=== PATIENT | male | born 1945 | race Caucasian/White ===

== ENCOUNTER → 2016-11-15 | Outpatient (CLI) | payer MEDICARE, OTHER | END | disposition home or self-care (01) | LOC: PCVCCLINIC 09:54 | PROVIDERS: ATTEND Internal Medicine | DX: Z01.810 Encounter for preprocedural cardiovascular examination (principal); I48.0 Paroxysmal atrial fibrillation; I49.9 Cardiac arrhythmia, unspecified; I67.9 Cerebrovascular disease, unspecified; R41.3 Other amnesia; Z79.899 Other long term (current) drug therapy; Z96.653 Presence of artificial knee joint, bilateral; Z87.891 Personal history of nicotine dependence | CPT/HCPCS: 80061; G0463 ==

== ENCOUNTER 2020-08-08 20:25 | Inpatient (IN) | payer MEDICARE, OTHER ==
[~2020-08-08] VITALS: Ht 180.3 cm; Wt 134.3 kg
[2020-08-08 20:35] VITALS: BP 166/101
--- NOTE | 2020-08-08 20:35 | NUR ---
pt. arrived on unit at this time by EMS from [facility]. Pt. complains of pain being 7/10. He is alert and oriented x4, and on 2L NC. call light is within reach with bed in lowest position. Will continue to monitor.
[2020-08-08] MEDS ORDERED: GABA600T PO (21:42)
[2020-08-08] MEDS: GABAPENTIN 300 MG CAPSULE. PO SCH (22:53)
[2020-08-08] MEDS: HYDROcodone/APAP 10/325 1 TAB TABLET PO PRN (22:53)
[2020-08-08 23:00] VITALS: BP 161/94
[2020-08-08] MEDS: IV NORMAL SALINE 1000ML BAG 1,000 ML IV SCH (23:23)
[2020-08-08] MEDS: HYDROmorphone 2 MG/ML VIAL IVP PRN (23:24)
[2020-08-09 02:57] VITALS: BP 127/86
[2020-08-09 07:00] VITALS: BP 135/89
[2020-08-09] MEDS: HYDROcodone/APAP 10/325 1 TAB TABLET PO PRN ×2 (07:08→20:47)
[2020-08-09] MEDS ORDERED: APIX5TAB PO (07:11)
--- NOTE | 2020-08-09 10:29 | NUR ---
SW following. Discussed with RN, pt from home, room air, NPO. Dr. Amaral and Dr. Underwood consulted. SW will continue to follow.
[2020-08-09] MEDS: LIDOCAINE (700MG/PATCH) PATCH. TD SCH (10:30)
--- NOTE | 2020-08-09 10:52 | PDOC1 ---
History and Physical Date of Admission Date of Admission DATE: 08/09/20 TIME: 10:50 Source Source: Chart review, Patient History of Present Illness History of Present Illness MR. Donovan is a 75-year-old male transferred here from [place] after a fall, with acute neck pain. Reports he was gardening, standing on 1 foot ledge when he fell backwards and landed on his midline of his back and subsequently hit his posterior head. 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 ALCOHOL: none Current Medications Current Medications Current Medications Hydromorphone HCl (Dilaudid) 2 mg PRN Q2HR PRN IVP PAIN Last administered on 08/08/20at 23:24; Start 08/08/20 at 21:45 Acetaminophen/ Hydrocodone Bitart (Lortab 10/325) 1 tab PRN Q6HRS PRN PO PAIN Last administered on 08/09/20at 07:08; Start 08/08/20 at 21:45 Sodium Chloride 1,000 ml @ 75 mls/hr [id number] IV Last administered on 08/08/20at 23:23; Start 08/08/20 at 21:45 Gabapentin (Neurontin) 600 mg TID PO Last administered on 08/08/20at 22:53; Start 08/08/20 at 22:00 Lidocaine (Lidoderm) 2 patch DAILY TD ; Start 08/09/20 at 10:30 Miscellaneous (Lidoderm Patch Removal) 1 ea QHS MC ; Start 08/09/20 at 21:00 Active Scripts Active Reported Eliquis (Apixaban) 5 Mg Tablet 10 Mg PO BID Neurontin (Gabapentin) 600 Mg Tablet 600 Mg PO TID Allergies Allergies: Coded Allergies: No Known Drug Allergies (Unverified , 08/08/20) ROS General: No: Chills, Night Sweats, Fatigue, Malaise, Appetite, Other PSYCHOLOGICAL ROS: No: Anxiety, Behavioral Disorder, Concentration difficultie, Decreased libido, Depression, Disorientation, Hallucinations, Hostility, Irritablity, Memory difficulties, Mood Swings, Obsessive thoughts, Physical abuse, Sexual abuse, Sleep disturbances, Suicidal ideation, Other Eyes: No Blurry vision, No Decreased vision, No Double vision, No Dry eyes, No Excessive tearing, No Eye Pain, No Itchy Eyes, No Loss of vision, No Photophobia, No Scotomata, No Uses contacts, No Uses glasses, No Other HEENT: No: Heacaches, Visual Changes, Hearing change, Nasal congestion, Nasal discharge, Oral lesions, Sinus pain, Sore Throat, Epistaxis, Sneezing, Snoring, Tinnitus, Vertigo, Vocal changes, Other Respiratory: No: Cough, Hemoptysis, Orthopnea, Pleuritic Pain, Shortness of breath, SOB with excertion, Sputum Changes, Stridor, Tachypnea, Wheezing, Other Cardiovascular: No Chest Pain, No Palpitations, No Orthopnea, No Paroxysmal Noc. Dyspnea, No Edema, No Lt Headedness, No Other Gastrointestinal: No Nausea, No Vomiting, No Abdominal Pain, No Diarrhea, No Constipation, No Melena, No Hematochezia, No Other Genitourinary: No Dysuria, No Frequency, No Incontinence, No Hematuria, No Retention, No Discharge, No Urgency, No Pain, No Flank Pain, No Other, No , No , No , No , No , No , No Musculoskeletal: Yes Joint Pain, Yes Joint Stiffness, Yes Muscle Pain; No Gait Disturbance, No Joint Swelling, No Pain In:, No Swelling In:, No Other Neurological: No Behavorial Changes, No Bowel/Bladder ControlChng, No Confusion, No Dizziness, No Gait Disturbance, No Headaches, No Impaired Coord/balance, No Memory Loss, No Numbness/Tingling, No Seizures, No Speech Problems, No Tremors, No Visual Changes, No Weakness, No Other Skin: No Dry Skin, No Eczema, No Hair Changes, No Lumps, No Mole Changes, No Mottling, No Nail Changes, No Pruritus, No Rash, No Skin Lesion Changes, No Other, No Acne Physical Exam General: Alert, mild distress HEENT: Atraumatic Heart: S1S2 Abdomen: Normal bowel sounds Extremities: No cyanosis, No edema Skin: No breakdown, No significant lesion Neuro: Normal speech, Normal tone Psych/Mental Status: Mental status NL, Mood NL Vitals Vitals Vital Signs Date Time Temp Pulse Resp B/P (MAP) Pulse Ox O2 Delivery O2 Flow Rate FiO2 08/09/20 07:08 Room Air 08/09/20 07:00 97.8 60 18 135/89 (104) 97 97.8 08/09/20 02:57 2.0 VTE Prophylaxis Ordered VTE Prophylaxis Devices: Yes VTE Pharmacological Prophylaxi: No Assessment/Plan Assessment/Plan fall, acute neck pain MRI back shows acute t7 transferse fracture, Dr. Underwood has seen, imaging reviewed consutl IR, consider kyphoplasty obese, BMI 42 Dr. Tucker from Neurosurg to see Justifications for Admission Other Justification IDANIA TALAMANTES MD Aug 09, 2020 10:52
[2020-08-09 11:00] VITALS: BP 128/74
[2020-08-09] MEDS: GABAPENTIN 300 MG CAPSULE. PO SCH ×3 (11:04→20:47)
[2020-08-09] MEDS: HYDROmorphone 2 MG/ML VIAL IVP PRN ×2 (11:09→19:11)
[2020-08-09] MEDS: IV NORMAL SALINE 1000ML BAG 1,000 ML IV SCH ×2 (12:58→23:33)
--- NOTE | 2020-08-09 13:01 | PDOC ---
Provider Note Date of Service: DATE: 08/09/20 TIME: 12:57 Provider Note Patient seen and examined at 1145 consulted for thoracic compression fracture fell backwards landing on cement c/o right anterior/ inferior chest wall pain on exam, US, normal strength, tenderness with palpation of right chest wall, sensation intact On CT there is a horizontal fracture line across the mid body of T8, the anterior longitudinal ligament is disrupted at that level MRI pending brace ordered Kj consulted Justifications for Admission Other Justification JOSEF ZHAO MD Aug 09, 2020 13:01
--- NOTE | 2020-08-09 13:32 | CONS ---
DATE OF CONSULTATION: 08/09/2020 ATTENDING PHYSICIAN: Dr. Rodriguez. The patient was seen at the request of Dr. López for rehab evaluation. 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 The patient lives alone. He is cleaning some leaves off his house, standing on a wall, lost balance and fell backwards. He was seen at [facility] Emergency Room where he had CT of the chest with contrast, pulmonary angiogram which revealed coronary artery calcification. Heart is enlarged. Thoracic aorta is mildly enlarged, measuring 4.2 cm in diameter, multiple small right paratracheal lymph nodes measuring about 7 mm short axis, mild atelectasis in the lung bases without any effusion, mild pancreatic atrophy. Surgical changes of the stomach. Acute transverse fracture through the T7 vertebral body extending through the osteophyte, anterior longitudinal ligament. There is a bridging ossification anteriorly from T2-T3 and T12-L1. No evidence of acute pulmonary embolism. The patient had a CT scan of the brain and cervical spine which revealed no acute changes. Bilateral cerebral white matter changes likely due to small vessel ischemic changes and cerebral atrophy, posterior right scalp soft tissue hematoma, multilevel degenerative change and right cervical vertebrae resulting in stenosis, moderate left foraminal and mild central canal stenosis at C2-C3, severe right foraminal stenosis at C3-C4, moderate right foraminal stenosis at C4-C5 and moderate to severe bilateral foraminal stenosis at C5-C6, narrowing of C5-C6 disk space. The patient denies any significant neck pain. He had also a chest x-ray done which failed to reveal any acute abnormality. PHYSICAL EXAMINATION: On physical examination today revealed an elderly male. He is alert, oriented to time, place, person and circumstance, follows commands appropriately, moves all 4 extremities voluntarily where he had 4+/5 grade muscle strength. Deep tendon reflexes are decreased overall with absent knee and ankle jerks and he had equal perception of touch and pinprick sensation bilaterally. He had tenderness to palpation over right mid thoracic paraspinal muscles and also over anterior aspect of the chest, junction of the sternum and lower rib. The patient mostly complains about this pain. The patient is obese. He seemed to have equal perception of touch and pinprick sensation bilaterally. He had painful range of motion of all 4 extremity joints, but resist to shoulder abduction causes increased discomfort in his chest and in his back. He had well-healed bilateral total knee arthroplasty scar. He is independent rolling from side to side. I have not tested his transfers or ambulation skills at this time. ASSESSMENT: Elderly male with recent fall off a small wall backwards and sprain, mid thoracic spine and also sprain involving sternocostal joints, right lower ribcage area. The patient with obesity, status post bilateral total knee arthroplasty without any problems and also degenerative disk disease and degenerative joint disease of cervical vertebrae with mild degree of neural foraminal compromise without any significant neck pain. Clinical evidence of peripheral neuropathy. RECOMMENDATION: Agree with the plans for right thoracolumbar support. I am not sure he can tolerate it with his big size. Ask physical therapy and occupational therapy to see him. Agreed with the plans for MRI scan and to consider kyphoplasty if back pain is bothering him, but he is having more discomfort over right lower ribcage attachment to sternum. Dr. López appreciated asking me to participate in the care of this interesting patient. I will be glad to see him for followup with you on as needed basis. DELVIN/DWAIN/DESIRAE DR: DELVIN/leigh ann TID: [id number] CC: Steven Yarbrough MD MTDD
--- NOTE | 2020-08-09 16:32 | RAD ---
MRI THORACIC SPINE WO 08/09/2020 1:57 PM INDICATION: Thoracic fracture COMPARISON: CT chest 08/08/2020. TECHNIQUE: Multiplanar, multisequence MR imaging of the thoracic spine was performed without gadolin ium based contrast. FINDINGS: There is a transversely oriented fracture through the inferior one third of the T7 thoracic vertebra with edema localized to the fracture line. There is disruption of the anterior longitudinal ligament. There is no significant disruption of posterior longitudinal ligament and ligamentum flavum. No sign ificant interspinous edema is identified. There is minimal left posterior epidural hematoma with mini mal mass effect on the thecal sac resulting in mild spinal canal stenosis at T7-T8. No significant di sc herniation, neuroforaminal or associated spinal canal stenosis. Moderate disc height loss at T7-T8 , T8-T9, T9-T10 and T10-11 with disc desiccation. Thoracic aorta is normal in caliber. Heart size is stable. Visualized upper abdomen without significant abnormality. Mild cervical spondylosis is partia lly profiled. IMPRESSION: Transversely oriented fracture involving the T7 vertebral body without significant retropulsion or he ight loss. There is a posterior epidural hematoma resulting in mild mass effect on the thecal sac wit hout compression of the cord. No cord signal alteration is identified. Electronically signed by: Daksha Irvin MD (08/09/2020 4:29 PM) [facility]
[2020-08-09 19:00] VITALS: BP 136/92
[2020-08-09] MEDS: PATCH REMOVAL. MC SCH (21:00)
[2020-08-09 23:00] VITALS: BP 128/84
[2020-08-10 03:00] VITALS: BP 156/103
[2020-08-10 07:00] VITALS: BP 154/97
[2020-08-10] MEDS: LIDOCAINE (700MG/PATCH) PATCH. TD SCH (09:00)
--- NOTE | 2020-08-10 09:55 | NUR ---
Episode this morning. Nurse walked by saw pt yelling. Pt sitting on edge of bed unable to breath c/o midsternal chest pain. BP 184/104. Called Rapid. Ordered 12 lead EKG, IV started on left hand with 22g by the tour production supervisor and gave Dilaudid. Pt stabilized. R/o cardiac issues. Pt stated feeling better. Cont. monitor.
[2020-08-10] MEDS: HYDROmorphone 2 MG/ML VIAL IVP PRN (10:05)
--- NOTE | 2020-08-10 10:09 | PDOC ---
PROGRESS NOTES Date of Service DATE: 08/10/20 TIME: 10:03 Subjective Subjective He admits continued right anterior chest wall pain. Objective Objective Vital Signs Date Time Temp Pulse Resp B/P (MAP) Pulse Ox O2 Delivery O2 Flow Rate FiO2 08/10/20 07:00 98.4 75 18 154/97 (116) 95 Room Air 98.4 08/09/20 21:20 2.0 Intake and Output 08/10/20 07:00 Intake Total 400 ml Output Total 200 ml Balance 200 ml Intake Oral 400 ml Output Urine Total 200 ml # Voids 1 Physical Exam Physical Exam He is sitting at edge of bed with back brace at bedside and he is having difficulty with breathing requiring oxygen by nasal canula and he had his B P at 170/101 mm Hg. Plan Plan of Care To continue present physical and occupational therapy follow up a he can tolerate. Comment Review of Relevant I have reviewed the following items brooks (where applicable) has been applied. Medications Current Medications Hydromorphone HCl (Dilaudid) 2 mg PRN Q2HR PRN IVP PAIN Last administered on 08/09/20at 19:11; Start 08/08/20 at 21:45 Acetaminophen/ Hydrocodone Bitart (Lortab 10/325) 1 tab PRN Q6HRS PRN PO PAIN Last administered on 08/09/20at 20:47; Start 08/08/20 at 21:45 Sodium Chloride 1,000 ml @ 75 mls/hr [id number] IV Last administered on 08/09/20at 12:58; Start 08/08/20 at 21:45 Gabapentin (Neurontin) 600 mg TID PO Last administered on 08/09/20at 20:47; Start 08/08/20 at 22:00 Lidocaine (Lidoderm) 2 patch DAILY TD ; Start 08/09/20 at 10:30 Miscellaneous (Lidoderm Patch Removal) 1 ea QHS MC ; Start 08/09/20 at 21:00 Active Scripts Active Reported Eliquis (Apixaban) 5 Mg Tablet 10 Mg PO BID Neurontin (Gabapentin) 600 Mg Tablet 600 Mg PO TID Vitals/I & O Vital Sign - Last 24 Hours 08/09/20 08/09/20 08/09/20 08/09/20 11:00 11:09 12:59 19:00 Temp 98.0 98.7 98.0 98.7 Pulse 72 90 Resp 18 18 B/P (MAP) 128/74 (92) 136/92 (107) Pulse Ox 97 97 96 O2 Delivery Room Air Room Air Room Air Room Air O2 Flow Rate 2.0 08/09/20 08/09/20 08/09/20 08/09/20 19:11 19:41 19:59 20:47 O2 Delivery Nasal Cannula Nasal Cannula Nasal Cannula Room Air O2 Flow Rate 2.0 2.0 2.0 08/09/20 08/09/20 08/10/20 08/10/20 21:20 23:00 03:00 07:00 Temp 98.2 98.0 98.4 98.2 98.0 98.4 Pulse 76 71 75 Resp 18 18 18 B/P (MAP) 128/84 (99) 156/103 (120) 154/97 (116) Pulse Ox 93 97 95 O2 Delivery Nasal Cannula Room Air Room Air Room Air O2 Flow Rate 2.0 Intake and Output 08/09/20 08/09/20 08/10/20 15:00 23:00 07:00 Intake Total 400 ml Output Total 200 ml Balance 200 ml Justifications for Admission Other Justification EMANUEL KUHN MD Aug 10, 2020 10:09
--- NOTE | 2020-08-10 10:11 | EKG ---
[facility] [address] [place] [address] Test Date: 2020-08-10 Test Time: 10:06:39 Pat Name: TAYLOR MCDUFFIE Department: Room: 442 Gender: M Records Coordinator: YVETTE : 1945 Requested By: IDANIA TALAMANTES Order Number: [id number] Reading MD: Tank Sepulveda Measurements Intervals [place] Rate: 81 P: ME: QRS: 2 QRSD: 108 T: 9 QT: 368 QTc: 433 Interpretive Statements ATRIAL FIBRILLATION Electronically Signed On 08-17-2020 12:56:18 CDT by Tank Sepulveda
[2020-08-10 11:00] VITALS: BP 145/92
[2020-08-10] MEDS ORDERED: LIDO700A21 TD (11:59)
[2020-08-10] MEDS ORDERED: OXYC-325 PO (11:59)
--- NOTE | 2020-08-10 12:03 | PDOC ---
[employer] PROGRESS NOTE Date of Service DOS: DATE: 08/10/20 TIME: 12:02 Chief Complaint Chief Complaint fall, acute neck pain MRI back shows acute t7 transferse fracture, Afib, on eliquis, chronic diastolic CHF obese, BMI 42 History of Present Illness History of Present Illness no surg plans, to wear brace for 2 weeks and follow in neurosurg office pain is too severe for him to get up without assist, may need skilled Vitals/I&O Vitals/I&O: Vital Signs Date Time Temp Pulse Resp B/P (MAP) Pulse Ox O2 Delivery O2 Flow Rate FiO2 08/10/20 07:00 98.4 75 18 154/97 (116) 95 Room Air 98.4 08/09/20 21:20 2.0 I & O 08/09/20 08/09/20 08/10/20 15:00 23:00 07:00 Intake Total 400 ml Output Total 200 ml Balance 200 ml Physical Exam General: Alert, mild distress Heart: Regular rate Abdomen: Normal bowel sounds Extremities: No cyanosis, No edema Skin: No breakdown, No significant lesion Comment Review of Relevant I have reviewed the following items brooks (where applicable) has been applied. Justifications for Admission Other Justification IDANIA TALAMANTES MD Aug 10, 2020 12:03
[2020-08-10] MEDS: GABAPENTIN 300 MG CAPSULE. PO SCH ×3 (12:24→22:08)
[2020-08-10] MEDS: HYDROcodone/APAP 10/325 1 TAB TABLET PO PRN ×2 (12:33→22:08)
--- NOTE | 2020-08-10 12:45 | PDOC ---
PROGRESS NOTES Date of Service DATE: 08/10/20 TIME: 12:42 Subjective Subjective C/O back pain and spasms when getting up out of bed Objective Objective Vital Signs Date Time Temp Pulse Resp B/P (MAP) Pulse Ox O2 Delivery O2 Flow Rate FiO2 08/10/20 12:33 Nasal Cannula 08/10/20 11:00 97.8 66 18 145/92 (109) 98 97.8 08/09/20 21:20 2.0 Intake and Output 08/10/20 07:00 Intake Total 400 ml Output Total 200 ml Balance 200 ml Intake Oral 400 ml Output Urine Total 200 ml # Voids 1 Physical Exam General: Alert, Oriented X3, Cooperative MUSCULOSKELETAL: Other (US) Plan Plan of Care Transversely oriented fracture involving the T7 vertebral body without significant retropulsion or height loss. needs to wear brace when up except for when showering will need to follow in 2 weeks with thoracic spine films PT May need to go to rehab/ SNF D/W Dr. López Comment Review of Relevant I have reviewed the following items brooks (where applicable) has been applied. Medications Current Medications Hydromorphone HCl (Dilaudid) 2 mg PRN Q2HR PRN IVP PAIN Last administered on 08/10/20at 10:05; Start 08/08/20 at 21:45 Acetaminophen/ Hydrocodone Bitart (Lortab 10/325) 1 tab PRN Q6HRS PRN PO PAIN Last administered on 08/10/20at 12:33; Start 08/08/20 at 21:45 Sodium Chloride 1,000 ml @ 75 mls/hr [id number] IV Last administered on 08/09/20at 12:58; Start 08/08/20 at 21:45 Gabapentin (Neurontin) 600 mg TID PO Last administered on 08/10/20at 12:24; Start 08/08/20 at 22:00 Lidocaine (Lidoderm) 2 patch DAILY TD ; Start 08/09/20 at 10:30 Miscellaneous (Lidoderm Patch Removal) 1 ea QHS MC ; Start 08/09/20 at 21:00 Active Scripts Active Reported Eliquis (Apixaban) 5 Mg Tablet 10 Mg PO BID Neurontin (Gabapentin) 600 Mg Tablet 600 Mg PO TID Vitals/I & O Vital Sign - Last 24 Hours 08/09/20 08/09/20 08/09/20/29/21 12:59 19:00 19:11 19:41 Temp 98.7 98.7 Pulse 90 Resp 18 B/P (MAP) 136/92 (107) Pulse Ox 97 96 O2 Delivery Room Air Room Air Nasal Cannula Nasal Cannula O2 Flow Rate 2.0 2.0 2.0 08/09/20 08/09/20 08/09/20 08/09/20 19:59 20:47 21:20 23:00 Temp 98.2 98.2 Pulse 76 Resp 18 B/P (MAP) 128/84 (99) Pulse Ox 93 O2 Delivery Nasal Cannula Room Air Nasal Cannula Room Air O2 Flow Rate 2.0 2.0 08/10/20 08/10/20 08/10/20 08/10/20 03:00 07:00 11:00 12:33 Temp 98.0 98.4 97.8 98.0 98.4 97.8 Pulse 71 75 66 Resp 18 18 18 B/P (MAP) 156/103 (120) 154/97 (116) 145/92 (109) Pulse Ox 97 95 98 O2 Delivery Room Air Room Air Room Air Nasal Cannula Intake and Output 08/09/20 08/09/20 08/10/20 15:00 23:00 07:00 Intake Total 400 ml Output Total 200 ml Balance 200 ml Justifications for Admission Other Justification JOSEF ZHAO MD Aug 10, 2020 12:45
[2020-08-10] MEDS ORDERED: POLYETHYLENE GLYCOL 3350 17 GM PACKET. PO ONE (13:00)
[2020-08-10 15:00] VITALS: BP 145/84
--- NOTE | 2020-08-10 16:00 | NUR ---
Up in chair with TLSO brace. Feeling lots better. Cont. monitor.
[2020-08-10 19:00] VITALS: BP 150/98
[2020-08-10] MEDS: PATCH REMOVAL. MC SCH (22:07)
[2020-08-10] MEDS: IV NORMAL SALINE 1000ML BAG 1,000 ML IV SCH (22:07)
[2020-08-10 23:00] VITALS: BP 139/75
[2020-08-11 03:00] VITALS: BP 138/88
[2020-08-11] MEDS: IV NORMAL SALINE 1000ML BAG 1,000 ML IV SCH ×2 (03:05→18:21)
[2020-08-11] MEDS ORDERED: ALBUTEROL SULFATE 2.5 MG/3 ML NEBU. NEB PRN (03:15)
[2020-08-11] MEDS: HYDROmorphone 2 MG/ML VIAL IVP PRN ×3 (06:10→20:59)
--- NOTE | 2020-08-11 06:58 | RAD ---
XR CHEST 1V INDICATION: increased wheezing . COMPARISON STUDY: 08/08/2020. FINDINGS: Lungs: Normal lung volume. No focal airspace disease. Normal pulmonary vasculature. Pleura: No pleural effusion or pneumothorax. Heart and Mediastinum: Stable cardiomediastinal silhouette and great vessels. IMPRESSION: No consolidation. Electronically signed by: Blane Masterson MD (08/11/2020 6:55 AM) [facility] CENTERSulma
[2020-08-11 07:00] VITALS: BP 141/98
--- NOTE | 2020-08-11 07:16 | NUR ---
0600- pt. had an increased amount of wheezing this morning. RT was paged for a breathing treatment and they stated pt. seems VERY wheezy so RN called MD for a chest xray and pulmonary consult. Pt. is stable now.
--- NOTE | 2020-08-11 08:38 | PDOC ---
PULMONARY PROGRESS NOTES DATE: 08/11/20 TIME: 08:38 Vitals Vital Signs Date Time Temp Pulse Resp B/P (MAP) Pulse Ox O2 Delivery O2 Flow Rate FiO2 08/11/20 06:40 Nasal Cannula 2.0 08/11/20 06:31 98 08/11/20 03:00 98.5 65 18 138/88 (105) 98.5 Medications Active Scripts Medications Dose Route/Sig Max Daily Dose Days Date Category Eliquis (Apixaban) 5 Mg Tablet 10 Mg PO BID 08/09/20 Reported Neurontin (Gabapentin) 600 Mg Tablet 600 Mg PO TID 08/08/20 Reported Impression . Full note dictated Nonspecific bronchitis, wheezing, see orders. DARIAN KYLE MD Aug 11, 2020 08:38
[2020-08-11] MEDS: LIDOCAINE (700MG/PATCH) PATCH. TD SCH (09:00)
[2020-08-11] MEDS: POLYETHYLENE GLYCOL 3350 17 GM PACKET. PO SCH (09:00)
[2020-08-11] MEDS: GABAPENTIN 300 MG CAPSULE. PO SCH ×3 (09:24→20:59)
[2020-08-11] MEDS: HYDROcodone/APAP 10/325 1 TAB TABLET PO PRN ×2 (09:25→18:20)
[2020-08-11] MEDS: DOCUSATE SODIUM 100 MG CAPSULE. PO SCH (09:26)
--- NOTE | 2020-08-11 09:43 | PDOC ---
PROGRESS NOTES Date of Service DATE: 08/11/20 TIME: 09:41 Subjective Subjective He continues with right lower chest wall pain anteriorly over rib cage attachment to sternum. Objective Objective Vital Signs Date Time Temp Pulse Resp B/P (MAP) Pulse Ox O2 Delivery O2 Flow Rate FiO2 08/11/20 09:25 Nasal Cannula 4.0 08/11/20 07:00 97.1 79 12 141/98 (112) 98 97.1 Intake and Output 08/11/20 07:00 Intake Total 690 ml Balance 690 ml Intake Oral 690 ml # Voids 3 Physical Exam Physical Exam He is alert,using oxygen by nasal canula and sitting in bed with head end propped up and he continues to get up with therapy with brace on and he needs assistance to don back brace. Plan Plan of Care To SNF when medically stable as he lives alone. Comment Review of Relevant I have reviewed the following items brooks (where applicable) has been applied. Medications Current Medications Hydromorphone HCl (Dilaudid) 2 mg PRN Q2HR PRN IVP PAIN Last administered on 08/11/20at 06:10; Start 08/08/20 at 21:45 Acetaminophen/ Hydrocodone Bitart (Lortab 10/325) 1 tab PRN Q6HRS PRN PO PAIN Last administered on 08/11/20at 09:25; Start 08/08/20 at 21:45 Sodium Chloride 1,000 ml @ 75 mls/hr [id number] IV Last administered on 08/09/20at 12:58; Start 08/08/20 at 21:45 Gabapentin (Neurontin) 600 mg TID PO Last administered on 08/11/20at 09:24; Start 08/08/20 at 22:00 Lidocaine (Lidoderm) 2 patch DAILY TD ; Start 08/09/20 at 10:30 Miscellaneous (Lidoderm Patch Removal) 1 ea QHS MC ; Start 08/09/20 at 21:00 Polyethylene Glycol (miraLAX PACKET) 17 gm 1X ONCE PO ; Start 08/10/20 at 13:00; Stop 08/10/20 at 13:07; Status DC Polyethylene Glycol (miraLAX PACKET) 17 gm DAILY PO ; Start 08/11/20 at 09:00 Docusate Sodium (Colace) 100 mg DAILY PO Last administered on 08/11/20at 09:26; Start 08/11/20 at 09:00 Albuterol Sulfate (Ventolin Neb Soln) 2.5 mg PRN Q4HRS PRN NEB SHORTNESS OF BREATH; Start 08/11/20 at 03:15 Lorazepam (Ativan Inj) 0.5 mg PRN Q4HRS PRN IVP ANXIETY / AGITATION; Start 08/11/20 at 03:15 Active Scripts Active Reported Eliquis (Apixaban) 5 Mg Tablet 10 Mg PO BID Neurontin (Gabapentin) 600 Mg Tablet 600 Mg PO TID Vitals/I & O Vital Sign - Last 24 Hours 08/10/20 08/10/20 08/10/20 08/10/20 10:35 11:00 12:33 14:00 Temp 97.8 97.8 Pulse 66 Resp 18 B/P (MAP) 145/92 (109) Pulse Ox 98 O2 Delivery Room Air Room Air Nasal Cannula Room Air O2 Flow Rate 3.0 08/10/20 08/10/20 08/10/20 08/10/20 15:00 19:00 20:00 22:08 Temp 98.1 98.1 98.1 98.1 Pulse 77 76 Resp 18 18 B/P (MAP) 145/84 (104) 150/98 (115) Pulse Ox 98 98 O2 Delivery Room Air Room Air Nasal Cannula Nasal Cannula O2 Flow Rate 2.0 2.0 08/10/20 08/10/20 08/11/20 08/11/20 22:40 23:00 03:00 06:10 Temp 98.3 98.5 98.3 98.5 Pulse 65 65 Resp 18 18 B/P (MAP) 139/75 (96) 138/88 (105) Pulse Ox 98 98 O2 Delivery Nasal Cannula Room Air Room Air Nasal Cannula O2 Flow Rate 2.0 2.0 08/11/20 08/11/20 08/11/20 08/11/20 06:31 06:40 07:00 09:25 Temp 97.1 97.1 Pulse 79 Resp 12 B/P (MAP) 141/98 (112) Pulse Ox 98 98 O2 Delivery Nasal Cannula Nasal Cannula Room Air Nasal Cannula O2 Flow Rate 4.0 2.0 2.0 4.0 Intake and Output 08/10/20 08/10/20 08/11/20 15:00 23:00 07:00 Intake Total 240 ml 450 ml Balance 240 ml 450 ml Justifications for Admission Other Justification EMANUEL KUHN MD Aug 11, 2020 09:43
--- NOTE | 2020-08-11 09:47 | PDOC ---
PROGRESS NOTES Date of Service: DATE: 08/11/20 TIME: 09:46 Chief Complaint Chief Complaint impression fall, acute neck pain MRI back shows acute t7 transferse fracture, Transversely oriented fracture involving the T7 vertebral body without significant retropulsion or height loss. posterior epidural hematoma resulting in mild mass effect on the thecal sac without compression of the cord. No cord signal alteration is identified. Afib, on eliquis, chronic diastolic CHF, consult cardiology re eliquis obese, BMI 42 needs to wear brace when up except for when showering neurosurgery follow in 2 weeks with thoracic spine films PT May need to go to rehab/ SNF d/w rn Defer restarting eliquis to cardiology and Neurosurgery The LV EF is about 55%. The LA is mildly enlarged. The aortic root and the proximal ascending aorta are mildly enlarged. Mild MR and mild TR noted. The PA systolic pressure is mildly elevated. STRESS TEST STRESS TEST FINDINGS: 03/04/2017 [facility] Pharmacological Stress Electrocardiogram: The patient's resting heart rate was 65 bpm and the resting blood pressure was 168/68. The patients peak stress heart rate was 91 bpm and the peak stress blood pressure was 158/87. His resting ECG demonstrated atrial fibrillation with a heart rate of 53, there are nonspecific T-wave changes noted. During pharmacologic stress he complained of shortness of breath. This resolved during the recovery phase. During the stress and the recovery phase he had occasional PVCs. He remained in atrial fib throughout. There is no ST segment changes noted. Conclusion: Pharmacologic stress ECG is negative for ischemia. 08-11 d/w rn 39 min pt exam, chart review, > 50% of time spent with exam, chart review, pt care coordination History of Present Illness History of Present Illness no surg plans, to wear brace for 2 weeks and follow in neurosurg office pain is too severe for him to get up without assist, may need skilled The LV EF is about 55%. The LA is mildly enlarged. The aortic root and the proximal ascending aorta are mildly enlarged. Mild MR and mild TR noted. The PA systolic pressure is mildly elevated. STRESS TEST STRESS TEST FINDINGS: 03/04/2017 [facility] Pharmacological Stress Electrocardiogram: The patient's resting heart rate was 65 bpm and the resting blood pressure was 168/68. The patients peak stress heart rate was 91 bpm and the peak stress blood pressure was 158/87. His resting ECG demonstrated atrial fibrillation with a heart rate of 53, there are nonspecific T-wave changes noted. During pharmacologic stress he complained of shortness of breath. This resolved during the recovery phase. During the stress and the recovery phase he had occasional PVCs. He remained in atrial fib throughout. There is no ST segment changes noted. Conclusion: Pharmacologic stress ECG is negative for ischemia. Vitals Vitals Vital Signs Date Time Temp Pulse Resp B/P (MAP) Pulse Ox O2 Delivery O2 Flow Rate FiO2 08/11/20 09:25 Nasal Cannula 4.0 08/11/20 07:00 97.1 79 12 141/98 (112) 98 97.1 Physical Exam General: Alert, Oriented X3, Cooperative, No acute distress Heart: Regular rate, Normal S2 Lungs: Clear Abdomen: Normal bowel sounds, Soft Extremities: No clubbing, No cyanosis, No edema Skin: No rashes, No breakdown, No significant lesion Labs LABS Ambulation Comments * Patient requiring MOD A for walker management and cues to stay within base of support of roller walker for increased safety/stability. Pt. with decreased knee ext with gait bilaterally. Patient with noticeable lean towards L side and needing frequent verbal cues to stay more upright with gait. Other Information * PT will recommend acute rehab to address deficits noted with strength, balance, and activity tolerance impacting safe, functional mobility. Rehab Potential to Achieve Goals * Good Learning Preferences * One-on-One Instruction * Group Instruction * Audio * Discussion Factors Facilitating Goal Achievement * Prior level of function * Response to training Problem List (body system elements) * Impaired fnctnl mobility * Strength * Obesity * Balance * Respiration/perfusion * Age * Knowledge-safe techniques * Skin Integrity * Pain Clinical Presentation * Evolving Evaluation Complexity Level * Moderate Complexity Pt/caregiver agrees with plan of care/goals * Yes Patient condition at conclusion of therapy * Pt in chair * Call light in reach * Phone in reach * PtIn no apparent distress * Pt denies further needs * Visitor with patient Communicated Patient Care With (Name, Title) * Neda RN; TITUS Boswell Goal 1 - Bed Mobility Assistance Required * Independent Goal 2 - Transfers Assistance Required * Independent Goal 2 - Transfer Type * Sit to Stand Goal 3 - Ambulation Assistance Required * Independent Goal 3 - Ambulation Distance * 250' Goal 3 - Ambulation Device * Roller Walker Goal 4 - Stairs Assistance Required * Stand-by Assistance Goal 4 - Number of Stairs * 2-4 Goal 4 - Device on Stairs * Rail on Right * Rail on Left Treatment Plan * Therapeutic Exercise * Bed Mobility Training * Transfer training * Gait Training * Body Mechanics Training * Dynamic Balance Training Frequency of Treatment Expected * 5 visits/week Duration of Treatment Expected * 2 weeks Discharge Recommendations * Acute Rehab facility PATIENT: TAYLOR MCDUFFIE ACCOUNT: [id number] : 1945 LOCATION: [address] [place] [address] AGE: 75 SEX: M EXAM STATUS: ADM IN ORD. PHYSICIAN: IDANIA TALAMANTES MD REASON: increased wheezing PROCEDURE: CHEST AP ONLY XR CHEST 1V INDICATION: increased wheezing . COMPARISON STUDY: 08/08/2020. FINDINGS: Lungs: Normal lung volume. No focal airspace disease. Normal pulmonary vasculature. Pleura: No pleural effusion or pneumothorax. Heart and Mediastinum: Stable cardiomediastinal silhouette and great vessels. IMPRESSION: No consolidation. Electronically signed by: Willa Masterson MD (08/11/2020 6:55 AM) [facility] DICTATED and SIGNED BY: WILLA MASTERSON MD DATE: 08/11/20 [id number] PATIENT: TAYLOR MCDUFFIE ACCOUNT: [id number] : 1945 LOCATION: [address] [place] [address] AGE: 75 SEX: M EXAM STATUS: ADM IN ORD. PHYSICIAN: JOSEF ZHAO MD REASON: thoracic fracture, T8 PROCEDURE: THORACIC SPINE WO CONTRAST MRI THORACIC SPINE WO 08/09/2020 1:57 PM INDICATION: Thoracic fracture COMPARISON: CT chest 08/08/2020. TECHNIQUE: Multiplanar, multisequence MR imaging of the thoracic spine was performed without gadolinium based contrast. FINDINGS: There is a transversely oriented fracture through the inferior one third of the T7 thoracic vertebra with edema localized to the fracture line. There is disruption of the anterior longitudinal ligament. There is no significant disruption of posterior longitudinal ligament and ligamentum flavum. No significant interspinous edema is identified. There is minimal left posterior epidural hematoma with minimal mass effect on the thecal sac resulting in mild spinal canal stenosis at T7-T8. No significant disc herniation, neuroforaminal or associated spinal canal stenosis. Moderate disc height loss at T7-T8, T8-T9, T9-T10 and T10-11 with disc desiccation. Thoracic aorta is normal in caliber. Heart size is stable. Visualized upper abdomen without significant abnormality. Mild cervical spondylosis is partially profiled. IMPRESSION: Transversely oriented fracture involving the T7 vertebral body without significant retropulsion or height loss. There is a posterior epidural hematoma resulting in mild mass effect on the thecal sac without compression of the cord. No cord signal alteration is identified. Electronically signed by: Vikas Duffy MD (08/09/2020 4:29 PM) [facility] DICTATED and SIGNED BY: VIKAS DUFFY MD DATE: 08/09/20 [id number] It helps to think and talk about your own wishes for healthcare in case youre ever not able to tell your loved ones or healthcare team what your wishes are. If you became really sick tomorrow, would your loved ones or healthcare team know what your wishes were? Here are some examples of different sets of goals and health care directives for your conversations: My wish is to use all medical therapies including resuscitation (such as CPR) and artificial life- sustaining treatments (such as machines and medicine) in an intensive care unit, to keep me alive if at all possible. My wish is to live as long as possible, but I dont want attempts to bring me back to life if my heart and breathing stop. I would like full medical care but without using resuscitation or artificial life-sustaining intensive treatments, if these are unlikely to make me live longer or restore me to a certain quality of life. I will accept treatments that try to fix medical problems, but if Im not getting better or going to have a certain quality of life, I would want to switch to focusing only on my comfort and letting my happen naturally. My wish is for healthcare to focus on my comfort and lessen suffering. I would like medical care that focuses only on my quality of life and that allows me to naturally. Consider: What does a good quality of life mean for me? For many people, it is the ability to live independently and tell their own story. I may define it differently. Under what circumstances would I not want to be kept alive by medical treatments, resuscitation, or intensive care? What kind of changes to my health or life might make me change my mind? If I clearly am facing the last chapter of my life, how do I want the story to end? Who do I want to speak for me if I cant speak for myself? Do they understand my preferences? Are they willing to assume the role of my Durable Power of Serger? Can I change my Goals of Care Designation? Yes, your Goals of Care Designation can be changed at any time. It should be reviewed if: your health condition changes your circumstances change (such as new understanding) you are transferred or admitted to another healthcare setting dpoa review, to pt portal 19 min and question review Comment Review of Relevant I have reviewed the following items brooks (where applicable) has been applied. Medications Current Medications Hydromorphone HCl (Dilaudid) 2 mg PRN Q2HR PRN IVP PAIN Last administered on 08/11/20at 06:10; Start 08/08/20 at 21:45 Acetaminophen/ Hydrocodone Bitart (Lortab 10/325) 1 tab PRN Q6HRS PRN PO PAIN Last administered on 08/11/20at 09:25; Start 08/08/20 at 21:45 Sodium Chloride 1,000 ml @ 75 mls/hr [id number] IV Last administered on 08/09/20at 12:58; Start 08/08/20 at 21:45 Gabapentin (Neurontin) 600 mg TID PO Last administered on 08/11/20at 09:24; Start 08/08/20 at 22:00 Lidocaine (Lidoderm) 2 patch DAILY TD ; Start 08/09/20 at 10:30 Miscellaneous (Lidoderm Patch Removal) 1 ea QHS MC ; Start 08/09/20 at 21:00 Polyethylene Glycol (miraLAX PACKET) 17 gm 1X ONCE PO ; Start 08/10/20 at 1 3:00; Stop 08/10/20 at 13:07; Status DC Polyethylene Glycol (miraLAX PACKET) 17 gm DAILY PO ; Start 08/11/20 at 09:00 Docusate Sodium (Colace) 100 mg DAILY PO Last administered on 08/11/20at 09:26; Start 08/11/20 at 09:00 Albuterol Sulfate (Ventolin Neb Soln) 2.5 mg PRN Q4HRS PRN NEB SHORTNESS OF BREATH; Start 08/11/20 at 03:15 Lorazepam (Ativan Inj) 0.5 mg PRN Q4HRS PRN IVP ANXIETY / AGITATION; Start 08/11/20 at 03:15 Active Scripts Active Reported Eliquis (Apixaban) 5 Mg Tablet 10 Mg PO BID Neurontin (Gabapentin) 600 Mg Tablet 600 Mg PO TID Vitals/I & O Vital Sign - Last 24 Hours 08/10/20 08/10/20 08/10/20 08/10/20 10:35 11:00 12:33 14:00 Temp 97.8 97.8 Pulse 66 Resp 18 B/P (MAP) 145/92 (109) Pulse Ox 98 O2 Delivery Room Air Room Air Nasal Cannula Room Air O2 Flow Rate 3.0 08/10/20 08/10/20 08/10/20 08/10/20 15:00 19:00 20:00 22:08 Temp 98.1 98.1 98.1 98.1 Pulse 77 76 Resp 18 18 B/P (MAP) 145/84 (104) 150/98 (115) Pulse Ox 98 98 O2 Delivery Room Air Room Air Nasal Cannula Nasal Cannula O2 Flow Rate 2.0 2.0 08/10/20 08/10/20 08/11/20 08/11/20 22:40 23:00 03:00 06:10 Temp 98.3 98.5 98.3 98.5 Pulse 65 65 Resp 18 18 B/P (MAP) 139/75 (96) 138/88 (105) Pulse Ox 98 98 O2 Delivery Nasal Cannula Room Air Room Air Nasal Cannula O2 Flow Rate 2.0 2.0 08/11/20 08/11/20 08/11/20 08/11/20 06:31 06:40 07:00 09:25 Temp 97.1 97.1 Pulse 79 Resp 12 B/P (MAP) 141/98 (112) Pulse Ox 98 98 O2 Delivery Nasal Cannula Nasal Cannula Room Air Nasal Cannula O2 Flow Rate 4.0 2.0 2.0 4.0 Intake and Output 08/10/20 08/10/20 08/11/20 15:00 23:00 07:00 Intake Total 240 ml 450 ml Balance 240 ml 450 ml Justicifation of Admission Dx: Justifications for Admission: Justification of Admission Dx: Yes Fracture: Fracture FULBRIGHT,LEEANN W MD Aug 11, 2020 09:47
[2020-08-11 11:00] VITALS: BP 119/78
[2020-08-11 11:23] LABS: BASO % 0 % (0-3); EOS # 0.1 x10^3/uL (0.0-0.7); EOS % 2 % (0-3); HEMATOCRIT 38.2 % (39.0-53.0); HEMOGLOBIN 11.9 g/dL (13.0-17.5); LYMPH % 11 % (24-48); MEAN CORPUSCULAR HEMOGLOBIN 23 pg (25-35); MEAN CORPUSCULAR HGB CONC 31 g/dL (31-37); MEAN CORPUSCULAR VOLUME 74 fL (79-100); MONO # 1.1 x10^3/uL (0.0-1.1); MONO % 13 % (0-9); NEUT # 6.3 x10^3/uL (1.8-7.7); NEUT % 74 % (31-73); PLATELET COUNT 169 x10^3/uL (140-400); RED BLOOD COUNT 5.17 x10^6/uL (4.30-5.70); RED CELL DISTRIBUTION WIDTH 16.5 % (11.5-14.5); WHITE BLOOD COUNT 8.4 x10^3/uL (4.0-11.0)
[2020-08-11 11:34] LABS: ALBUMIN 3.3 g/dL (3.4-5.0); CALCIUM 8.3 mg/dL (8.5-10.1); CREATININE 1.1 mg/dL (0.7-1.3); GFR 64.9; POTASSIUM 4.3 mmol/L (3.5-5.1); TOTAL BILIRUBIN 1.3 mg/dL (0.2-1.0); TOTAL PROTEIN 6.6 g/dL (6.4-8.2)
--- NOTE | 2020-08-11 12:28 | NUR ---
[facility] following. Discussed with RN, pt from home alone, 2L (does not use at home), regular diet. Therapy recommending SNF. Pt's daughter, Raven would like him to go to [facility] if pt agreeable. [facility] met with pt, pt agreeable. [facility]H phoned and faxed referral to [facility]. COVID pending for placement - pt has had the COVID vaccine also. Awaiting acceptance decision, and confirmation of when pt will be ready to discharge. [facility]H will continue to follow. Addendum: 08/11/20 at 1524 by PAO CAO Pt accepted at [facility] - plan for discharge tomorrow (08/12/20). RN notified.
--- NOTE | 2020-08-11 13:24 | PDOC2 ---
TERRELL BLACK CATAPULT AND ARRESTING GEAR OFFICER 08/11/20 1323: CARDIAC CONSULT DATE OF CONSULT Date of Consult DATE: 08/11/20 TIME: 13:09 REASON FOR CONSULT Reason for Consult: AFIB on eliquis REFERRING PHYSICIAN Referring Physician: Dwayne SOURCE Source: Chart review, Patient HISTORY OF PRESENT ILLNESS HISTORY OF PRESENT ILLNESS This is a 75 yo male admitted for fall. 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 No lost of consciousness but did have some chest pain, back pain and SOA after the fall which is now absemt. No surgeries warranted at this time and has a thoracic brace. He was initially evaluated at [facility] and transferred to [facility] for further neurosurgery evaluation. He has hx of AFIB and takes eliquis. Apparently he is not on any rate controlling agents. Based on cardiac records he has been on chronic afib at least since 2018. No prior cardioversion and was seen last in 2018 cardiology at [facility]. He has not followed up with any cardiologi st since. He lives alone with his dog. No chest pain, SOA, palpitations no recent episodes of frequent dizziness or syncope prior to his fall. No hx of seziures. No bleeding issues. No prior hx of CAD nor VTE. No frequent falls. PAST MEDICAL HISTORY Cardiovascular: AFIB, HTN, Syncope, Other (NSVT; aortic root enlargement) Pulmonary: No pertinent hx CENTRAL NERVOUS SYSTEM: Other (lacunar infarcts) GI: GERD Heme/Onc: Cancer (prostate) Psych: No pertinent hx Musculoskeletal: Osteoarthritis Renal/: Prostate Ca. Endocrine: No pertinent hx Dermatology: No pertinent hx PAST SURGICAL HISTORY Past Surgical History: Cataract Removal, Hernia Repair (umbilical and right inguinal), Total knee replacement (bilateral), Other (prostatectomy) FAMILY HISTORY Family History: Family History Unknown SOCIAL HISTORY Smoke: No ALCOHOL: none Drugs: None CURRENT MEDICATIONS CURRENT MEDICATIONS Current Medications Medications (Trade) Dose Ordered Sig/Alon Route PRN Reason Start Time Stop Time Status Last Admin Dose Admin Docusate Sodium (Colace) 100 mg DAILY PO 08/11/20 09:00 08/11/20 09:26 ALLERGIES ALLERGIES: Coded Allergies: No Known Drug Allergies (Unverified , 08/08/20) ROS Review of System 14 point ROS evaluated with pertinent positives noted per HPI PHYSICAL EXAM General: Alert, Oriented X3, Cooperative, No acute distress HEENT: Atraumatic, Mucous membr. moist/pink Lungs: Clear to auscultation, Normal air movement, Other (thoracic brace in place) Heart: Other (irregularly irregular) Extremities: No cyanosis, Other (1+ bilateral LE pitting edema) Skin: No breakdown, No significant lesion Neuro: Normal speech, Sensation intact Psych/Mental Status: Mental status NL, Mood NL MUSCULOSKELETAL: Osteoarthritic changes both hands VITALS/I&O VITALS/I&O: Vital Signs Date Time Temp Pulse Resp B/P (MAP) Pulse Ox O2 Delivery O2 Flow Rate FiO2 08/11/20 11:00 98.3 73 13 119/78 (92) 98 Nasal Cannula 2.0 98.3 I & O 08/10/20 08/10/20 08/11/20 15:00 23:00 07:00 Intake Total 240 ml 450 ml Balance 240 ml 450 ml LABS Lab: Laboratory Tests Test 08/11/20 10:50 White Blood Count 8.4 x10^3/uL (4.0-11.0) Red Blood Count 5.17 x10^6/uL (4.30-5.70) Hemoglobin 11.9 g/dL (13.0-17.5) L Hematocrit 38.2 % (39.0-53.0) L Mean Corpuscular Volume 74 fL (79-100) L Mean Corpuscular Hemoglobin 23 pg (25-35) L Mean Corpuscular Hemoglobin Concent 31 g/dL (31-37) Red Cell Distribution Width 16.5 % (11.5-14.5) H Platelet Count 169 x10^3/uL (140-400) Neutrophils (%) (Auto) 74 % (31-73) H Lymphocytes (%) (Auto) 11 % (24-48) L Monocytes (%) (Auto) 13 % (0-9) H Eosinophils (%) (Auto) 2 % (0-3) Basophils (%) (Auto) 0 % (0-3) Neutrophils # (Auto) 6.3 x10^3/uL (1.8-7.7) Lymphocytes # (Auto) 1.0 x10^3/uL (1.0-4.8) Monocytes # (Auto) 1.1 x10^3/uL (0.0-1.1) Eosinophils # (Auto) 0.1 x10^3/uL (0.0-0.7) Basophils # (Auto) 0.0 x10^3/uL (0.0-0.2) Sodium Level 142 mmol/L (136-145) Potassium Level 4.3 mmol/L (3.5-5.1) Chloride Level 104 mmol/L (98-107) Carbon Dioxide Level 29 mmol/L (21-32) Anion Gap 9 (6-14) Blood Urea Nitrogen 17 mg/dL (8-26) Creatinine 1.1 mg/dL (0.7-1.3) Estimated GFR (Cockcroft-Gault) 64.9 BUN/Creatinine Ratio 15 (6-20) Glucose Level 117 mg/dL (70-99) H Calcium Level 8.3 mg/dL (8.5-10.1) L Total Bilirubin 1.3 mg/dL (0.2-1.0) H Aspartate Amino Transferase (AST) 18 U/L (15-37) Alanine Aminotransferase (ALT) 21 U/L (16-63) Alkaline Phosphatase 101 U/L (46-116) Total Protein 6.6 g/dL (6.4-8.2) Albumin 3.3 g/dL (3.4-5.0) L Albumin/Globulin Ratio 1.0 (1.0-1.7) Laboratory Tests 08/11/20 10:50 Laboratory Tests 08/11/20 10:50 ECHOCARDIOGRAM ECHOCARDIOGRAM [facility] 03/04/2017 TTE The LV EF is about 55%. The LA is mildly enlarged. The aortic root and the proximal ascending aorta are mildly enlarged. Mild MR and mild TR noted. The PA systolic pressure is mildly elevated. STRESS TEST STRESS TEST FINDINGS: 03/04/2017 [facility] Pharmacological Stress Electrocardiogram: The patient's resting heart rate was 65 bpm and the resting blood pressure was 168/68. The patients peak stress heart rate was 91 bpm and the peak stress blood pressure was 158/87. His resting ECG demonstrated atrial fibrillation with a heart rate of 53, there are nonspecific T-wave changes noted. During pharmacologic stress he complained of shortness of breath. This resolved during the recovery phase. During the stress and the recovery phase he had occasional PVCs. He remained in atrial fib throughout. There is no ST segment changes noted. Conclusion: Pharmacologic stress ECG is negative for ischemia. ASSESSMENT/PLAN ASSESSMENT/PLAN 1. Traumatic fall with T7 fracture: loss of balance, no associated syncope or presyncopal s/s and no concussion 2. Chronic AFIB: rate controlled and on eliquis 3. Hx of lacunar infarct 4. Hx of prostate CA 5. Morbid obesity Recommendations 1. Awaiting SNU 2. Will need to establish cardiology care. Follow up in office with Dr. Morgan on September 29 1:30 PM 3. Will start on low dose topeol 12.5 mg for rate control 4. Restart eliquis for stroke prevention if OK with neurosurgery 5. Baseline TTE and TSH CHANG MORGAN MD 08/11/201943: CARDIAC CONSULT ASSESSMENT/PLAN ASSESSMENT/PLAN Patient seen and examined. Agree with CASE ASSEMBLER's assessment and plan. Traumatic fall with T7 fracture Permanent atrial fib rate controlled Resume eliquis for stroke prophylaxis Check echo to assess LVF Thank you for your consultation TERRELL BLACK APRN Aug 11, 2020 13:23 CHANG MORGAN MD Aug 11, 2020 19:44
[2020-08-11 14:36] LABS: CHOLESTEROL/HDL RATIO 2.7
[2020-08-11 15:00] VITALS: BP 121/82
--- NOTE | 2020-08-11 17:53 | RAD ---
XR CHEST 1V History: Reason: Cough, SOB / Spl. Instructions: / History: Comparison: August 11, 2020 Findings: Linear bibasilar opacities. No pleural effusion. No pneumothorax. Enlarged cardiac size, unchanged. Impression: 1. Linear bibasilar opacities, likely atelectasis. Electronically signed by: Miek Unger DO (08/11/2020 5:50 PM) [facility] [place]
[2020-08-11] MEDS: METOPROLOL SUCC 24HR ER 25 MG TAB.ER.24H. PO SCH (18:21)
[2020-08-11 19:00] VITALS: BP 129/101
--- NOTE | 2020-08-11 20:48 | CONS ---
DATE OF CONSULTATION: 08/11/2020 ATTENDING PHYSICIAN: Dr. Caryl López. REASON FOR CONSULTATION: The patient is seen in pulmonary consultation at the request of Dr. López for increasing shortness of breath and wheezing. HISTORY OF PRESENT ILLNESS: The patient is a 75-year-old that had an accidental fall at home. He is currently in a restrainer for his chest and back. He was having some issues with increasing shortness of breath and wheezing. The patient has a remote history of tobacco use. Does not utilize any oxygen or metered dose inhalers at home. I was asked to see him in consultation. I reviewed his x-ray, which revealed no consolidation, no effusions. The patient denies fever, chills, night sweats. PAST MEDICAL HISTORY: Chronic AFib, hypertension, syncope, prostate cancer, gastroesophageal reflux. PAST SURGICAL HISTORY: Total knee replacement. ALLERGIES: No known drug allergies. REVIEW OF SYSTEMS: As indicated above, otherwise a 10-point system was reviewed and negative. CURRENT MEDICATIONS: List was reviewed. PHYSICAL EXAMINATION: VITAL SIGNS: Stable. O2 saturation greater than 92%, currently on 2 liters. CHEST: The patient with a brace in place that restricts him from taking a deep breath. LUNGS: Adequate flow with no wheezes. CARDIOVASCULAR: Regular rate and rhythm. ABDOMEN: Soft. EXTREMITIES: No edema. IMPRESSION: 1. Dyspnea and wheezing secondary to nonspecific acute bronchitis and restriction from current therapy with a brace that is restricting the patient from taking a deep breath. 2. Accidental fall. 3. T7 vertebral body fracture. 4. Chronic atrial fibrillation. 5. Prostate cancer. PLAN: 1. Aggressive pulmonary hygiene with incentive spirometry. 2. Oxygen supplementation. 3. P.r.n. nebulized treatments. I do appreciate the privilege in sharing in patient's care. GODWIN HYLTON: Suha TID: [id number]
[2020-08-11] MEDS: PATCH REMOVAL. MC SCH (20:59)
[2020-08-11 23:00] VITALS: BP 132/85
--- NOTE | 2020-08-12 02:25 | NUR ---
Pt found in kneeling position with arms in the black chair in room. Pt stated "I was trying to pee and poop." Pt stated to this RN that he did not fall, he lowered himself to the ground. Pt c/o pain in abdomen rating it 10/10 and SOB. Pt assisted back into bed by this RN and nurses aide. Vital signs-169/103, HR 63, 83% on 4L NC. Simple face mask to 10L placed on patient, sPo2 quickly kristina to 100%. RT paged for breathing tx. PRN pain medication given. Repeat vitals BP 146/97, HR 72, 100% on 4L NC. Bed alarm active, yellow non-slip socks on, call light in reach, and urinal on bedside table. retail pricing coordinator and nursing water and sewer systems supervisor notified. Will continue to monitor.
[2020-08-12] MEDS: HYDROmorphone 2 MG/ML VIAL IVP PRN ×3 (02:33→20:21)
[2020-08-12 03:00] VITALS: BP 122/74
[2020-08-12 07:00] VITALS: BP 141/91
--- NOTE | 2020-08-12 08:50 | PDOC ---
PULMONARY PROGRESS NOTES DATE: 08/12/20 TIME: 08:50 Vitals Vital Signs Date Time Temp Pulse Resp B/P (MAP) Pulse Ox O2 Delivery O2 Flow Rate FiO2 08/12/20 07:00 98.8 69 18 141/91 (108) 98 Nasal Cannula 4.0 98.8 Lungs: Clear Labs Laboratory Tests Test 08/11/20 10:50 08/11/20 13:30 White Blood Count 8.4 x10^3/uL (4.0-11.0) Red Blood Count 5.17 x10^6/uL (4.30-5.70) Hemoglobin 11.9 g/dL (13.0-17.5) Hematocrit 38.2 % (39.0-53.0) Mean Corpuscular Volume 74 fL (79-100) Mean Corpuscular Hemoglobin 23 pg (25-35) Mean Corpuscular Hemoglobin Concent 31 g/dL (31-37) Red Cell Distribution Width 16.5 % (11.5-14.5) Platelet Count 169 x10^3/uL (140-400) Neutrophils (%) (Auto) 74 % (31-73) Lymphocytes (%) (Auto) 11 % (24-48) Monocytes (%) (Auto) 13 % (0-9) Eosinophils (%) (Auto) 2 % (0-3) Basophils (%) (Auto) 0 % (0-3) Neutrophils # (Auto) 6.3 x10^3/uL (1.8-7.7) Lymphocytes # (Auto) 1.0 x10^3/uL (1.0-4.8) Monocytes # (Auto) 1.1 x10^3/uL (0.0-1.1) Eosinophils # (Auto) 0.1 x10^3/uL (0.0-0.7) Basophils # (Auto) 0.0 x10^3/uL (0.0-0.2) Sodium Level 142 mmol/L (136-145) Potassium Level 4.3 mmol/L (3.5-5.1) Chloride Level 104 mmol/L (98-107) Carbon Dioxide Level 29 mmol/L (21-32) Anion Gap 9 (6-14) Blood Urea Nitrogen 17 mg/dL (8-26) Creatinine 1.1 mg/dL (0.7-1.3) Estimated GFR (Cockcroft-Gault) 64.9 BUN/Creatinine Ratio 15 (6-20) Glucose Level 117 mg/dL (70-99) Calcium Level 8.3 mg/dL (8.5-10.1) Total Bilirubin 1.3 mg/dL (0.2-1.0) Aspartate Amino Transf (AST/SGOT) 18 U/L (15-37) Alanine Aminotransferase (ALT/SGPT) 21 U/L (16-63) Alkaline Phosphatase 101 U/L (46-116) Total Protein 6.6 g/dL (6.4-8.2) Albumin 3.3 g/dL (3.4-5.0) Albumin/Globulin Ratio 1.0 (1.0-1.7) Triglycerides Level 71 mg/dL (0-150) Cholesterol Level 145 mg/dL (0-200) LDL Cholesterol, Calculated 78 mg/dL (0-100) VLDL Cholesterol, Calculated 14 mg/dL (0-40) Non-HDL Cholesterol Calculated 92 mg/dL (0-129) HDL Cholesterol 53 mg/dL (40-60) Cholesterol/HDL Ratio 2.7 Thyroid Stimulating Hormone (TSH) 0.749 uIU/mL (0.358-3.74) SARS-CoV-2 RNA (LORNA) Invalid (Negative) SARS-CoV-2 Antigen (Rapid) Negative (NEGATIVE) Laboratory Tests Test 08/11/20 10:50 08/11/20 13:30 White Blood Count 8.4 x10^3/uL (4.0-11.0) Red Blood Count 5.17 x10^6/uL (4.30-5.70) Hemoglobin 11.9 g/dL (13.0-17.5) Hematocrit 38.2 % (39.0-53.0) Mean Corpuscular Volume 74 fL (79-100) Mean Corpuscular Hemoglobin 23 pg (25-35) Mean Corpuscular Hemoglobin Concent 31 g/dL (31-37) Red Cell Distribution Width 16.5 % (11.5-14.5) Platelet Count 169 x10^3/uL (140-400) Neutrophils (%) (Auto) 74 % (31-73) Lymphocytes (%) (Auto) 11 % (24-48) Monocytes (%) (Auto) 13 % (0-9) Eosinophils (%) (Auto) 2 % (0-3) Basophils (%) (Auto) 0 % (0-3) Neutrophils # (Auto) 6.3 x10^3/uL (1.8-7.7) Lymphocytes # (Auto) 1.0 x10^3/uL (1.0-4.8) Monocytes # (Auto) 1.1 x10^3/uL (0.0-1.1) Eosinophils # (Auto) 0.1 x10^3/uL (0.0-0.7) Basophils # (Auto) 0.0 x10^3/uL (0.0-0.2) Sodium Level 142 mmol/L (136-145) Potassium Level 4.3 mmol/L (3.5-5.1) Chloride Level 104 mmol/L (98-107) Carbon Dioxide Level 29 mmol/L (21-32) Anion Gap 9 (6-14) Blood Urea Nitrogen 17 mg/dL (8-26) Creatinine 1.1 mg/dL (0.7-1.3) Estimated GFR (Cockcroft-Gault) 64.9 BUN/Creatinine Ratio 15 (6-20) Glucose Level 117 mg/dL (70-99) Calcium Level 8.3 mg/dL (8.5-10.1) Total Bilirubin 1.3 mg/dL (0.2-1.0) Aspartate Amino Transf (AST/SGOT) 18 U/L (15-37) Alanine Aminotransferase (ALT/SGPT) 21 U/L (16-63) Alkaline Phosphatase 101 U/L (46-116) Total Protein 6.6 g/dL (6.4-8.2) Albumin 3.3 g/dL (3.4-5.0) Albumin/Globulin Ratio 1.0 (1.0-1.7) Triglycerides Level 71 mg/dL (0-150) Cholesterol Level 145 mg/dL (0-200) LDL Cholesterol, Calculated 78 mg/dL (0-100) VLDL Cholesterol, Calculated 14 mg/dL (0-40) Non-HDL Cholesterol Calculated 92 mg/dL (0-129) HDL Cholesterol 53 mg/dL (40-60) Cholesterol/HDL Ratio 2.7 Thyroid Stimulating Hormone (TSH) 0.749 uIU/mL (0.358-3.74) SARS-CoV-2 RNA (LORNA) Invalid (Negative) SARS-CoV-2 Antigen (Rapid) Negative (NEGATIVE) Medications Active Scripts Medications Dose Route/Sig Max Daily Dose Days Date Category Eliquis (Apixaban) 5 Mg Tablet 10 Mg PO BID 08/09/20 Reported Neurontin (Gabapentin) 600 Mg Tablet 600 Mg PO TID 08/08/20 Reported Impression . Full note dictated Nonspecific bronchitis, wheezing, see orders. DARIAN KYLE MD Aug 12, 2020 08:50
--- NOTE | 2020-08-12 08:51 | PDOC ---
PULMONARY PROGRESS NOTES DATE: 08/12/20 TIME: 08:51 Subjective Pt. requiring more oxygen more SOA and increased cough today Vitals Vital Signs Date Time Temp Pulse Resp B/P (MAP) Pulse Ox O2 Delivery O2 Flow Rate FiO2 08/12/20 07:00 98.8 69 18 141/91 (108) 98 Nasal Cannula 4.0 98.8 ROS: No Nausea, No Chest Pain, No Abdominal Pain General: Alert, Oriented X4 Lungs: Clear Cardiovascular: S1 Abdomen: Soft Neuro Exam: Alert Extremities: No Edema Skin: Warm, Dry Labs Laboratory Tests Test 08/11/20 10:50 08/11/20 13:30 White Blood Count 8.4 x10^3/uL (4.0-11.0) Red Blood Count 5.17 x10^6/uL (4.30-5.70) Hemoglobin 11.9 g/dL (13.0-17.5) Hematocrit 38.2 % (39.0-53.0) Mean Corpuscular Volume 74 fL (79-100) Mean Corpuscular Hemoglobin 23 pg (25-35) Mean Corpuscular Hemoglobin Concent 31 g/dL (31-37) Red Cell Distribution Width 16.5 % (11.5-14.5) Platelet Count 169 x10^3/uL (140-400) Neutrophils (%) (Auto) 74 % (31-73) Lymphocytes (%) (Auto) 11 % (24-48) Monocytes (%) (Auto) 13 % (0-9) Eosinophils (%) (Auto) 2 % (0-3) Basophils (%) (Auto) 0 % (0-3) Neutrophils # (Auto) 6.3 x10^3/uL (1.8-7.7) Lymphocytes # (Auto) 1.0 x10^3/uL (1.0-4.8) Monocytes # (Auto) 1.1 x10^3/uL (0.0-1.1) Eosinophils # (Auto) 0.1 x10^3/uL (0.0-0.7) Basophils # (Auto) 0.0 x10^3/uL (0.0-0.2) Sodium Level 142 mmol/L (136-145) Potassium Level 4.3 mmol/L (3.5-5.1) Chloride Level 104 mmol/L (98-107) Carbon Dioxide Level 29 mmol/L (21-32) Anion Gap 9 (6-14) Blood Urea Nitrogen 17 mg/dL (8-26) Creatinine 1.1 mg/dL (0.7-1.3) Estimated GFR (Cockcroft-Gault) 64.9 BUN/Creatinine Ratio 15 (6-20) Glucose Level 117 mg/dL (70-99) Calcium Level 8.3 mg/dL (8.5-10.1) Total Bilirubin 1.3 mg/dL (0.2-1.0) Aspartate Amino Transf (AST/SGOT) 18 U/L (15-37) Alanine Aminotransferase (ALT/SGPT) 21 U/L (16-63) Alkaline Phosphatase 101 U/L (46-116) Total Protein 6.6 g/dL (6.4-8.2) Albumin 3.3 g/dL (3.4-5.0) Albumin/Globulin Ratio 1.0 (1.0-1.7) Triglycerides Level 71 mg/dL (0-150) Cholesterol Level 145 mg/dL (0-200) LDL Cholesterol, Calculated 78 mg/dL (0-100) VLDL Cholesterol, Calculated 14 mg/dL (0-40) Non-HDL Cholesterol Calculated 92 mg/dL (0-129) HDL Cholesterol 53 mg/dL (40-60) Cholesterol/HDL Ratio 2.7 Thyroid Stimulating Hormone (TSH) 0.749 uIU/mL (0.358-3.74) SARS-CoV-2 RNA (LORNA) Invalid (Negative) SARS-CoV-2 Antigen (Rapid) Negative (NEGATIVE) Laboratory Tests Test 08/11/20 10:50 08/11/20 13:30 White Blood Count 8.4 x10^3/uL (4.0-11.0) Red Blood Count 5.17 x10^6/uL (4.30-5.70) Hemoglobin 11.9 g/dL (13.0-17.5) Hematocrit 38.2 % (39.0-53.0) Mean Corpuscular Volume 74 fL (79-100) Mean Corpuscular Hemoglobin 23 pg (25-35) Mean Corpuscular Hemoglobin Concent 31 g/dL (31-37) Red Cell Distribution Width 16.5 % (11.5-14.5) Platelet Count 169 x10^3/uL (140-400) Neutrophils (%) (Auto) 74 % (31-73) Lymphocytes (%) (Auto) 11 % (24-48) Monocytes (%) (Auto) 13 % (0-9) Eosinophils (%) (Auto) 2 % (0-3) Basophils (%) (Auto) 0 % (0-3) Neutrophils # (Auto) 6.3 x10^3/uL (1.8-7.7) Lymphocytes # (Auto) 1.0 x10^3/uL (1.0-4.8) Monocytes # (Auto) 1.1 x10^3/uL (0.0-1.1) Eosinophils # (Auto) 0.1 x10^3/uL (0.0-0.7) Basophils # (Auto) 0.0 x10^3/uL (0.0-0.2) Sodium Level 142 mmol/L (136-145) Potassium Level 4.3 mmol/L (3.5-5.1) Chloride Level 104 mmol/L (98-107) Carbon Dioxide Level 29 mmol/L (21-32) Anion Gap 9 (6-14) Blood Urea Nitrogen 17 mg/dL (8-26) Creatinine 1.1 mg/dL (0.7-1.3) Estimated GFR (Cockcroft-Gault) 64.9 BUN/Creatinine Ratio 15 (6-20) Glucose Level 117 mg/dL (70-99) Calcium Level 8.3 mg/dL (8.5-10.1) Total Bilirubin 1.3 mg/dL (0.2-1.0) Aspartate Amino Transf (AST/SGOT) 18 U/L (15-37) Alanine Aminotransferase (ALT/SGPT) 21 U/L (16-63) Alkaline Phosphatase 101 U/L (46-116) Total Protein 6.6 g/dL (6.4-8.2) Albumin 3.3 g/dL (3.4-5.0) Albumin/Globulin Ratio 1.0 (1.0-1.7) Triglycerides Level 71 mg/dL (0-150) Cholesterol Level 145 mg/dL (0-200) LDL Cholesterol, Calculated 78 mg/dL (0-100) VLDL Cholesterol, Calculated 14 mg/dL (0-40) Non-HDL Cholesterol Calculated 92 mg/dL (0-129) HDL Cholesterol 53 mg/dL (40-60) Cholesterol/HDL Ratio 2.7 Thyroid Stimulating Hormone (TSH) 0.749 uIU/mL (0.358-3.74) SARS-CoV-2 RNA (LORNA) Invalid (Negative) SARS-CoV-2 Antigen (Rapid) Negative (NEGATIVE) Medications Active Scripts Medications Dose Route/Sig Max Daily Dose Days Date Category Eliquis (Apixaban) 5 Mg Tablet 10 Mg PO BID 08/09/20 Reported Neurontin (Gabapentin) 600 Mg Tablet 600 Mg PO TID 08/08/20 Reported Impression . IMPRESSION: 1. Dyspnea and wheezing secondary to nonspecific acute bronchitis and restriction from current therapy with a brace that is restricting the patient from taking a deep breath. 2. Accidental fall. 3. T7 vertebral body fracture. 4. Chronic atrial fibrillation. 5. Prostate cancer. 6. COVID-19 + Plan . Updated 08/12/20 Continue supplemental oxygen to keep sats above 92% Now COVID positive-- isolation precautions IS at bedside will start steroids, Vit. C, D and zinc Obtain CTA chest for Possible PE Follow neurosurgery recs-- DVT/GI PPX D/W RN PLAN: 08/11/20 1. Aggressive pulmonary hygiene with incentive spirometry. 2. Oxygen supplementation. 3. P.r.n. nebulized treatments. DARIAN KYLE MD Aug 12, 2020 08:51
[2020-08-12] MEDS: POLYETHYLENE GLYCOL 3350 17 GM PACKET. PO SCH (09:00)
[2020-08-12] MEDS: LIDOCAINE (700MG/PATCH) PATCH. TD SCH (09:00)
--- NOTE | 2020-08-12 09:37 | PDOC ---
PROGRESS NOTES Date of Service DATE: 08/12/20 TIME: 09:31 Subjective Subjective He admits continued chest wall pain and SOB with exertion and trying to go to bathroom last night he felt weak and fell down. Objective Objective Vital Signs Date Time Temp Pulse Resp B/P (MAP) Pulse Ox O2 Delivery O2 Flow Rate FiO2 08/12/20 07:00 98.8 69 18 141/91 (108) 98 Nasal Cannula 4.0 98.8 Intake and Output 08/12/20 07:00 Intake Total 740 ml Output Total 100 ml Balance 640 ml Intake Oral 740 ml Output Urine Total 100 ml # Voids 3 # Bowel Movements 1 Physical Exam Physical Exam He is supine in bed with head end of bed propped up and he re is using oxygen by nasal canula and he continues with tenderness to palpation over right lower rib cage attachment to sternum and right mid thoracic paraspinal muscles and he requires 2 person assistance for transfers. Plan Plan of Care To SNF when medically stable. Comment Review of Relevant I have reviewed the following items brooks (where applicable) has been applied. Labs Laboratory Tests Test 08/11/20 10:50 08/11/20 13:30 White Blood Count 8.4 x10^3/uL (4.0-11.0) Red Blood Count 5.17 x10^6/uL (4.30-5.70) Hemoglobin 11.9 g/dL (13.0-17.5) Hematocrit 38.2 % (39.0-53.0) Mean Corpuscular Volume 74 fL (79-100) Mean Corpuscular Hemoglobin 23 pg (25-35) Mean Corpuscular Hemoglobin Concent 31 g/dL (31-37) Red Cell Distribution Width 16.5 % (11.5-14.5) Platelet Count 169 x10^3/uL (140-400) Neutrophils (%) (Auto) 74 % (31-73) Lymphocytes (%) (Auto) 11 % (24-48) Monocytes (%) (Auto) 13 % (0-9) Eosinophils (%) (Auto) 2 % (0-3) Basophils (%) (Auto) 0 % (0-3) Neutrophils # (Auto) 6.3 x10^3/uL (1.8-7.7) Lymphocytes # (Auto) 1.0 x10^3/uL (1.0-4.8) Monocytes # (Auto) 1.1 x10^3/uL (0.0-1.1) Eosinophils # (Auto) 0.1 x10^3/uL (0.0-0.7) Basophils # (Auto) 0.0 x10^3/uL (0.0-0.2) Sodium Level 142 mmol/L (136-145) Potassium Level 4.3 mmol/L (3.5-5.1) Chloride Level 104 mmol/L (98-107) Carbon Dioxide Level 29 mmol/L (21-32) Anion Gap 9 (6-14) Blood Urea Nitrogen 17 mg/dL (8-26) Creatinine 1.1 mg/dL (0.7-1.3) Estimated GFR (Cockcroft-Gault) 64.9 BUN/Creatinine Ratio 15 (6-20) Glucose Level 117 mg/dL (70-99) Calcium Level 8.3 mg/dL (8.5-10.1) Total Bilirubin 1.3 mg/dL (0.2-1.0) Aspartate Amino Transf (AST/SGOT) 18 U/L (15-37) Alanine Aminotransferase (ALT/SGPT) 21 U/L (16-63) Alkaline Phosphatase 101 U/L (46-116) Total Protein 6.6 g/dL (6.4-8.2) Albumin 3.3 g/dL (3.4-5.0) Albumin/Globulin Ratio 1.0 (1.0-1.7) Triglycerides Level 71 mg/dL (0-150) Cholesterol Level 145 mg/dL (0-200) LDL Cholesterol, Calculated 78 mg/dL (0-100) VLDL Cholesterol, Calculated 14 mg/dL (0-40) Non-HDL Cholesterol Calculated 92 mg/dL (0-129) HDL Cholesterol 53 mg/dL (40-60) Cholesterol/HDL Ratio 2.7 Thyroid Stimulating Hormone (TSH) 0.749 uIU/mL (0.358-3.74) SARS-CoV-2 RNA (LORNA) Invalid (Negative) SARS-CoV-2 Antigen (Rapid) Negative (NEGATIVE) Laboratory Tests Test 08/11/20 10:50 08/11/20 13:30 White Blood Count 8.4 x10^3/uL (4.0-11.0) Red Blood Count 5.17 x10^6/uL (4.30-5.70) Hemoglobin 11.9 g/dL (13.0-17.5) Hematocrit 38.2 % (39.0-53.0) Mean Corpuscular Volume 74 fL (79-100) Mean Corpuscular Hemoglobin 23 pg (25-35) Mean Corpuscular Hemoglobin Concent 31 g/dL (31-37) Red Cell Distribution Width 16.5 % (11.5-14.5) Platelet Count 169 x10^3/uL (140-400) Neutrophils (%) (Auto) 74 % (31-73) Lymphocytes (%) (Auto) 11 % (24-48) Monocytes (%) (Auto) 13 % (0-9) Eosinophils (%) (Auto) 2 % (0-3) Basophils (%) (Auto) 0 % (0-3) Neutrophils # (Auto) 6.3 x10^3/uL (1.8-7.7) Lymphocytes # (Auto) 1.0 x10^3/uL (1.0-4.8) Monocytes # (Auto) 1.1 x10^3/uL (0.0-1.1) Eosinophils # (Auto) 0.1 x10^3/uL (0.0-0.7) Basophils # (Auto) 0.0 x10^3/uL (0.0-0.2) Sodium Level 142 mmol/L (136-145) Potassium Level 4.3 mmol/L (3.5-5.1) Chloride Level 104 mmol/L (98-107) Carbon Dioxide Level 29 mmol/L (21-32) Anion Gap 9 (6-14) Blood Urea Nitrogen 17 mg/dL (8-26) Creatinine 1.1 mg/dL (0.7-1.3) Estimated GFR (Cockcroft-Gault) 64.9 BUN/Creatinine Ratio 15 (6-20) Glucose Level 117 mg/dL (70-99) Calcium Level 8.3 mg/dL (8.5-10.1) Total Bilirubin 1.3 mg/dL (0.2-1.0) Aspartate Amino Transf (AST/SGOT) 18 U/L (15-37) Alanine Aminotransferase (ALT/SGPT) 21 U/L (16-63) Alkaline Phosphatase 101 U/L (46-116) Total Protein 6.6 g/dL (6.4-8.2) Albumin 3.3 g/dL (3.4-5.0) Albumin/Globulin Ratio 1.0 (1.0-1.7) Triglycerides Level 71 mg/dL (0-150) Cholesterol Level 145 mg/dL (0-200) LDL Cholesterol, Calculated 78 mg/dL (0-100) VLDL Cholesterol, Calculated 14 mg/dL (0-40) Non-HDL Cholesterol Calculated 92 mg/dL (0-129) HDL Cholesterol 53 mg/dL (40-60) Cholesterol/HDL Ratio 2.7 Thyroid Stimulating Hormone (TSH) 0.749 uIU/mL (0.358-3.74) SARS-CoV-2 RNA (LORNA) Invalid (Negative) SARS-CoV-2 Antigen (Rapid) Negative (NEGATIVE) Medications Current Medications Hydromorphone HCl (Dilaudid) 2 mg PRN Q2HR PRN IVP PAIN Last administered on 08/12/20at 02:41; Start 08/08/20 at 21:45 Acetaminophen/ Hydrocodone Bitart (Lortab 10/325) 1 tab PRN Q6HRS PRN PO PAIN Last administered on 08/11/20at 18:20; Start 08/08/20 at 21:45 Sodium Chloride 1,000 ml @ 45 mls/hr [id number] IV Last administered on 08/09/20at 12:58; Start 08/08/20 at 21:45 Gabapentin (Neurontin) 600 mg TID PO Last administered on 08/11/20at 20:59; Start 08/08/20 at 22:00 Lidocaine (Lidoderm) 2 patch DAILY TD ; Start 08/09/20 at 10:30 Miscellaneous (Lidoderm Patch Removal) 1 ea QHS ; Start 08/09/20 at 21:00 Polyethylene Glycol (miraLAX PACKET) 17 gm 1X ONCE PO ; Start 08/10/20 at 13:00; Stop 08/10/20 at 13:07; Status DC Polyethylene Glycol (miraLAX PACKET) 17 gm DAILY PO ; Start 08/11/20 at 09:00 Docusate Sodium (Colace) 100 mg DAILY PO Last administered on 08/11/20at 09:26; Start 08/11/20 at 09:00 Albuterol Sulfate (Ventolin Neb Soln) 2.5 mg PRN Q4HRS PRN NEB SHORTNESS OF BREATH Last administered on 08/12/20at 03:10; Start 08/11/20 at 03:15 Lorazepam (Ativan Inj) 0.5 mg PRN Q4HRS PRN IVP ANXIETY / AGITATION; Start 08/11/20 at 03:15 Metoprolol Succinate (Toprol Xl) 12.5 mg DAILY PO Last administered on 08/11/20at 18:21; Start 08/11/20 at 15:00 Apixaban (Eliquis) 5 mg BID PO ; Start 08/12/20 at 09:00 Active Scripts Active Reported Eliquis (Apixaban) 5 Mg Tablet 5 Mg PO BID Neurontin (Gabapentin) 600 Mg Tablet 600 Mg PO TID Vitals/I & O Vital Sign - Last 24 Hours 08/11/20 08/11/20 08/11/20 08/11/20 10:00 11:00 15:00 16:00 Temp 98.3 98.2 98.3 98.2 Pulse 73 76 Resp 13 16 B/P (MAP) 119/78 (92) 121/82 (95) Pulse Ox 98 98 O2 Delivery Nasal Cannula Nasal Cannula Nasal Cannula Nasal Cannula O2 Flow Rate 4.0 2.0 2.0 4.0 08/11/20 08/11/20 08/11/20 08/11/20 16:34 18:20 18:21 18:45 Pulse 85 B/P (MAP) 134/103 O2 Delivery Nasal Cannula Room Air Nasal Cannula O2 Flow Rate 4.0 08/11/20 08/11/20 08/11/20 08/11/20 19:00 20:00 21:38 23:00 Temp 98.5 96.9 98.5 96.9 Pulse 68 63 Resp 16 16 B/P (MAP) 129/101 (110) 132/85 (101) Pulse Ox 93 98 O2 Delivery Nasal Cannula Nasal Cannula Nasal Cannula Nasal Cannula O2 Flow Rate 2.0 4.0 2.0 08/12/20 08/12/20 08/12/20 08/12/20 02:41 03:00 03:10 07:00 Temp 98.0 98.8 98.0 98.8 Pulse 74 69 Resp 16 18 B/P (MAP) 122/74 (90) 141/91 (108) Pulse Ox 100 100 97 98 O2 Delivery Nasal Cannula Nasal Cannula Nasal Cannula Nasal Cannula O2 Flow Rate 4.0 4.0 4.0 4.0 Intake and Output 08/11/20 08/11/20 08/12/20 15:00 23:00 07:00 Intake Total 520 ml 220 ml Output Total 100 ml Balance 520 ml 120 ml Justifications for Admission Other Justification EMANUEL KUHN MD Aug 12, 2020 09:37
[2020-08-12 09:51] LABS: BASO % 0 % (0-3); EOS # 0.2 x10^3/uL (0.0-0.7); EOS % 2 % (0-3); HEMOGLOBIN 12.6 g/dL (13.0-17.5); LYMPH # 1.6 x10^3/uL (1.0-4.8); LYMPH % 17 % (24-48); MEAN CORPUSCULAR HEMOGLOBIN 23 pg (25-35); MEAN CORPUSCULAR HGB CONC 32 g/dL (31-37); MEAN CORPUSCULAR VOLUME 74 fL (79-100); MONO # 1.1 x10^3/uL (0.0-1.1); MONO % 12 % (0-9); NEUT # 6.5 x10^3/uL (1.8-7.7); NEUT % 69 % (31-73); PLATELET COUNT 187 x10^3/uL (140-400); RED BLOOD COUNT 5.42 x10^6/uL (4.30-5.70); WHITE BLOOD COUNT 9.4 x10^3/uL (4.0-11.0)
[2020-08-12 10:00] LABS: CALCIUM 8.3 mg/dL (8.5-10.1); CREATININE 1.1 mg/dL (0.7-1.3); GFR 64.9; MAGNESIUM 2.4 mg/dL (1.8-2.4); POTASSIUM 4.4 mmol/L (3.5-5.1)
[2020-08-12 11:00] VITALS: BP 110/76
[2020-08-12] MEDS: GABAPENTIN 300 MG CAPSULE. PO SCH ×3 (11:02→20:19)
[2020-08-12] MEDS: DOCUSATE SODIUM 100 MG CAPSULE. PO SCH (11:02)
[2020-08-12] MEDS: METOPROLOL SUCC 24HR ER 25 MG TAB.ER.24H. PO SCH (11:03)
[2020-08-12] MEDS: HYDROcodone/APAP 10/325 1 TAB TABLET PO PRN (11:03)
[2020-08-12] MEDS: APIXABAN 5 MG TABLET. PO SCH ×2 (11:05→20:20)
--- NOTE | 2020-08-12 11:58 | PDOC ---
TERRELL BLACK [employer] 08/12/20 1158: CARDIO Progress Notes Date and Time Date of Service 08/12/2020 Time of Evaluation 1130 Subjective Subjective: No shortness of breath, No Palpitations, Other (holding RUQ abd pain complaining of pain) Vitals Vitals Vital Signs Date Time Temp Pulse Resp B/P (MAP) Pulse Ox O2 Delivery O2 Flow Rate FiO2 08/12/20 11:03 84 132/83 08/12/20 11:03 Room Air 08/12/20 11:00 98.7 17 100 4.0 98.7 Weight Weight [ ] Input and Output Intake and Output Intake and Output 08/12/20 06:59 Intake Total 740 ml Output Total 100 ml Balance 640 ml Intake Oral 740 ml Output Urine Total 100 ml # Voids 3 # Bowel Movements 1 Laboratory Labs Laboratory Tests Test 08/11/20 13:30 08/12/20 09:25 SARS-CoV-2 RNA (LORNA) Invalid (Negative) SARS-CoV-2 Antigen (Rapid) Negative (NEGATIVE) White Blood Count 9.4 x10^3/uL (4.0-11.0) Red Blood Count 5.42 x10^6/uL (4.30-5.70) Hemoglobin 12.6 g/dL (13.0-17.5) Hematocrit 40.0 % (39.0-53.0) Mean Corpuscular Volume 74 fL (79-100) Mean Corpuscular Hemoglobin 23 pg (25-35) Mean Corpuscular Hemoglobin Concent 32 g/dL (31-37) Red Cell Distribution Width 17.0 % (11.5-14.5) Platelet Count 187 x10^3/uL (140-400) Neutrophils (%) (Auto) 69 % (31-73) Lymphocytes (%) (Auto) 17 % (24-48) Monocytes (%) (Auto) 12 % (0-9) Eosinophils (%) (Auto) 2 % (0-3) Basophils (%) (Auto) 0 % (0-3) Neutrophils # (Auto) 6.5 x10^3/uL (1.8-7.7) Lymphocytes # (Auto) 1.6 x10^3/uL (1.0-4.8) Monocytes # (Auto) 1.1 x10^3/uL (0.0-1.1) Eosinophils # (Auto) 0.2 x10^3/uL (0.0-0.7) Basophils # (Auto) 0.0 x10^3/uL (0.0-0.2) Sodium Level 141 mmol/L (136-145) Potassium Level 4.4 mmol/L (3.5-5.1) Chloride Level 103 mmol/L (98-107) Carbon Dioxide Level 34 mmol/L (21-32) Anion Gap 4 (6-14) Blood Urea Nitrogen 21 mg/dL (8-26) Creatinine 1.1 mg/dL (0.7-1.3) Estimated GFR (Cockcroft-Gault) 64.9 Glucose Level 118 mg/dL (70-99) Calcium Level 8.3 mg/dL (8.5-10.1) Magnesium Level 2.4 mg/dL (1.8-2.4) Ferritin 34 ng/mL (26-388) Vitamin B12 Level 811 pg/mL (247-911) 25-Hydroxy Vitamin D Total 44.4 ng/mL (30-100) Thyroid Stimulating Hormone (TSH) 0.650 uIU/mL (0.358-3.74) Physical Exam HEENT: Neck Supple W Full Motion Chest: Symmetric LUNGS: Clear to Auscultation Heart: irregularly irregular Abdomen: Soft N/T Extremities: No Calf Tenderness Neurology: alert, oriented, follow commands Assessment Assessment 1. Traumatic fall with T7 fracture: loss of balance, no associated syncope or presyncopal s/s and no concussion 2. Chronic AFIB: rate controlled and on eliquis 3. Hx of lacunar infarct 4. Hx of prostate CA 5. Morbid obesity 6. RUQ abd pain; defer to PCP 7. Hallucination: seeing daughter and in the room Recommendations 1. Awaiting SNU 2. Will need to establish cardiology care. Follow up in office with Dr. Morgan on September 29 1:30 PM 3. toprol 12.5 mg for rate control, Eliquis for stroke prevention will hold pending head CT result Justicifation of Admission Dx: Justifications for Admission: Justification of Admission Dx: Yes Fracture: Fracture CHANG MORGAN MD 08/13/20 1213: CARDIO Progress Notes Assessment Assessment Patient seen and examined 08/12/20. Agree with HAND SALTER's assessment and plan. Traumatic fall with T7 fracture Permanent atrial fib rate controlled Continue eliquis for stroke prophylaxis 2D echo showed normal LVF TERRELL BLACK APRN Aug 12, 2020 11:58 CHANG MORGAN MD Aug 13, 2020 12:13
--- NOTE | 2020-08-12 12:02 | NUR ---
Therapist in room and Patrick Larios APRN in room stated pt hallucinating and c/o RUQ pain. Ordered CT head. Will notify primary with up date. BP 129/87 and heart rate 79 and O2 sat 96% on 4l per n/c. Cont. monitor.
--- NOTE | 2020-08-12 12:24 | PDOC ---
[employer] PROGRESS NOTE Date of Service DOS: DATE: 08/12/20 TIME: 12:20 Chief Complaint Chief Complaint Assessment/Plan fall, acute neck pain MRI back shows acute t7 transferse fracture, Transversely oriented fracture involving the T7 vertebral body without significant retropulsion or height loss. posterior epidural hematoma resulting in mild mass effect on the thecal sac without compression of the cord. No cord signal alteration is identified. Afib, on eliquis, chronic diastolic CHF, restart Eliquis today obese, BMI 42 Acute dysphagia Hallucinations needs to wear brace when up except for when showering neurosurgery follow in 2 weeks with thoracic spine films PT May need to go to rehab/ SNF d/w rn Pending CT of the head and neck today The LV EF is about 55%. The LA is mildly enlarged. The aortic root and the proximal ascending aorta are mildly enlarged. Mild MR and mild TR noted. The PA systolic pressure is mildly elevated. STRESS TEST STRESS TEST FINDINGS: 03/04/2017 [facility] Pharmacological Stress Electrocardiogram: The patient's resting heart rate was 65 bpm and the resting blood pressure was 168/68. The patients peak stress heart rate was 91 bpm and the peak stress blood pressure was 158/87. His resting ECG demonstrated atrial fibrillation with a heart rate of 53, there are nonspecific T-wave changes noted. During pharmacologic stress he complained of shortness of breath. This resolved during the recovery phase. During the stress and the recovery phase he had occasional PVCs. He remained in atrial fib throughout. There is no ST segment changes noted. Conclusion: Pharmacologic stress ECG is negative for ischemia. 08-11 d/w rn 39 min pt exam, chart review, > 50% of time spent with exam, chart review, pt care coordination History of Present Illness History of Present Illness 08/12/2020 No major events overnight. Discussed with speech therapist same patient did have some phonation after sips of water and coughing spells after drinking water. Cardiology also noted the patient had some hallucinations. Currently we are pending a CT head of neck. 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 Patient was bawling after stating that he lost his recently to Covid. Patient's chart, labs, images were reviewed and discussed with RN no surg plans, to wear brace for 2 weeks and follow in neurosurg office pain is too severe for him to get up without assist, may need skilled The LV EF is about 55%. The LA is mildly enlarged. The aortic root and the proximal ascending aorta are mildly enlarged. Mild MR and mild TR noted. The PA systolic pressure is mildly elevated. STRESS TEST STRESS TEST FINDINGS: 03/04/2017 [facility] Pharmacological Stress Electrocardiogram: The patient's resting heart rate was 65 bpm and the resting blood pressure was 168/68. The patients peak stress heart rate was 91 bpm and the peak stress blood pressure was 158/87. His resting ECG demonstrated atrial fibrillation with a heart rate of 53, there are nonspecific T-wave changes noted. During pharmacologic stress he complained of shortness of breath. This resolved during the recovery phase. During the stress and the recovery phase he had occasional PVCs. He remained in atrial fib throughout. There is no ST segment changes noted. Conclusion: Pharmacologic stress ECG is negative for ischemia. Vitals/I&O Vitals/I&O: Vital Signs Date Time Temp Pulse Resp B/P (MAP) Pulse Ox O2 Delivery O2 Flow Rate FiO2 08/12/20 11:03 84 132/83 08/12/20 11:03 Room Air 08/12/20 11:00 98.7 17 100 4.0 98.7 I & O 08/11/20 08/11/20 08/12/20 15:00 23:00 07:00 Intake Total 520 ml 220 ml Output Total 100 ml Balance 520 ml 120 ml Physical Exam General: Alert, Oriented X3, Cooperative, No acute distress Heart: Other (irregularly irregular) Lungs: Clear Abdomen: Normal bowel sounds, Soft Extremities: No cyanosis, Other (1+ bilateral LE pitting edema) Skin: No breakdown, No significant lesion Labs Labs: Laboratory Tests Test 08/11/20 13:30 08/12/20 09:25 SARS-CoV-2 RNA (LORNA) Invalid (Negative) SARS-CoV-2 Antigen (Rapid) Negative (NEGATIVE) White Blood Count 9.4 x10^3/uL (4.0-11.0) Red Blood Count 5.42 x10^6/uL (4.30-5.70) Hemoglobin 12.6 g/dL (13.0-17.5) Hematocrit 40.0 % (39.0-53.0) Mean Corpuscular Volume 74 fL (79-100) Mean Corpuscular Hemoglobin 23 pg (25-35) Mean Corpuscular Hemoglobin Concent 32 g/dL (31-37) Red Cell Distribution Width 17.0 % (11.5-14.5) Platelet Count 187 x10^3/uL (140-400) Neutrophils (%) (Auto) 69 % (31-73) Lymphocytes (%) (Auto) 17 % (24-48) Monocytes (%) (Auto) 12 % (0-9) Eosinophils (%) (Auto) 2 % (0-3) Basophils (%) (Auto) 0 % (0-3) Neutrophils # (Auto) 6.5 x10^3/uL (1.8-7.7) Lymphocytes # (Auto) 1.6 x10^3/uL (1.0-4.8) Monocytes # (Auto) 1.1 x10^3/uL (0.0-1.1) Eosinophils # (Auto) 0.2 x10^3/uL (0.0-0.7) Basophils # (Auto) 0.0 x10^3/uL (0.0-0.2) Sodium Level 141 mmol/L (136-145) Potassium Level 4.4 mmol/L (3.5-5.1) Chloride Level 103 mmol/L (98-107) Carbon Dioxide Level 34 mmol/L (21-32) Anion Gap 4 (6-14) Blood Urea Nitrogen 21 mg/dL (8-26) Creatinine 1.1 mg/dL (0.7-1.3) Estimated GFR (Cockcroft-Gault) 64.9 Glucose Level 118 mg/dL (70-99) Calcium Level 8.3 mg/dL (8.5-10.1) Magnesium Level 2.4 mg/dL (1.8-2.4) Ferritin 34 ng/mL (26-388) Vitamin B12 Level 811 pg/mL (247-911) 25-Hydroxy Vitamin D Total 44.4 ng/mL (30-100) Thyroid Stimulating Hormone (TSH) 0.650 uIU/mL (0.358-3.74) Comment Review of Relevant I have reviewed the following items brooks (where applicable) has been applied. Medications: Current Medications Medications (Trade) Dose Ordered Sig/Alon Route PRN Reason Start Time Stop Time Status Last Admin Dose Admin Metoprolol Succinate (Toprol Xl) 12.5 mg DAILY PO 08/11/20 15:00 08/12/20 11:03 Apixaban (Eliquis) 5 mg BID PO 08/12/20 09:00 08/12/20 11:05 Justifications for Admission Other Justification OCHOA CHAUDHARI MD Aug 12, 2020 12:24
--- NOTE | 2020-08-12 12:27 | NUR ---
SW following. Discussed with RN, pt accepted at [facility] - not ready for discharge today per Dr. Rodriguez. Neck CT pending and Speech therapy ordered. [facility] are taking admissions over the weekend, so SW will add pt to the weekend discharge list. [facility] will continue to follow.
--- NOTE | 2020-08-12 12:30 | CARD ---
MR#: [id number] Date of Study: 08/11/2020 Ordering Physician: TERRELL BLACK, Referring Physician: TERRELL BLACK, Tech: Marisel Gladys, [facility] APPROVED REPORT EXAM: Two-dimensional and M-mode echocardiogram with Doppler and color Doppler. Other Information Quality : AverageHR: 78bpm INDICATION Atrial Fibrillation 2D DIMENSIONS Left Atrium(2D)5.1 (1.6-4.0cm)IVSd1.7 (0.7-1.1cm) Aortic Root(2D)3.5 (2.0-3.7cm)LVDd5.6 (3.9-5.9cm) LVOT Diameter2.1 (1.8-2.4cm)PWd1.4 (0.7-1.1cm) LVDs3.9 (2.5-4.0cm)FS (%) 30.2 % SV87.4 mlLVEF(%)56.9 (>50%) Aortic Valve AoV Peak Young.167.9cm/sAoV VTI26.9cm AO Peak GR.11.3mmHgLVOT VTI 17.96cm AO Mean GR.7mmHg Mitral Valve MV E Ifxvpkgm36.2cm/sMV DECEL [id number] TDI Lateral E' P. V6.56cm/sMedial E' P. V6.44cm/s E/Lateral E'11.6E/Medial E'11.8 Tricuspid Valve TR P. [id number]/sRAP [id number] TR Peak Gr.[id number] LEFT VENTRICLE The left ventricle is normal size. There is moderate concentric left ventricular hypertrophy. The lef t ventricular systolic function is normal. The Ejection Fraction is 55-60%. There is normal LV segmen willow wall motion. Diastology indeterminate due to atrial fibrillation. RIGHT VENTRICLE The right ventricle is normal size. There is normal right ventricular wall thickness. The right ventr icular systolic function is normal. ATRIA The left atrium is borderline dilated. The right atrium is mildly dilated. The interatrial septum is intact with no evidence for an atrial septal defect or patent foramen ovale as noted on 2-D or Dopple r imaging. AORTIC VALVE The aortic valve is normal in structure and function. Doppler and Color Flow revealed no significant aortic regurgitation. There is no significant aortic valvular stenosis. Calculated aortic valve area is 2.42 cm2 with maximum pressure gradient of 11 mmHg and mean pressure gradient of 7 mmHg. MITRAL VALVE The mitral valve is normal in structure and function. There is no evidence of mitral valve prolapse. There is no mitral valve stenosis. Doppler and Color Flow revealed no mitral valve regurgitation note d. TRICUSPID VALVE The tricuspid valve is normal in structure and function. Doppler and Color Flow revealed trace tricus pid regurgitation with an estimated PAP of 39 mmHg. There is no tricuspid valve stenosis. PULMONIC VALVE The pulmonic valve is not well visualized. Doppler and Color Flow revealed trace pulmonic valvular re gurgitation. GREAT VESSELS The aortic root is normal in size. The IVC was not visualized. PERICARDIAL EFFUSION There is no evidence of significant pericardial effusion. Critical Notification Critical Value: No <Conclusion> The left ventricular systolic function is normal. The Ejection Fraction is 55-60%. There is normal LV segmental wall motion. Trace tricuspid regurgitation with an estimated PAP of 39 mmHg. There is no evidence of significant pericardial effusion. Signed by : Tank Sepulveda, Electronically Approved : 08/12/2020 12:29:45
--- NOTE | 2020-08-12 13:09 | RAD ---
CT brain without contrast, CT cervical spine without contrast. HISTORY: Hallucinations, recent fall CT brain CT scan the brain was done without contrast. There is mild mucosal thickening in the sinuses. A skull fracture is not identified. There is no intracranial hemorrhage or subdural hematoma. Ventricles are normal in size. There is no mass effect or shift of the midline. There is mild motion artifact. Ther e is decreased density in the white matter specially in the frontal lobes suggesting chronic microvas cular changes. An old white matter infarct on the left is possible. Pattern is unchanged from the rec ent study from [facility] from August 08. IMPRESSION: 1. No intracranial hemorrhage or acute finding noted intracranially. End impression CT cervical spine Axial CT images were obtained through the cervical spine. Sagittal and coronal reconstructed images w ere reviewed. An acute C-spine fracture is not identified. C-spine is in normal alignment. There is m ild facet arthritis at several levels. There is degenerative disc disease at C5-6 with spurring. Ther e is uncovertebral spurring on the vertebral bodies with foraminal stenosis at C5-C6 bilaterally, C3- 4 and C4-5 on the right. IMPRESSION: 1. Degenerative changes in the cervical spine. 2. No acute C-spine fracture. PQRS Compliance Statement: One or more of the following individualized dose reduction techniques were utilized for this examinat ion: 1. Automated exposure control 2. Adjustment of the mA and/or kV according to patient size 3. Use of iterative reconstruction technique Electronically signed by: Maldonado Stiles MD (08/12/2020 1:07 PM) [facility]
[2020-08-12 15:00] VITALS: BP 141/64
--- NOTE | 2020-08-12 15:00 | NUR ---
Ambulated to bathroom with assist x'2/ O2 /gait belt and TLSO brace. Does get SOB on exertion. Then ambulated to chair. Tolerated fairly well. Still c/o chest hurting when coughing or any strenuous activity for example getting up and down chair or bed. Family at bedside. Cont. monitor.
--- NOTE | 2020-08-12 15:05 | NUR ---
+ COVID results called from Lab. 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 Pt will be transfered to room #670.
--- NOTE | 2020-08-12 16:20 | NUR ---
Pt transferred to room 6[facility]. Family informed.
[2020-08-12] MEDS: CHOLECALCIFEROL (VITAMIN D3) 1,000 UNIT TABLET PO SCH (18:25)
[2020-08-12] MEDS: DEXAMETHASONE 4 MG TABLET PO SCH (18:25)
[2020-08-12] MEDS: ASCORBIC ACID 500 MG TABLET PO SCH (18:26)
[2020-08-12] MEDS: ZINC SULFATE 220 MG CAPSULE. PO SCH (18:27)
[2020-08-12] MEDS: IV NORMAL SALINE 1000ML BAG 1,000 ML IV SCH (18:27)
[2020-08-12 19:00] VITALS: BP 148/84
[2020-08-12] MEDS: PATCH REMOVAL. MC SCH (20:21)
[2020-08-12 23:04] VITALS: BP 127/82
[2020-08-13] MEDS: ALBUTEROL SULFATE 8GM INHALER. INH PRN ×2 (02:51→03:17)
[2020-08-13 03:07] VITALS: BP 133/97
[2020-08-13 07:00] VITALS: BP 122/101
[2020-08-13] MEDS: CHOLECALCIFEROL (VITAMIN D3) 1,000 UNIT TABLET PO SCH (07:38)
[2020-08-13] MEDS: GABAPENTIN 300 MG CAPSULE. PO SCH ×3 (07:38→19:59)
[2020-08-13] MEDS: ASCORBIC ACID 500 MG TABLET PO SCH (07:38)
[2020-08-13] MEDS: POLYETHYLENE GLYCOL 3350 17 GM PACKET. PO SCH ×2 (07:39→08:09)
[2020-08-13] MEDS: DEXAMETHASONE 4 MG TABLET PO SCH (07:39)
[2020-08-13] MEDS: ZINC SULFATE 220 MG CAPSULE. PO SCH (07:39)
[2020-08-13] MEDS: DOCUSATE SODIUM 100 MG CAPSULE. PO SCH ×2 (07:39→08:08)
[2020-08-13] MEDS: APIXABAN 5 MG TABLET. PO SCH ×2 (07:39→19:58)
[2020-08-13] MEDS: LIDOCAINE (700MG/PATCH) PATCH. TD SCH ×2 (07:40→08:09)
[2020-08-13] MEDS: METOPROLOL SUCC 24HR ER 25 MG TAB.ER.24H. PO SCH (08:10)
--- NOTE | 2020-08-13 09:15 | PDOC ---
PROGRESS NOTES Date of Service DATE: 08/13/20 TIME: 09:12 Subjective Subjective He was tested positive for Covid-19 and was transferred to [address] [place] [address]. Objective Objective Vital Signs Date Time Temp Pulse Resp B/P (MAP) Pulse Ox O2 Delivery O2 Flow Rate FiO2 08/13/20 08:10 82 122/101 08/13/20 07:00 98.3 18 95 Room Air 98.3 08/12/20 20:54 4.0 Intake and Output 08/13/20 06:59 Intake Total 720 ml Balance 720 ml Intake Oral 720 ml # Voids 3 # Bowel Movements 2 Physical Exam Physical Exam He continues with SOB and requires 2 person assistance for mobility and also requires assistance for donning and doffing TLSO. Plan Plan of Care To continue present rehab efforts as tolerated and to SNF when medically stable. Comment Review of Relevant I have reviewed the following items brooks (where applicable) has been applied. Labs Laboratory Tests Test 08/11/20 10:50 08/11/20 13:30 08/12/20 09:25 White Blood Count 8.4 x10^3/uL (4.0-11.0) 9.4 x10^3/uL (4.0-11.0) Red Blood Count 5.17 x10^6/uL (4.30-5.70) 5.42 x10^6/uL (4.30-5.70) Hemoglobin 11.9 g/dL (13.0-17.5) 12.6 g/dL (13.0-17.5) Hematocrit 38.2 % (39.0-53.0) 40.0 % (39.0-53.0) Mean Corpuscular Volume 74 fL (79-100) 74 fL (79-100) Mean Corpuscular Hemoglobin 23 pg (25-35) 23 pg (25-35) Mean Corpuscular Hemoglobin Concent 31 g/dL (31-37) 32 g/dL (31-37) Red Cell Distribution Width 16.5 % (11.5-14.5) 17.0 % (11.5-14.5) Platelet Count 169 x10^3/uL (140-400) 187 x10^3/uL (140-400) Neutrophils (%) (Auto) 74 % (31-73) 69 % (31-73) Lymphocytes (%) (Auto) 11 % (24-48) 17 % (24-48) Monocytes (%) (Auto) 13 % (0-9) 12 % (0-9) Eosinophils (%) (Auto) 2 % (0-3) 2 % (0-3) Basophils (%) (Auto) 0 % (0-3) 0 % (0-3) Neutrophils # (Auto) 6.3 x10^3/uL (1.8-7.7) 6.5 x10^3/uL (1.8-7.7) Lymphocytes # (Auto) 1.0 x10^3/uL (1.0-4.8) 1.6 x10^3/uL (1.0-4.8) Monocytes # (Auto) 1.1 x10^3/uL (0.0-1.1) 1.1 x10^3/uL (0.0-1.1) Eosinophils # (Auto) 0.1 x10^3/uL (0.0-0.7) 0.2 x10^3/uL (0.0-0.7) Basophils # (Auto) 0.0 x10^3/uL (0.0-0.2) 0.0 x10^3/uL (0.0-0.2) Sodium Level 142 mmol/L (136-145) 141 mmol/L (136-145) Potassium Level 4.3 mmol/L (3.5-5.1) 4.4 mmol/L (3.5-5.1) Chloride Level 104 mmol/L (98-107) 103 mmol/L (98-107) Carbon Dioxide Level 29 mmol/L (21-32) 34 mmol/L (21-32) Anion Gap 9 (6-14) 4 (6-14) Blood Urea Nitrogen 17 mg/dL (8-26) 21 mg/dL (8-26) Creatinine 1.1 mg/dL (0.7-1.3) 1.1 mg/dL (0.7-1.3) Estimated GFR (Cockcroft-Gault) 64.9 64.9 BUN/Creatinine Ratio 15 (6-20) Glucose Level 117 mg/dL (70-99) 118 mg/dL (70-99) Calcium Level 8.3 mg/dL (8.5-10.1) 8.3 mg/dL (8.5-10.1) Total Bilirubin 1.3 mg/dL (0.2-1.0) Aspartate Amino Transf (AST/SGOT) 18 U/L (15-37) Alanine Aminotransferase (ALT/SGPT) 21 U/L (16-63) Alkaline Phosphatase 101 U/L (46-116) Total Protein 6.6 g/dL (6.4-8.2) Albumin 3.3 g/dL (3.4-5.0) Albumin/Globulin Ratio 1.0 (1.0-1.7) Triglycerides Level 71 mg/dL (0-150) Cholesterol Level 145 mg/dL (0-200) LDL Cholesterol, Calculated 78 mg/dL (0-100) VLDL Cholesterol, Calculated 14 mg/dL (0-40) Non-HDL Cholesterol Calculated 92 mg/dL (0-129) HDL Cholesterol 53 mg/dL (40-60) Cholesterol/HDL Ratio 2.7 Thyroid Stimulating Hormone (TSH) 0.749 uIU/mL (0.358-3.74) 0.650 uIU/mL (0.358-3.74) Coronavirus (COVID-19)(PCR) Positive (NEGATIVE) SARS-CoV-2 RNA (LORNA) Invalid (Negative) SARS-CoV-2 Antigen (Rapid) Negative (NEGATIVE) Magnesium Level 2.4 mg/dL (1.8-2.4) Ferritin 34 ng/mL (26-388) Vitamin B12 Level 811 pg/mL (247-911) 25-Hydroxy Vitamin D Total 44.4 ng/mL (30-100) Laboratory Tests Test 08/12/20 09:25 White Blood Count 9.4 x10^3/uL (4.0-11.0) Red Blood Count 5.42 x10^6/uL (4.30-5.70) Hemoglobin 12.6 g/dL (13.0-17.5) Hematocrit 40.0 % (39.0-53.0) Mean Corpuscular Volume 74 fL (79-100) Mean Corpuscular Hemoglobin 23 pg (25-35) Mean Corpuscular Hemoglobin Concent 32 g/dL (31-37) Red Cell Distribution Width 17.0 % (11.5-14.5) Platelet Count 187 x10^3/uL (140-400) Neutrophils (%) (Auto) 69 % (31-73) Lymphocytes (%) (Auto) 17 % (24-48) Monocytes (%) (Auto) 12 % (0-9) Eosinophils (%) (Auto) 2 % (0-3) Basophils (%) (Auto) 0 % (0-3) Neutrophils # (Auto) 6.5 x10^3/uL (1.8-7.7) Lymphocytes # (Auto) 1.6 x10^3/uL (1.0-4.8) Monocytes # (Auto) 1.1 x10^3/uL (0.0-1.1) Eosinophils # (Auto) 0.2 x10^3/uL (0.0-0.7) Basophils # (Auto) 0.0 x10^3/uL (0.0-0.2) Sodium Level 141 mmol/L (136-145) Potassium Level 4.4 mmol/L (3.5-5.1) Chloride Level 103 mmol/L (98-107) Carbon Dioxide Level 34 mmol/L (21-32) Anion Gap 4 (6-14) Blood Urea Nitrogen 21 mg/dL (8-26) Creatinine 1.1 mg/dL (0.7-1.3) Estimated GFR (Cockcroft-Gault) 64.9 Glucose Level 118 mg/dL (70-99) Calcium Level 8.3 mg/dL (8.5-10.1) Magnesium Level 2.4 mg/dL (1.8-2.4) Ferritin 34 ng/mL (26-388) Vitamin B12 Level 811 pg/mL (247-911) 25-Hydroxy Vitamin D Total 44.4 ng/mL (30-100) Thyroid Stimulating Hormone (TSH) 0.650 uIU/mL (0.358-3.74) Medications Current Medications Hydromorphone HCl (Dilaudid) 2 mg PRN Q2HR PRN IVP PAIN Last administered on 08/12/20at 20:21; Start 08/08/20 at 21:45 Acetaminophen/ Hydrocodone Bitart (Lortab 10/325) 1 tab PRN Q6HRS PRN PO PAIN Last administered on 08/12/20at 11:03; Start 08/08/20 at 21:45 Sodium Chloride 1,000 ml @ 45 mls/hr [id number] IV Last administered on 08/12/20at 18:27; Start 08/08/20 at 21:45 Gabapentin (Neurontin) 600 mg TID PO Last administered on 08/13/20at 07:38; Start 08/08/20 at 22:00 Lidocaine (Lidoderm) 2 patch DAILY TD ; Start 08/09/20 at 10:30 Miscellaneous (Lidoderm Patch Removal) 1 ea QHS MC Last administered on 08/12/20at 20:21; Start 08/09/20 at 21:00 Polyethylene Glycol (miraLAX PACKET) 17 gm 1X ONCE PO ; Start 08/10/20 at 13:00; Stop 08/10/20 at 13:07; Status DC Polyethylene Glycol (miraLAX PACKET) 17 gm DAILY PO ; Start 08/11/20 at 09:00 Docusate Sodium (Colace) 100 mg DAILY PO Last administered on 08/12/20at 11:02; Start 08/11/20 at 09:00 Albuterol Sulfate (Ventolin Neb Soln) 2.5 mg PRN Q4HRS PRN NEB SHORTNESS OF BREATH Last administered on 08/12/20at 03:10; Start 08/11/20 at 03:15; Stop 08/13/20 at 02:47; Status DC Lorazepam (Ativan Inj) 0.5 mg PRN Q4HRS PRN IVP ANXIETY / AGITATION Last administered on 08/12/20at 20:20; Start 08/11/20 at 03:15 Metoprolol Succinate (Toprol Xl) 12.5 mg DAILY PO Last administered on 08/13/20at 08:10; Start 08/11/20 at 15:00 Apixaban (Eliquis) 5 mg BID PO Last administered on 08/13/20at 07:39; Start 08/12/20 at 09:00 Dexamethasone (Decadron) 6 mg [id number] PO Last administered on 08/13/20at 07:39; Start 08/12/20 at 17:30 Ascorbic Acid (Vitamin C) 500 mg DAILY PO Last administered on 08/13/20at 07:38; Start 08/12/20 at 17:30 Vitamin D (Vitamin D3) 1,000 unit DAILY PO Last administered on 08/13/20at 07:38; Start 08/12/20 at 17:30 Zinc Sulfate (Orazinc) 220 mg DAILY PO Last administered on 08/13/20at 07:39; Start 08/12/20 at 17:30 Albuterol Sulfate (Ventolin Hfa) 2 puff PRN Q4HRS PRN INH SHORTNESS OF BREATH Last administered on 08/13/20at 02:51; Start 08/13/20 at 03:00 Active Scripts Active Reported Eliquis (Apixaban) 5 Mg Tablet 5 Mg PO BID Neurontin (Gabapentin) 600 Mg Tablet 600 Mg PO TID Vitals/I & O Vital Sign - Last 24 Hours 08/12/20 08/12/20 08/12/20 08/12/20 11:00 11:03 11:03 12:00 Temp 98.7 98.7 Pulse 63 84 Resp 17 B/P (MAP) 110/76 (87) 132/83 Pulse Ox 100 O2 Delivery Nasal Cannula Room Air Room Air O2 Flow Rate 4.0 08/12/20 08/12/20 08/12/20 08/12/20 15:00 19:00 20:00 20:21 Temp 98.4 98.4 Pulse 74 76 Resp 18 20 22 B/P (MAP) 141/64 (89) 148/84 (105) Pulse Ox 99 94 99 O2 Delivery Nasal Cannula Room Air Nasal Cannula Nasal Cannula O2 Flow Rate 4.0 4.0 4.0 08/12/20 08/12/20 08/13/20 08/13/20 20:54 23:04 03:07 07:00 Temp 98.8 97.4 98.3 98.8 97.4 98.3 Pulse 86 89 82 Resp 18 20 20 18 B/P (MAP) 127/82 (97) 133/97 (109) 122/101 (108) Pulse Ox 99 92 95 95 O2 Delivery Nasal Cannula Room Air Room Air Room Air O2 Flow Rate 4.0 08/13/20 08:10 Pulse 82 B/P (MAP) 122/101 Intake and Output 08/12/20 08/12/20 08/13/20 14:59 22:59 06:59 Intake Total 240 ml 480 ml Balance 240 ml 480 ml Justifications for Admission Other Justification EMANUEL KUHN MD Aug 13, 2020 09:15
--- NOTE | 2020-08-13 09:57 | PDOC ---
PULMONARY PROGRESS NOTES DATE: 08/13/20 TIME: 09:56 Subjective on RA sob better, has occ cough Vitals Vital Signs Date Time Temp Pulse Resp B/P (MAP) Pulse Ox O2 Delivery O2 Flow Rate FiO2 08/13/20 08:10 82 122/101 08/13/20 07:00 98.3 18 95 Room Air 98.3 08/12/20 20:54 4.0 ROS: No Nausea, No Chest Pain, No Abdominal Pain General: Alert, Oriented X4 Lungs: Other (no accessory muscle use ) Cardiovascular: S1 Abdomen: Other (obese) Neuro Exam: Alert Extremities: No Edema Skin: Other (no rash) Labs Laboratory Tests Test 08/11/20 10:50 08/11/20 13:30 08/12/20 09:25 White Blood Count 8.4 x10^3/uL (4.0-11.0) 9.4 x10^3/uL (4.0-11.0) Red Blood Count 5.17 x10^6/uL (4.30-5.70) 5.42 x10^6/uL (4.30-5.70) Hemoglobin 11.9 g/dL (13.0-17.5) 12.6 g/dL (13.0-17.5) Hematocrit 38.2 % (39.0-53.0) 40.0 % (39.0-53.0) Mean Corpuscular Volume 74 fL (79-100) 74 fL (79-100) Mean Corpuscular Hemoglobin 23 pg (25-35) 23 pg (25-35) Mean Corpuscular Hemoglobin Concent 31 g/dL (31-37) 32 g/dL (31-37) Red Cell Distribution Width 16.5 % (11.5-14.5) 17.0 % (11.5-14.5) Platelet Count 169 x10^3/uL (140-400) 187 x10^3/uL (140-400) Neutrophils (%) (Auto) 74 % (31-73) 69 % (31-73) Lymphocytes (%) (Auto) 11 % (24-48) 17 % (24-48) Monocytes (%) (Auto) 13 % (0-9) 12 % (0-9) Eosinophils (%) (Auto) 2 % (0-3) 2 % (0-3) Basophils (%) (Auto) 0 % (0-3) 0 % (0-3) Neutrophils # (Auto) 6.3 x10^3/uL (1.8-7.7) 6.5 x10^3/uL (1.8-7.7) Lymphocytes # (Auto) 1.0 x10^3/uL (1.0-4.8) 1.6 x10^3/uL (1.0-4.8) Monocytes # (Auto) 1.1 x10^3/uL (0.0-1.1) 1.1 x10^3/uL (0.0-1.1) Eosinophils # (Auto) 0.1 x10^3/uL (0.0-0.7) 0.2 x10^3/uL (0.0-0.7) Basophils # (Auto) 0.0 x10^3/uL (0.0-0.2) 0.0 x10^3/uL (0.0-0.2) Sodium Level 142 mmol/L (136-145) 141 mmol/L (136-145) Potassium Level 4.3 mmol/L (3.5-5.1) 4.4 mmol/L (3.5-5.1) Chloride Level 104 mmol/L (98-107) 103 mmol/L (98-107) Carbon Dioxide Level 29 mmol/L (21-32) 34 mmol/L (21-32) Anion Gap 9 (6-14) 4 (6-14) Blood Urea Nitrogen 17 mg/dL (8-26) 21 mg/dL (8-26) Creatinine 1.1 mg/dL (0.7-1.3) 1.1 mg/dL (0.7-1.3) Estimated GFR (Cockcroft-Gault) 64.9 64.9 BUN/Creatinine Ratio 15 (6-20) Glucose Level 117 mg/dL (70-99) 118 mg/dL (70-99) Calcium Level 8.3 mg/dL (8.5-10.1) 8.3 mg/dL (8.5-10.1) Total Bilirubin 1.3 mg/dL (0.2-1.0) Aspartate Amino Transf (AST/SGOT) 18 U/L (15-37) Alanine Aminotransferase (ALT/SGPT) 21 U/L (16-63) Alkaline Phosphatase 101 U/L (46-116) Total Protein 6.6 g/dL (6.4-8.2) Albumin 3.3 g/dL (3.4-5.0) Albumin/Globulin Ratio 1.0 (1.0-1.7) Triglycerides Level 71 mg/dL (0-150) Cholesterol Level 145 mg/dL (0-200) LDL Cholesterol, Calculated 78 mg/dL (0-100) VLDL Cholesterol, Calculated 14 mg/dL (0-40) Non-HDL Cholesterol Calculated 92 mg/dL (0-129) HDL Cholesterol 53 mg/dL (40-60) Cholesterol/HDL Ratio 2.7 Thyroid Stimulating Hormone (TSH) 0.749 uIU/mL (0.358-3.74) 0.650 uIU/mL (0.358-3.74) Coronavirus (COVID-19)(PCR) Positive (NEGATIVE) SARS-CoV-2 RNA (LORNA) Invalid (Negative) SARS-CoV-2 Antigen (Rapid) Negative (NEGATIVE) Magnesium Level 2.4 mg/dL (1.8-2.4) Ferritin 34 ng/mL (26-388) Vitamin B12 Level 811 pg/mL (247-911) 25-Hydroxy Vitamin D Total 44.4 ng/mL (30-100) Medications Active Scripts Medications Dose Route/Sig Max Daily Dose Days Date Category Eliquis (Apixaban) 5 Mg Tablet 10 Mg PO BID 08/09/20 Reported Neurontin (Gabapentin) 600 Mg Tablet 600 Mg PO TID 08/08/20 Reported Impression . IMPRESSION: 1. Dyspnea and wheezing secondary to nonspecific acute bronchitis and restriction from current therapy with a brace that is restricting the patient from taking a deep breath. 2. Accidental fall. 3. T7 vertebral body fracture. 4. Chronic atrial fibrillation. 5. Prostate cancer. 6. COVID-19 + Plan . Updated 08/13/20 titrate fio2 to keep sat 90% COVID positive-- isolation precautions IS to use multiple time an hour cont dexa for total of 10 days, Vit. C, D and zinc on eliquis Follow neurosurgery recs-- DVT/GI PPX D/W RN pt PLAN: 08/11/20 1. Aggressive pulmonary hygiene with incentive spirometry. 2. Oxygen supplementation. 3. P.r.n. nebulized treatments. BERRY MCALLISTER MD Aug 13, 2020 09:57
[2020-08-13 11:00] VITALS: BP 151/94
[2020-08-13] MEDS: ANTI-COAG MONITOR BY PHARMACY. MC PRN (12:30)
--- NOTE | 2020-08-13 13:34 | PDOC ---
GENERAL General: Patient examined chart reviewed today's hospital day 6 for this patient with fa ll sustaining a T7 compression fracture, chronic diastolic congestive heart failure, atrial fibrillation and now acute hypoxic respiratory failure necessitating 3 L of oxygen continuously to keep his saturation up over 90%. He was diagnosed with COVID-19 here. He tells me that he was feeling fine at home until he fell just prior to admission. He had his Moderna vaccine completed in March and has not had any sick contacts. He lives alone. He has not been masking in the stores or other venues. He is not sure where he contracted the Covid. He tested +3 days ago as he was getting ready for rehab here. He is asking me about when we think he would be able to discharge home. He has not been up and moving about. I spoke to nursing about his case and she reaffirms that he has not done much though his pain is improving. We will continue current management otherwise. Appreciate subspecialty support. Time spent today is 30 minutes with greater than 50% in counseling and coordination of care most of which in discussion with patient. Problems: (1) Thoracic spine fracture (2) Acute respiratory failure with hypoxia (3) COVID-19 VITAL SIGNS Vital Signs/I&O: Vital Signs Date Time Temp Pulse Resp B/P (MAP) Pulse Ox O2 Delivery O2 Flow Rate FiO2 08/13/20 11:00 80 18 151/94 (113) 92 Room Air 2.0 08/13/20 07:00 98.3 98.3 I & O 08/12/20 08/12/20 08/13/20 15:00 23:00 07:00 Intake Total 240 ml 480 ml Balance 240 ml 480 ml In general the patient is pleasant alert and oriented x3 no acute distress HEENT exam is unremarkable Chest is clear to auscultation Heart S1-S2 normal regular rate and rhythm no murmurs or gallops are noted Abdomen soft nontender nondistended no masses organomegaly noted Extremity exam is unremarkable for acute abnormality ALLERGIES Allergies: Allergies Coded Allergies Type Severity Reaction Last Updated Verified No Known Drug Allergies 08/08/20 No MEDS Medications: Current Medications Medications (Trade) Dose Ordered Sig/Alon Start Time Stop Time Status Last Admin Dose Admin Acetaminophen/ Hydrocodone Bitart (Lortab 10/325) 1 tab PRN Q6HRS PRN 08/08/20 21:45 08/12/20 11:03 Albuterol Sulfate (Ventolin Hfa) 2 puff PRN Q4HRS PRN 08/13/20 03:00 08/13/20 02:51 Albuterol Sulfate (Ventolin Neb Soln) 2.5 mg PRN Q4HRS PRN 08/11/20 03:15 08/13/20 02:47 DC 08/12/20 03:10 Apixaban (Eliquis) 5 mg BID 08/12/20 09:00 08/13/20 07:39 Ascorbic Acid (Vitamin C) 500 mg DAILY 08/12/20 17:30 08/13/20 07:38 Dexamethasone (Decadron) 6 mg [id number] 08/12/20 17:30 08/13/20 07:39 Docusate Sodium (Colace) 100 mg DAILY 08/11/20 09:00 08/12/20 11:02 Gabapentin (Neurontin) 600 mg TID 08/08/20 22:00 08/13/20 07:38 Hydromorphone HCl (Dilaudid) 2 mg PRN Q2HR PRN 08/08/20 21:45 08/12/20 20:21 Info (Anti-Coagulation Monitoring By Pharmacy) 1 each PRN DAILY PRN 08/13/20 12:30 08/13/20 12:30 Lidocaine (Lidoderm) 2 patch DAILY 08/09/20 10:30 Lorazepam (Ativan Inj) 0.5 mg PRN Q4HRS PRN 08/11/20 03:15 08/12/20 20:20 Metoprolol Succinate (Toprol Xl) 12.5 mg DAILY 08/11/20 15:00 08/13/20 08:10 Miscellaneous (Lidoderm Patch Removal) 1 ea QHS 08/09/20 21:00 08/12/20 20:21 Polyethylene Glycol (miraLAX PACKET) 17 gm DAILY 08/11/20 09:00 Sodium Chloride 1,000 ml @ 45 mls/hr [id number] 08/08/20 21:45 08/12/20 18:27 Vitamin D (Vitamin D3) 1,000 unit DAILY 08/12/20 17:30 08/13/20 07:38 Zinc Sulfate (Orazinc) 220 mg DAILY 08/12/20 17:30 08/13/20 07:39 Current Medications Medications (Trade) Dose Ordered Sig/Alon Route PRN Reason Start Time Stop Time Status Last Admin Dose Admin Dexamethasone (Decadron) 6 mg [id number] PO 08/12/20 17:30 08/13/20 07:39 Ascorbic Acid (Vitamin C) 500 mg DAILY PO 08/12/20 17:30 08/13/20 07:38 Vitamin D (Vitamin D3) 1,000 unit DAILY PO 08/12/20 17:30 08/13/20 07:38 Zinc Sulfate (Orazinc) 220 mg DAILY PO 08/12/20 17:30 08/13/20 07:39 Albuterol Sulfate (Ventolin Hfa) 2 puff PRN Q4HRS PRN INH SHORTNESS OF BREATH 08/13/20 03:00 08/13/20 02:51 Info (Anti-Coagulation Monitoring By Pharmacy) 1 each PRN DAILY PRN MC PER PROTOCOL 08/13/20 12:30 08/13/20 12:30 ASSESSMENT & PLAN A&P Plan as noted above This note was created using [employer] and may have omissions and/or errors due to the nature of real-time voice hand baseball sewer. Justifications for Admission Other Justification AMEE VALENTINE MD Aug 13, 2020 13:34
[2020-08-13] MEDS: IV NORMAL SALINE 1000ML BAG 1,000 ML IV SCH ×2 (14:49→17:08)
[2020-08-13 14:59] VITALS: BP 141/95
[2020-08-13 19:00] VITALS: BP 146/79
[2020-08-13] MEDS: HYDROmorphone 2 MG/ML VIAL IVP PRN (19:27)
[2020-08-13] MEDS: PATCH REMOVAL. MC SCH (19:59)
[2020-08-13] MEDS: HYDROcodone/APAP 10/325 1 TAB TABLET PO PRN (20:01)
[2020-08-13 23:09] VITALS: BP 173/97
[2020-08-14] VITALS (7 sets, daily range): BP systolic 141–184; BP diastolic 80–100
[2020-08-14 07:18] LABS: BASO % 1 % (0-3); EOS # 0.2 x10^3/uL (0.0-0.7); EOS % 4 % (0-3); HEMATOCRIT 35.8 % (39.0-53.0); HEMOGLOBIN 11.4 g/dL (13.0-17.5); LYMPH # 1.6 x10^3/uL (1.0-4.8); LYMPH % 26 % (24-48); MEAN CORPUSCULAR HEMOGLOBIN 23 pg (25-35); MEAN CORPUSCULAR HGB CONC 32 g/dL (31-37); MEAN CORPUSCULAR VOLUME 73 fL (79-100); MONO # 0.6 x10^3/uL (0.0-1.1); MONO % 10 % (0-9); NEUT # 3.5 x10^3/uL (1.8-7.7); NEUT % 59 % (31-73); PLATELET COUNT 180 x10^3/uL (140-400); RED BLOOD COUNT 4.91 x10^6/uL (4.30-5.70); RED CELL DISTRIBUTION WIDTH 16.8 % (11.5-14.5)
[2020-08-14 07:34] LABS: ALBUMIN 2.7 g/dL (3.4-5.0); ALBUMIN/GLOBULIN RATIO 0.9 (1.0-1.7); CALCIUM 8.2 mg/dL (8.5-10.1); GFR 72.5; POTASSIUM 3.5 mmol/L (3.5-5.1); TOTAL BILIRUBIN 1.2 mg/dL (0.2-1.0); TOTAL PROTEIN 5.8 g/dL (6.4-8.2)
[2020-08-14] MEDS: LIDOCAINE (700MG/PATCH) PATCH. TD SCH (09:00)
[2020-08-14] MEDS: POLYETHYLENE GLYCOL 3350 17 GM PACKET. PO SCH (09:00)
[2020-08-14] MEDS: DOCUSATE SODIUM 100 MG CAPSULE. PO SCH (09:00)
[2020-08-14] MEDS: CHOLECALCIFEROL (VITAMIN D3) 1,000 UNIT TABLET PO SCH (09:13)
[2020-08-14] MEDS: ZINC SULFATE 220 MG CAPSULE. PO SCH (09:13)
[2020-08-14] MEDS: GABAPENTIN 300 MG CAPSULE. PO SCH ×3 (09:13→21:16)
[2020-08-14] MEDS: METOPROLOL SUCC 24HR ER 25 MG TAB.ER.24H. PO SCH (09:13)
[2020-08-14] MEDS: APIXABAN 5 MG TABLET. PO SCH ×2 (09:13→21:16)
[2020-08-14] MEDS: ASCORBIC ACID 500 MG TABLET PO SCH (09:14)
[2020-08-14] MEDS: DEXAMETHASONE 4 MG TABLET PO SCH (09:15)
--- NOTE | 2020-08-14 11:23 | PDOC ---
GENERAL General: Patient examined chart reviewed tells me he is feeling a little weaker today. He is hoping to get to rehab as soon as possible to build back his strength. He knows that he is not to get up moving alone in the room but wishes that he could walk his room more often. He is more dyspneic today but is off oxygen at the time of my visit. The proair inhalers seem to be helping. We appreciate subspecialty support. Planning on transfer to rehab as soon as we can in light of his Covid 19 diagnosis found on screening in preparation for rehab discharge on August 11. Problems: (1) COVID-19 (2) Acute respiratory failure with hypoxia (3) Thoracic spine fracture VITAL SIGNS Vital Signs/I&O: Vital Signs Date Time Temp Pulse Resp B/P (MAP) Pulse Ox O2 Delivery O2 Flow Rate FiO2 08/14/20 11:14 98.0 65 20 165/90 (115) 99 Room Air 98.0 08/13/20 11:00 2.0 I & O 08/13/20 08/13/20 08/14/20 15:00 23:00 07:00 Intake Total 550 ml 1340 ml Output Total 500 ml 400 ml 275 ml Balance 50 ml 940 ml -275 ml In general patient is laying in bed resting comfortably off oxygen at the time of my visit tells me he feels more weak today HEENT exam is unremarkable for acute abnormality Chest bilateral equal air entry though diminished throughout wheezing at the bilateral bases Heart S1-S2 normal regular rate and rhythm no murmurs or gallops are noted Abdomen obese soft nontender nondistended no masses organomegaly noted Extremity exam is unremarkable for acute abnormality ALLERGIES Allergies: Allergies Coded Allergies Type Severity Reaction Last Updated Verified No Known Drug Allergies 08/08/20 No MEDS Medications: Current Medications Medications (Trade) Dose Ordered Sig/Alon Start Time Stop Time Status Last Admin Dose Admin Acetaminophen/ Hydrocodone Bitart (Lortab 10/325) 1 tab PRN Q6HRS PRN 08/08/20 21:45 08/13/20 20:01 Albuterol Sulfate (Ventolin Hfa) 2 puff PRN Q4HRS PRN 08/13/20 03:00 08/13/20 02:51 Albuterol Sulfate (Ventolin Neb Soln) 2.5 mg PRN Q4HRS PRN 08/11/20 03:15 08/13/20 02:47 DC 08/12/20 03:10 Apixaban (Eliquis) 5 mg BID 08/12/20 09:00 08/14/20 09:13 Ascorbic Acid (Vitamin C) 500 mg DAILY 08/12/20 17:30 08/14/20 09:14 Dexamethasone (Decadron) 6 mg [id number] 08/12/20 17:30 08/14/20 09:15 Docusate Sodium (Colace) 100 mg DAILY 08/11/20 09:00 08/12/20 11:02 Gabapentin (Neurontin) 600 mg TID 08/08/20 22:00 08/14/20 09:13 Hydromorphone HCl (Dilaudid) 2 mg PRN Q2HR PRN 08/08/20 21:45 08/13/20 19:27 Info (Anti-Coagulation Monitoring By Pharmacy) 1 each PRN DAILY PRN 08/13/20 12:30 08/13/20 12:30 Lidocaine (Lidoderm) 2 patch DAILY 08/09/20 10:30 Lorazepam (Ativan Inj) 0.5 mg PRN Q4HRS PRN 08/11/20 03:15 08/12/20 20:20 Metoprolol Succinate (Toprol Xl) 12.5 mg DAILY 08/11/20 15:00 08/14/20 09:13 Miscellaneous (Lidoderm Patch Removal) 1 ea QHS 08/09/20 21:00 08/12/20 20:21 Polyethylene Glycol (miraLAX PACKET) 17 gm DAILY 08/11/20 09:00 Sodium Chloride 1,000 ml @ 45 mls/hr [id number] 08/08/20 21:45 08/13/20 17:08 Vitamin D (Vitamin D3) 1,000 unit DAILY 08/12/20 17:30 08/14/20 09:13 Zinc Sulfate (Orazinc) 220 mg DAILY 08/12/20 17:30 08/14/20 09:13 Current Medications Medications (Trade) Dose Ordered Sig/Alon Route PRN Reason Start Time Stop Time Status Last Admin Dose Admin Info (Anti-Coagulation Monitoring By Pharmacy) 1 each PRN DAILY PRN MC PER PROTOCOL 08/13/20 12:30 08/13/20 12:30 LAB Lab: Laboratory Tests Test 08/14/20 05:55 White Blood Count 6.0 x10^3/uL (4.0-11.0) Red Blood Count 4.91 x10^6/uL (4.30-5.70) Hemoglobin 11.4 g/dL (13.0-17.5) L Hematocrit 35.8 % (39.0-53.0) L Mean Corpuscular Volume 73 fL (79-100) L Mean Corpuscular Hemoglobin 23 pg (25-35) L Mean Corpuscular Hemoglobin Concent 32 g/dL (31-37) Red Cell Distribution Width 16.8 % (11.5-14.5) H Platelet Count 180 x10^3/uL (140-400) Neutrophils (%) (Auto) 59 % (31-73) Lymphocytes (%) (Auto) 26 % (24-48) Monocytes (%) (Auto) 10 % (0-9) H Eosinophils (%) (Auto) 4 % (0-3) H Basophils (%) (Auto) 1 % (0-3) Neutrophils # (Auto) 3.5 x10^3/uL (1.8-7.7) Lymphocytes # (Auto) 1.6 x10^3/uL (1.0-4.8) Monocytes # (Auto) 0.6 x10^3/uL (0.0-1.1) Eosinophils # (Auto) 0.2 x10^3/uL (0.0-0.7) Basophils # (Auto) 0.0 x10^3/uL (0.0-0.2) Sodium Level 143 mmol/L (136-145) Potassium Level 3.5 mmol/L (3.5-5.1) Chloride Level 107 mmol/L (98-107) Carbon Dioxide Level 31 mmol/L (21-32) Anion Gap 5 (6-14) L Blood Urea Nitrogen 18 mg/dL (8-26) Creatinine 1.0 mg/dL (0.7-1.3) Estimated GFR (Cockcroft-Gault) 72.5 BUN/Creatinine Ratio 18 (6-20) Glucose Level 95 mg/dL (70-99) Calcium Level 8.2 mg/dL (8.5-10.1) L Total Bilirubin 1.2 mg/dL (0.2-1.0) H Aspartate Amino Transferase (AST) 20 U/L (15-37) Alanine Aminotransferase (ALT) 20 U/L (16-63) Alkaline Phosphatase 79 U/L (46-116) Total Protein 5.8 g/dL (6.4-8.2) L Albumin 2.7 g/dL (3.4-5.0) L Albumin/Globulin Ratio 0.9 (1.0-1.7) L Laboratory Tests 08/14/20 05:55 Laboratory Tests 08/14/20 05:55 ASSESSMENT & PLAN A&P Plan as noted above This note was created using [employer] and may have omissions and/or errors due to the nature of real-time 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 Justifications for Admission Other Justification AMEE VALENTINE MD Aug 14, 2020 11:23
--- NOTE | 2020-08-14 12:02 | PDOC ---
PULMONARY PROGRESS NOTES DATE: 08/14/20 TIME: 12:02 Subjective on RA denies sob cough Vitals Vital Signs Date Time Temp Pulse Resp B/P (MAP) Pulse Ox O2 Delivery O2 Flow Rate FiO2 08/14/20 11:14 98.0 65 20 165/90 (115) 99 Room Air 98.0 08/13/20 11:00 2.0 ROS: No Nausea, No Chest Pain, No Abdominal Pain General: Alert, Oriented X4 Lungs: Other (no accessory muscle use ) Cardiovascular: S1, S2 Abdomen: Other (obese) Neuro Exam: Alert Extremities: No Edema Skin: Other (no rash) Labs Laboratory Tests Test 08/14/20 05:55 White Blood Count 6.0 x10^3/uL (4.0-11.0) Red Blood Count 4.91 x10^6/uL (4.30-5.70) Hemoglobin 11.4 g/dL (13.0-17.5) Hematocrit 35.8 % (39.0-53.0) Mean Corpuscular Volume 73 fL (79-100) Mean Corpuscular Hemoglobin 23 pg (25-35) Mean Corpuscular Hemoglobin Concent 32 g/dL (31-37) Red Cell Distribution Width 16.8 % (11.5-14.5) Platelet Count 180 x10^3/uL (140-400) Neutrophils (%) (Auto) 59 % (31-73) Lymphocytes (%) (Auto) 26 % (24-48) Monocytes (%) (Auto) 10 % (0-9) Eosinophils (%) (Auto) 4 % (0-3) Basophils (%) (Auto) 1 % (0-3) Neutrophils # (Auto) 3.5 x10^3/uL (1.8-7.7) Lymphocytes # (Auto) 1.6 x10^3/uL (1.0-4.8) Monocytes # (Auto) 0.6 x10^3/uL (0.0-1.1) Eosinophils # (Auto) 0.2 x10^3/uL (0.0-0.7) Basophils # (Auto) 0.0 x10^3/uL (0.0-0.2) Sodium Level 143 mmol/L (136-145) Potassium Level 3.5 mmol/L (3.5-5.1) Chloride Level 107 mmol/L (98-107) Carbon Dioxide Level 31 mmol/L (21-32) Anion Gap 5 (6-14) Blood Urea Nitrogen 18 mg/dL (8-26) Creatinine 1.0 mg/dL (0.7-1.3) Estimated GFR (Cockcroft-Gault) 72.5 BUN/Creatinine Ratio 18 (6-20) Glucose Level 95 mg/dL (70-99) Calcium Level 8.2 mg/dL (8.5-10.1) Total Bilirubin 1.2 mg/dL (0.2-1.0) Aspartate Amino Transf (AST/SGOT) 20 U/L (15-37) Alanine Aminotransferase (ALT/SGPT) 20 U/L (16-63) Alkaline Phosphatase 79 U/L (46-116) Total Protein 5.8 g/dL (6.4-8.2) Albumin 2.7 g/dL (3.4-5.0) Albumin/Globulin Ratio 0.9 (1.0-1.7) Laboratory Tests Test 08/14/20 05:55 White Blood Count 6.0 x10^3/uL (4.0-11.0) Red Blood Count 4.91 x10^6/uL (4.30-5.70) Hemoglobin 11.4 g/dL (13.0-17.5) Hematocrit 35.8 % (39.0-53.0) Mean Corpuscular Volume 73 fL (79-100) Mean Corpuscular Hemoglobin 23 pg (25-35) Mean Corpuscular Hemoglobin Concent 32 g/dL (31-37) Red Cell Distribution Width 16.8 % (11.5-14.5) Platelet Count 180 x10^3/uL (140-400) Neutrophils (%) (Auto) 59 % (31-73) Lymphocytes (%) (Auto) 26 % (24-48) Monocytes (%) (Auto) 10 % (0-9) Eosinophils (%) (Auto) 4 % (0-3) Basophils (%) (Auto) 1 % (0-3) Neutrophils # (Auto) 3.5 x10^3/uL (1.8-7.7) Lymphocytes # (Auto) 1.6 x10^3/uL (1.0-4.8) Monocytes # (Auto) 0.6 x10^3/uL (0.0-1.1) Eosinophils # (Auto) 0.2 x10^3/uL (0.0-0.7) Basophils # (Auto) 0.0 x10^3/uL (0.0-0.2) Sodium Level 143 mmol/L (136-145) Potassium Level 3.5 mmol/L (3.5-5.1) Chloride Level 107 mmol/L (98-107) Carbon Dioxide Level 31 mmol/L (21-32) Anion Gap 5 (6-14) Blood Urea Nitrogen 18 mg/dL (8-26) Creatinine 1.0 mg/dL (0.7-1.3) Estimated GFR (Cockcroft-Gault) 72.5 BUN/Creatinine Ratio 18 (6-20) Glucose Level 95 mg/dL (70-99) Calcium Level 8.2 mg/dL (8.5-10.1) Total Bilirubin 1.2 mg/dL (0.2-1.0) Aspartate Amino Transf (AST/SGOT) 20 U/L (15-37) Alanine Aminotransferase (ALT/SGPT) 20 U/L (16-63) Alkaline Phosphatase 79 U/L (46-116) Total Protein 5.8 g/dL (6.4-8.2) Albumin 2.7 g/dL (3.4-5.0) Albumin/Globulin Ratio 0.9 (1.0-1.7) Medications Active Scripts Medications Dose Route/Sig Max Daily Dose Days Date Category Eliquis (Apixaban) 5 Mg Tablet 10 Mg PO BID 08/09/20 Reported Neurontin (Gabapentin) 600 Mg Tablet 600 Mg PO TID 08/08/20 Reported Impression . IMPRESSION: 1. Dyspnea and wheezing secondary to nonspecific acute bronchitis and restriction from current therapy with a brace that is restricting the patient from taking a deep breath. 2. Accidental fall. 3. T7 vertebral body fracture. 4. Chronic atrial fibrillation. 5. Prostate cancer. 6. COVID-19 + Plan . Updated 08/14/20 titrate fio2 to keep sat 90% on RA COVID positive-- isolation precautions IS to use multiple time an hour cont dexa for total of 10 days, Vit. C, D and zinc on eliquis Follow neurosurgery recs-- suspect has ruma psg as out pt DVT/GI PPX D/W RN pt needs placement PLAN: 08/11/20 1. Aggressive pulmonary hygiene with incentive spirometry. 2. Oxygen supplementation. 3. P.r.n. nebulized treatments. BERYR MCALLISTER MD Aug 14, 2020 12:02
[2020-08-14] MEDS: ANTI-COAG MONITOR BY PHARMACY. MC PRN (13:51)
[2020-08-14] MEDS: IV NORMAL SALINE 1000ML BAG 1,000 ML IV SCH (17:14)
[2020-08-14] MEDS: PATCH REMOVAL. MC SCH (21:16)
--- NOTE | 2020-08-15 03:02 | NUR ---
Reviewed charting done by previous RN and agree with assessment. Pt resting in bed quietly.
[2020-08-15 03:18] VITALS: BP 146/80
[2020-08-15 06:56] LABS: BASO % 1 % (0-3); EOS # 0.1 x10^3/uL (0.0-0.7); EOS % 2 % (0-3); HEMATOCRIT 37.7 % (39.0-53.0); HEMOGLOBIN 11.9 g/dL (13.0-17.5); LYMPH # 1.5 x10^3/uL (1.0-4.8); LYMPH % 22 % (24-48); MEAN CORPUSCULAR HEMOGLOBIN 23 pg (25-35); MEAN CORPUSCULAR HGB CONC 31 g/dL (31-37); MEAN CORPUSCULAR VOLUME 74 fL (79-100); MONO # 0.6 x10^3/uL (0.0-1.1); MONO % 9 % (0-9); NEUT # 4.6 x10^3/uL (1.8-7.7); NEUT % 67 % (31-73); PLATELET COUNT 188 x10^3/uL (140-400); RED BLOOD COUNT 5.07 x10^6/uL (4.30-5.70); RED CELL DISTRIBUTION WIDTH 16.7 % (11.5-14.5); WHITE BLOOD COUNT 6.9 x10^3/uL (4.0-11.0)
[2020-08-15 07:00] VITALS: BP 164/97
[2020-08-15 07:11] LABS: ALBUMIN 2.8 g/dL (3.4-5.0); CREATININE 0.9 mg/dL (0.7-1.3); GFR 81.8; POTASSIUM 3.7 mmol/L (3.5-5.1); TOTAL BILIRUBIN 0.8 mg/dL (0.2-1.0); TOTAL PROTEIN 5.5 g/dL (6.4-8.2)
[2020-08-15] MEDS ORDERED: CONTRAST GIVEN. MC PRN (07:30)
--- NOTE | 2020-08-15 07:49 | PDOC ---
[employer] PROGRESS NOTE Date of Service DOS: DATE: 08/15/20 TIME: 07:44 Chief Complaint Chief Complaint Assessment/Plan fall, acute neck pain MRI back shows acute t7 transferse fracture, T7 vertebral body fracture. - Transversely oriented fracture involving the T7 vertebral body without significant retropulsion or height loss. posterior epidural hematoma resulting in mild mass effect on the thecal sac without compression of the cord. No cord signal alteration is identified. Afib, on eliquis, chronic diastolic CHF, restarted Eliquis obese, BMI 42 Acute dysphagia Hallucinations H/O Prostate cancer. COVID-19 + - with history of previous COVID infection in 11/01 and received both doses of Moderna vaccine since then. needs to wear brace when up except for when showering neurosurgery follow in 2 weeks with thoracic spine films PT May need to go to rehab/ SNF d/w rn Pending CT of the head and neck today Echo: The LV EF is about 55%. The LA is mildly enlarged. The aortic root and the proximal ascending aorta are mildly enlarged. Mild MR and mild TR noted. The PA systolic pressure is mildly elevated. STRESS TEST FINDINGS: 03/04/2017 [facility] Pharmacological Stress Electrocardiogram: The patient's resting heart rate was 65 bpm and the resting blood pressure was 168/68. The patients peak stress heart rate was 91 bpm and the peak stress blood pressure was 158/87. His resting ECG demonstrated atrial fibrillation with a heart rate of 53, there are nonspecific T-wave changes noted. During pharmacologic stress he complained of shortness of breath. This resolved during the recovery phase. During the stress and the recovery phase he had occasional PVCs. He remained in atrial fib throughout. There is no ST segment changes noted. Conclusion: Pharmacologic stress ECG is negative for ischemia. 39 min pt exam, chart review, > 50% of time spent with exam, chart review, pt care coordination History of Present Illness History of Present Illness Mr Donovan is a 75yo M w/ PMHx Afib, HTN transferred from [facility] after a fall while gardening where he sustained a T7 fracture. 08/11: COVID 19 returned positive 08/12: No OE, afebrile. D/w speech therapist same patient did have some phonation after sips of water and coughing spells after drinking water. Cardiology noted hallucinations. Currently we are pending a CT head of neck. 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 Patient was bawling after stating that he lost his recently to Covid. 08/13: No surg plans, to wear brace for 2 weeks and follow in neurosurg office 08/14: pain is too severe for him to get up without assist, may need skilled Afebrile. No O2 needs. He is steered still tearful about the loss of his after 55 years of marriage. Frustrated by his diagnosis of COVID-19 despite having previously convalesced 11/02/2019 and had both moderna vaccines. Pain is better controlled. Vitals/I&O Vitals/I&O: Vital Signs Date Time Temp Pulse Resp B/P (MAP) Pulse Ox O2 Delivery O2 Flow Rate FiO2 08/15/20 03:18 97.5 62 18 146/80 (102) 98 Room Air 97.5 08/14/20 12:02 4.0 I & O 08/14/20 08/14/20 08/15/20 15:00 23:00 07:00 Intake Total 400 ml 200 ml Output Total 700 ml 500 ml 425 ml Balance -300 ml -300 ml -425 ml Physical Exam General: Alert, Oriented X3, Cooperative, No acute distress Heart: Other (irregularly irregular) Lungs: Other (no accessory muscle use ) Abdomen: Normal bowel sounds, Soft Extremities: No cyanosis, Other (1+ bilateral LE pitting edema) Skin: No breakdown, No significant lesion Labs Labs: Laboratory Tests Test 08/15/20 05:45 White Blood Count 6.9 x10^3/uL (4.0-11.0) Red Blood Count 5.07 x10^6/uL (4.30-5.70) Hemoglobin 11.9 g/dL (13.0-17.5) Hematocrit 37.7 % (39.0-53.0) Mean Corpuscular Volume 74 fL (79-100) Mean Corpuscular Hemoglobin 23 pg (25-35) Mean Corpuscular Hemoglobin Concent 31 g/dL (31-37) Red Cell Distribution Width 16.7 % (11.5-14.5) Platelet Count 188 x10^3/uL (140-400) Neutrophils (%) (Auto) 67 % (31-73) Lymphocytes (%) (Auto) 22 % (24-48) Monocytes (%) (Auto) 9 % (0-9) Eosinophils (%) (Auto) 2 % (0-3) Basophils (%) (Auto) 1 % (0-3) Neutrophils # (Auto) 4.6 x10^3/uL (1.8-7.7) Lymphocytes # (Auto) 1.5 x10^3/uL (1.0-4.8) Monocytes # (Auto) 0.6 x10^3/uL (0.0-1.1) Eosinophils # (Auto) 0.1 x10^3/uL (0.0-0.7) Basophils # (Auto) 0.0 x10^3/uL (0.0-0.2) Sodium Level 146 mmol/L (136-145) Potassium Level 3.7 mmol/L (3.5-5.1) Chloride Level 109 mmol/L (98-107) Carbon Dioxide Level 29 mmol/L (21-32) Anion Gap 8 (6-14) Blood Urea Nitrogen 15 mg/dL (8-26) Creatinine 0.9 mg/dL (0.7-1.3) Estimated GFR (Cockcroft-Gault) 81.8 BUN/Creatinine Ratio 17 (6-20) Glucose Level 93 mg/dL (70-99) Calcium Level 8.0 mg/dL (8.5-10.1) Total Bilirubin 0.8 mg/dL (0.2-1.0) Aspartate Amino Transf (AST/SGOT) 24 U/L (15-37) Alanine Aminotransferase (ALT/SGPT) 23 U/L (16-63) Alkaline Phosphatase 83 U/L (46-116) Total Protein 5.5 g/dL (6.4-8.2) Albumin 2.8 g/dL (3.4-5.0) Albumin/Globulin Ratio 1.0 (1.0-1.7) Comment Review of Relevant I have reviewed the following items brooks (where applicable) has been applied. Justifications for Admission Other Justification SOULEYMANE LEVIN MD Aug 15, 2020 07:49
[2020-08-15] MEDS ORDERED: ACETAMINOPHEN 325 MG TABLET. PO PRN (08:00)
[2020-08-15] MEDS ORDERED: hydrALAZINE 20 MG/ML VIAL. IVP PRN (08:00)
[2020-08-15] MEDS ORDERED: guaiFENesin DM 200MG/20MG 10 ML SYRUP PO PRN (08:00)
[2020-08-15] MEDS ORDERED: ONDANSETRON PF 4 MG/2 ML VIAL. IVP PRN (08:00)
[2020-08-15] MEDS ORDERED: IOHEXOL 350 MG/ML 100 ML VIAL. IV ONE (08:00)
[2020-08-15] MEDS: APIXABAN 5 MG TABLET. PO SCH ×2 (08:16→20:44)
[2020-08-15] MEDS: CHOLECALCIFEROL (VITAMIN D3) 1,000 UNIT TABLET PO SCH (08:16)
[2020-08-15] MEDS: METOPROLOL SUCC 24HR ER 25 MG TAB.ER.24H. PO SCH (08:17)
[2020-08-15] MEDS: GABAPENTIN 300 MG CAPSULE. PO SCH ×3 (08:17→20:44)
[2020-08-15] MEDS: DOCUSATE SODIUM 100 MG CAPSULE. PO SCH (08:17)
[2020-08-15] MEDS: ASCORBIC ACID 500 MG TABLET PO SCH (08:17)
[2020-08-15] MEDS: ZINC SULFATE 220 MG CAPSULE. PO SCH (08:18)
[2020-08-15] MEDS: DEXAMETHASONE 4 MG TABLET PO SCH (08:18)
[2020-08-15] MEDS: POLYETHYLENE GLYCOL 3350 17 GM PACKET. PO SCH (08:18)
[2020-08-15] MEDS: LIDOCAINE (700MG/PATCH) PATCH. TD SCH (08:42)
--- NOTE | 2020-08-15 10:05 | PDOC ---
PROGRESS NOTES Date of Service DATE: 08/15/20 TIME: 10:03 Subjective Subjective He continues with right anterior lower rib cage area pain. Objective Objective Vital Signs Date Time Temp Pulse Resp B/P (MAP) Pulse Ox O2 Delivery O2 Flow Rate FiO2 08/15/20 08:20 Room Air 08/15/20 08:17 62 146/80 08/15/20 07:00 97.8 18 97 97.8 08/14/20 12:02 4.0 Intake and Output 08/15/20 07:00 Intake Total 600 ml Output Total 1625 ml Balance -1025 ml Intake Oral 600 ml Output Urine Total 1625 ml # Bowel Movements 1 Physical Exam Physical Exam He is comfortable supine in bed with head end propped up. He was not seen by physical and occupational therapy in the last 2 days. Plan Plan of Care To resume physical and occupational therapy follow up and to SNF when medically stable. Comment Review of Relevant I have reviewed the following items brooks (where applicable) has been applied. Labs Laboratory Tests Test 08/14/20 05:55 08/15/20 05:45 White Blood Count 6.0 x10^3/uL (4.0-11.0) 6.9 x10^3/uL (4.0-11.0) Red Blood Count 4.91 x10^6/uL (4.30-5.70) 5.07 x10^6/uL (4.30-5.70) Hemoglobin 11.4 g/dL (13.0-17.5) 11.9 g/dL (13.0-17.5) Hematocrit 35.8 % (39.0-53.0) 37.7 % (39.0-53.0) Mean Corpuscular Volume 73 fL (79-100) 74 fL (79-100) Mean Corpuscular Hemoglobin 23 pg (25-35) 23 pg (25-35) Mean Corpuscular Hemoglobin Concent 32 g/dL (31-37) 31 g/dL (31-37) Red Cell Distribution Width 16.8 % (11.5-14.5) 16.7 % (11.5-14.5) Platelet Count 180 x10^3/uL (140-400) 188 x10^3/uL (140-400) Neutrophils (%) (Auto) 59 % (31-73) 67 % (31-73) Lymphocytes (%) (Auto) 26 % (24-48) 22 % (24-48) Monocytes (%) (Auto) 10 % (0-9) 9 % (0-9) Eosinophils (%) (Auto) 4 % (0-3) 2 % (0-3) Basophils (%) (Auto) 1 % (0-3) 1 % (0-3) Neutrophils # (Auto) 3.5 x10^3/uL (1.8-7.7) 4.6 x10^3/uL (1.8-7.7) Lymphocytes # (Auto) 1.6 x10^3/uL (1.0-4.8) 1.5 x10^3/uL (1.0-4.8) Monocytes # (Auto) 0.6 x10^3/uL (0.0-1.1) 0.6 x10^3/uL (0.0-1.1) Eosinophils # (Auto) 0.2 x10^3/uL (0.0-0.7) 0.1 x10^3/uL (0.0-0.7) Basophils # (Auto) 0.0 x10^3/uL (0.0-0.2) 0.0 x10^3/uL (0.0-0.2) Sodium Level 143 mmol/L (136-145) 146 mmol/L (136-145) Potassium Level 3.5 mmol/L (3.5-5.1) 3.7 mmol/L (3.5-5.1) Chloride Level 107 mmol/L (98-107) 109 mmol/L (98-107) Carbon Dioxide Level 31 mmol/L (21-32) 29 mmol/L (21-32) Anion Gap 5 (6-14) 8 (6-14) Blood Urea Nitrogen 18 mg/dL (8-26) 15 mg/dL (8-26) Creatinine 1.0 mg/dL (0.7-1.3) 0.9 mg/dL (0.7-1.3) Estimated GFR (Cockcroft-Gault) 72.5 81.8 BUN/Creatinine Ratio 18 (6-20) 17 (6-20) Glucose Level 95 mg/dL (70-99) 93 mg/dL (70-99) Calcium Level 8.2 mg/dL (8.5-10.1) 8.0 mg/dL (8.5-10.1) Total Bilirubin 1.2 mg/dL (0.2-1.0) 0.8 mg/dL (0.2-1.0) Aspartate Amino Transf (AST/SGOT) 20 U/L (15-37) 24 U/L (15-37) Alanine Aminotransferase (ALT/SGPT) 20 U/L (16-63) 23 U/L (16-63) Alkaline Phosphatase 79 U/L (46-116) 83 U/L (46-116) Total Protein 5.8 g/dL (6.4-8.2) 5.5 g/dL (6.4-8.2) Albumin 2.7 g/dL (3.4-5.0) 2.8 g/dL (3.4-5.0) Albumin/Globulin Ratio 0.9 (1.0-1.7) 1.0 (1.0-1.7) Laboratory Tests Test 08/15/20 05:45 White Blood Count 6.9 x10^3/uL (4.0-11.0) Red Blood Count 5.07 x10^6/uL (4.30-5.70) Hemoglobin 11.9 g/dL (13.0-17.5) Hematocrit 37.7 % (39.0-53.0) Mean Corpuscular Volume 74 fL (79-100) Mean Corpuscular Hemoglobin 23 pg (25-35) Mean Corpuscular Hemoglobin Concent 31 g/dL (31-37) Red Cell Distribution Width 16.7 % (11.5-14.5) Platelet Count 188 x10^3/uL (140-400) Neutrophils (%) (Auto) 67 % (31-73) Lymphocytes (%) (Auto) 22 % (24-48) Monocytes (%) (Auto) 9 % (0-9) Eosinophils (%) (Auto) 2 % (0-3) Basophils (%) (Auto) 1 % (0-3) Neutrophils # (Auto) 4.6 x10^3/uL (1.8-7.7) Lymphocytes # (Auto) 1.5 x10^3/uL (1.0-4.8) Monocytes # (Auto) 0.6 x10^3/uL (0.0-1.1) Eosinophils # (Auto) 0.1 x10^3/uL (0.0-0.7) Basophils # (Auto) 0.0 x10^3/uL (0.0-0.2) Sodium Level 146 mmol/L (136-145) Potassium Level 3.7 mmol/L (3.5-5.1) Chloride Level 109 mmol/L (98-107) Carbon Dioxide Level 29 mmol/L (21-32) Anion Gap 8 (6-14) Blood Urea Nitrogen 15 mg/dL (8-26) Creatinine 0.9 mg/dL (0.7-1.3) Estimated GFR (Cockcroft-Gault) 81.8 BUN/Creatinine Ratio 17 (6-20) Glucose Level 93 mg/dL (70-99) Calcium Level 8.0 mg/dL (8.5-10.1) Total Bilirubin 0.8 mg/dL (0.2-1.0) Aspartate Amino Transf (AST/SGOT) 24 U/L (15-37) Alanine Aminotransferase (ALT/SGPT) 23 U/L (16-63) Alkaline Phosphatase 83 U/L (46-116) Total Protein 5.5 g/dL (6.4-8.2) Albumin 2.8 g/dL (3.4-5.0) Albumin/Globulin Ratio 1.0 (1.0-1.7) Medications Current Medications Hydromorphone HCl (Dilaudid) 2 mg PRN Q2HR PRN IVP PAIN Last administered on 08/13/20 19:27; Start 08/08/20 at 21:45 Acetaminophen/ Hydrocodone Bitart (Lortab 10/325) 1 tab PRN Q6HRS PRN PO PAIN Last administered on 08/13/20 20:01; Start 08/08/20 at 21:45 Sodium Chloride 1,000 ml @ 45 mls/hr [id number] IV Last administered on 08/14/20 17:14; Start 08/08/20 at 21:45; Stop 08/15/20 at 07:50; Status DC Gabapentin (Neurontin) 600 mg TID PO Last administered on 7/5/21at 08:17; Start 08/08/20 at 22:00 Lidocaine (Lidoderm) 2 patch DAILY TD Last administered on 08/15/20 08:42; Start 08/09/20 at 10:30 Miscellaneous (Lidoderm Patch Removal) 1 ea QHS MC Last administered on 08/14/20 21:16; Start 08/09/20 at 21:00 Polyethylene Glycol (miraLAX PACKET) 17 gm 1X ONCE PO ; Start 08/10/20 at 13:00; Stop 08/10/20 at 13:07; Status DC Polyethylene Glycol (miraLAX PACKET) 17 gm DAILY PO Last administered on 08/15/20 08:18; Start 08/11/20 at 09:00 Docusate Sodium (Colace) 100 mg DAILY PO Last administered on 08/15/20 08:17; Start 08/11/20 at 09:00 Albuterol Sulfate (Ventolin Neb Soln) 2.5 mg PRN Q4HRS PRN NEB SHORTNESS OF BREATH Last administered on 08/12/20at 03:10; Start 08/11/20 at 03:15; Stop 08/13/20 at 02:47; Status DC Lorazepam (Ativan Inj) 0.5 mg PRN Q4HRS PRN IVP ANXIETY / AGITATION Last administered on 08/12/20 20:20; Start 08/11/20 at 03:15 Metoprolol Succinate (Toprol Xl) 12.5 mg DAILY PO Last administered on 08/15/20 08:17; Start 08/11/20 at 15:00 Apixaban (Eliquis) 5 mg BID PO Last administered on 08/15/20 08:16; Start 08/12/20 at 09:00 Dexamethasone (Decadron) 6 mg DAILYWBKFT PO Last administered on 08/15/20 08:18; Start 08/12/20 at 17:30 Ascorbic Acid (Vitamin C) 500 mg DAILY PO Last administered on 08/15/20 08:17; Start 08/12/20 at 17:30 Vitamin D (Vitamin D3) 1,000 unit DAILY PO Last administered on 08/15/20 08:16; Start 08/12/20 at 17:30 Zinc Sulfate (Orazinc) 220 mg DAILY PO Last administered on 7/5/21at 08:18; Start 08/12/20 at 17:30 Albuterol Sulfate (Ventolin Hfa) 2 puff PRN Q4HRS PRN INH SHORTNESS OF BREATH Last administered on 08/13/20at 02:51; Start 08/13/20 at 03:00 Info (Anti-Coagulation Monitoring By Pharmacy) 1 each PRN DAILY PRN MC PER PROTOCOL Last administered on 08/14/20at 13:51; Start 08/13/20 at 12:30 Iohexol (Omnipaque 350 Mg/ml) 100 ml 1X ONCE IV ; Start 08/15/20 at 08:00; Stop 08/15/20 at 08:01; Status DC Info (CONTRAST GIVEN -- Rx MONITORING) 1 each PRN DAILY PRN MC SEE COMMENTS; Start 08/15/20 at 07:30; Stop 08/17/20 at 07:29 Acetaminophen (Tylenol) 650 mg PRN Q6HRS PRN PO MILD PAIN / TEMP > 100.3'F; Start 08/15/20 at 08:00 Hydralazine HCl (Apresoline Inj) 10 mg PRN Q4HRS PRN IVP ELEVATED BP, SEE COMMENTS; Start 08/15/20 at 08:00 Psyllium Hydrophilic Mucilloid (Metamucil Fiber Packet) 1 pkt QHS PO ; Start 08/15/20 at 21:00 Guaifenesin (Robitussin Dm) 10 ml PRN Q6HRS PRN PO COUGH; Start 08/15/20 at 08:00 Ondansetron HCl (Zofran) 4 mg PRN Q4HRS PRN IVP NAUSEA/VOMITING; Start 08/15/20 at 08:00 Olanzapine (ZyPREXA ZYDIS) 5 mg PRN BID PRN PO ANXIETY / AGITATION; Start 08/15/20 at 08:00 Active Scripts Active Reported Eliquis (Apixaban) 5 Mg Tablet 5 Mg PO BID Neurontin (Gabapentin) 600 Mg Tablet 600 Mg PO TID Vitals/I & O Vital Sign - Last 24 Hours 08/14/20 08/14/20 08/14/20 08/14/20 11:14 12:02 15:23 19:00 Temp 98.0 98.0 98.5 98.0 98.0 98.5 Pulse 65 62 77 Resp 20 20 20 B/P (MAP) 165/90 (115) 141/89 (106) 153/87 (109) Pulse Ox 99 97 98 96 O2 Delivery Room Air Nasal Cannula Room Air Room Air O2 Flow Rate 4.0 08/14/20 08/14/20 08/15/20 08/15/20 20:30 23:12 03:18 07:00 Temp 97.0 97.5 97.8 97.0 97.5 97.8 Pulse 77 62 66 Resp 19 18 18 B/P (MAP) 144/80 (101) 146/80 (102) 164/97 (119) Pulse Ox 96 98 97 O2 Delivery Room Air Room Air Room Air 08/15/20 08/15/20 08:17 08:20 Pulse 62 B/P (MAP) 146/80 O2 Delivery Room Air Intake and Output 08/14/20 08/14/20 08/15/20 15:00 23:00 07:00 Intake Total 400 ml 200 ml Output Total 700 ml 500 ml 425 ml Balance -300 ml -300 ml -425 ml Justifications for Admission Other Justification EMANUEL KUHN MD Aug 15, 2020 10:05
--- NOTE | 2020-08-15 10:21 | PDOC ---
PULMONARY PROGRESS NOTES DATE: 08/15/20 TIME: 10:16 Subjective Pt. remains on room air No SOA or Cough no overnight events Vitals Vital Signs Date Time Temp Pulse Resp B/P (MAP) Pulse Ox O2 Delivery O2 Flow Rate FiO2 08/15/20 08:20 Room Air 08/15/20 08:17 62 146/80 08/15/20 07:00 97.8 18 97 97.8 08/14/20 12:02 4.0 ROS: No Nausea, No Chest Pain, No Abdominal Pain, No Increase Cough General: Alert, Oriented X4 Lungs: Clear Cardiovascular: S1, S2 Abdomen: Other (obese) Neuro Exam: Alert Extremities: No Edema Skin: Warm, Dry, Other Labs Laboratory Tests Test 08/14/20 05:55 08/15/20 05:45 White Blood Count 6.0 x10^3/uL (4.0-11.0) 6.9 x10^3/uL (4.0-11.0) Red Blood Count 4.91 x10^6/uL (4.30-5.70) 5.07 x10^6/uL (4.30-5.70) Hemoglobin 11.4 g/dL (13.0-17.5) 11.9 g/dL (13.0-17.5) Hematocrit 35.8 % (39.0-53.0) 37.7 % (39.0-53.0) Mean Corpuscular Volume 73 fL (79-100) 74 fL (79-100) Mean Corpuscular Hemoglobin 23 pg (25-35) 23 pg (25-35) Mean Corpuscular Hemoglobin Concent 32 g/dL (31-37) 31 g/dL (31-37) Red Cell Distribution Width 16.8 % (11.5-14.5) 16.7 % (11.5-14.5) Platelet Count 180 x10^3/uL (140-400) 188 x10^3/uL (140-400) Neutrophils (%) (Auto) 59 % (31-73) 67 % (31-73) Lymphocytes (%) (Auto) 26 % (24-48) 22 % (24-48) Monocytes (%) (Auto) 10 % (0-9) 9 % (0-9) Eosinophils (%) (Auto) 4 % (0-3) 2 % (0-3) Basophils (%) (Auto) 1 % (0-3) 1 % (0-3) Neutrophils # (Auto) 3.5 x10^3/uL (1.8-7.7) 4.6 x10^3/uL (1.8-7.7) Lymphocytes # (Auto) 1.6 x10^3/uL (1.0-4.8) 1.5 x10^3/uL (1.0-4.8) Monocytes # (Auto) 0.6 x10^3/uL (0.0-1.1) 0.6 x10^3/uL (0.0-1.1) Eosinophils # (Auto) 0.2 x10^3/uL (0.0-0.7) 0.1 x10^3/uL (0.0-0.7) Basophils # (Auto) 0.0 x10^3/uL (0.0-0.2) 0.0 x10^3/uL (0.0-0.2) Sodium Level 143 mmol/L (136-145) 146 mmol/L (136-145) Potassium Level 3.5 mmol/L (3.5-5.1) 3.7 mmol/L (3.5-5.1) Chloride Level 107 mmol/L (98-107) 109 mmol/L (98-107) Carbon Dioxide Level 31 mmol/L (21-32) 29 mmol/L (21-32) Anion Gap 5 (6-14) 8 (6-14) Blood Urea Nitrogen 18 mg/dL (8-26) 15 mg/dL (8-26) Creatinine 1.0 mg/dL (0.7-1.3) 0.9 mg/dL (0.7-1.3) Estimated GFR (Cockcroft-Gault) 72.5 81.8 BUN/Creatinine Ratio 18 (6-20) 17 (6-20) Glucose Level 95 mg/dL (70-99) 93 mg/dL (70-99) Calcium Level 8.2 mg/dL (8.5-10.1) 8.0 mg/dL (8.5-10.1) Total Bilirubin 1.2 mg/dL (0.2-1.0) 0.8 mg/dL (0.2-1.0) Aspartate Amino Transf (AST/SGOT) 20 U/L (15-37) 24 U/L (15-37) Alanine Aminotransferase (ALT/SGPT) 20 U/L (16-63) 23 U/L (16-63) Alkaline Phosphatase 79 U/L (46-116) 83 U/L (46-116) Total Protein 5.8 g/dL (6.4-8.2) 5.5 g/dL (6.4-8.2) Albumin 2.7 g/dL (3.4-5.0) 2.8 g/dL (3.4-5.0) Albumin/Globulin Ratio 0.9 (1.0-1.7) 1.0 (1.0-1.7) Laboratory Tests Test 08/15/20 05:45 White Blood Count 6.9 x10^3/uL (4.0-11.0) Red Blood Count 5.07 x10^6/uL (4.30-5.70) Hemoglobin 11.9 g/dL (13.0-17.5) Hematocrit 37.7 % (39.0-53.0) Mean Corpuscular Volume 74 fL (79-100) Mean Corpuscular Hemoglobin 23 pg (25-35) Mean Corpuscular Hemoglobin Concent 31 g/dL (31-37) Red Cell Distribution Width 16.7 % (11.5-14.5) Platelet Count 188 x10^3/uL (140-400) Neutrophils (%) (Auto) 67 % (31-73) Lymphocytes (%) (Auto) 22 % (24-48) Monocytes (%) (Auto) 9 % (0-9) Eosinophils (%) (Auto) 2 % (0-3) Basophils (%) (Auto) 1 % (0-3) Neutrophils # (Auto) 4.6 x10^3/uL (1.8-7.7) Lymphocytes # (Auto) 1.5 x10^3/uL (1.0-4.8) Monocytes # (Auto) 0.6 x10^3/uL (0.0-1.1) Eosinophils # (Auto) 0.1 x10^3/uL (0.0-0.7) Basophils # (Auto) 0.0 x10^3/uL (0.0-0.2) Sodium Level 146 mmol/L (136-145) Potassium Level 3.7 mmol/L (3.5-5.1) Chloride Level 109 mmol/L (98-107) Carbon Dioxide Level 29 mmol/L (21-32) Anion Gap 8 (6-14) Blood Urea Nitrogen 15 mg/dL (8-26) Creatinine 0.9 mg/dL (0.7-1.3) Estimated GFR (Cockcroft-Gault) 81.8 BUN/Creatinine Ratio 17 (6-20) Glucose Level 93 mg/dL (70-99) Calcium Level 8.0 mg/dL (8.5-10.1) Total Bilirubin 0.8 mg/dL (0.2-1.0) Aspartate Amino Transf (AST/SGOT) 24 U/L (15-37) Alanine Aminotransferase (ALT/SGPT) 23 U/L (16-63) Alkaline Phosphatase 83 U/L (46-116) Total Protein 5.5 g/dL (6.4-8.2) Albumin 2.8 g/dL (3.4-5.0) Albumin/Globulin Ratio 1.0 (1.0-1.7) Medications Active Scripts Medications Dose Route/Sig Max Daily Dose Days Date Category Eliquis (Apixaban) 5 Mg Tablet 10 Mg PO BID 08/09/20 Reported Neurontin (Gabapentin) 600 Mg Tablet 600 Mg PO TID 08/08/20 Reported Impression . IMPRESSION: 1. Dyspnea and wheezing secondary to nonspecific acute bronchitis and restriction from current therapy with a brace that is restricting the patient from taking a deep breath.--resolved 2. Accidental fall. 3. T7 vertebral body fracture. 4. Chronic atrial fibrillation. 5. Prostate cancer. 6. COVID-19 +, with history of previous COVID infection in 11/01 Plan . Updated 08/15/20 Respiratory status is compensated remains on room air COVID positive-- isolation precautions -- no need for remedsivir IS hourly Continue steroids for total of 10 days, Continue Vit. C, D and zinc Pt. denies any S/S of BRAYDEN DVT/GI PPX :Kb D/W RN we will sign off at this time please call with any questions or concerns Updated 7/4/21 titrate fio2 to keep sat 90% on RA COVID positive-- isolation precautions IS to use multiple time an hour cont dexa for total of 10 days, Vit. C, D and zinc on eliquis Follow neurosurgery recs-- suspect has brayden psg as out pt DVT/GI PPX D/W RN pt needs placement PLAN: 08/11/20 1. Aggressive pulmonary hygiene with incentive spirometry. 2. Oxygen supplementation. 3. P.r.n. nebulized treatments. MERRITT BURNS MD Aug 15, 2020 10:21
[2020-08-15 11:00] VITALS: BP 151/87
[2020-08-15 15:00] VITALS: BP 158/79
[2020-08-15 19:00] VITALS: BP 147/81
[2020-08-15] MEDS: PATCH REMOVAL. MC SCH (20:44)
[2020-08-15] MEDS: PSYLLIUM HUSK (SUGAR FREE) 1 PKT PACKET PO SCH (20:44)
[2020-08-15 23:33] VITALS: BP 155/92
[2020-08-16] VITALS (7 sets, daily range): BP systolic 118–167; BP diastolic 67–99
--- NOTE | 2020-08-16 08:49 | PDOC ---
PROGRESS NOTES Date of Service DATE: 08/16/20 TIME: 08:46 Subjective Subjective Nursing reports of no new complaints. Objective Objective Vital Signs Date Time Temp Pulse Resp B/P (MAP) Pulse Ox O2 Delivery O2 Flow Rate FiO2 08/16/20 08:21 Room Air 08/16/20 03:00 97.8 55 20 166/99 (121) 97 97.8 08/14/20 12:02 4.0 Intake and Output 08/16/20 06:59 Intake Total 460 ml Output Total 400 ml Balance 60 ml Intake Oral 460 ml Output Urine Total 400 ml # Voids 1 Physical Exam Physical Exam He is alert,sitting at edge of bed and he got up and walked with hand held assistance of physical therapy to the bathroom yesterday. Plan Plan of Care To screen for transfer to [facility] as it seems to be difficult to find a SNF that can accept with positive Covid-19. Comment Review of Relevant I have reviewed the following items brooks (where applicable) has been applied. Labs Laboratory Tests Test 08/15/20 05:45 White Blood Count 6.9 x10^3/uL (4.0-11.0) Red Blood Count 5.07 x10^6/uL (4.30-5.70) Hemoglobin 11.9 g/dL (13.0-17.5) Hematocrit 37.7 % (39.0-53.0) Mean Corpuscular Volume 74 fL (79-100) Mean Corpuscular Hemoglobin 23 pg (25-35) Mean Corpuscular Hemoglobin Concent 31 g/dL (31-37) Red Cell Distribution Width 16.7 % (11.5-14.5) Platelet Count 188 x10^3/uL (140-400) Neutrophils (%) (Auto) 67 % (31-73) Lymphocytes (%) (Auto) 22 % (24-48) Monocytes (%) (Auto) 9 % (0-9) Eosinophils (%) (Auto) 2 % (0-3) Basophils (%) (Auto) 1 % (0-3) Neutrophils # (Auto) 4.6 x10^3/uL (1.8-7.7) Lymphocytes # (Auto) 1.5 x10^3/uL (1.0-4.8) Monocytes # (Auto) 0.6 x10^3/uL (0.0-1.1) Eosinophils # (Auto) 0.1 x10^3/uL (0.0-0.7) Basophils # (Auto) 0.0 x10^3/uL (0.0-0.2) Sodium Level 146 mmol/L (136-145) Potassium Level 3.7 mmol/L (3.5-5.1) Chloride Level 109 mmol/L (98-107) Carbon Dioxide Level 29 mmol/L (21-32) Anion Gap 8 (6-14) Blood Urea Nitrogen 15 mg/dL (8-26) Creatinine 0.9 mg/dL (0.7-1.3) Estimated GFR (Cockcroft-Gault) 81.8 BUN/Creatinine Ratio 17 (6-20) Glucose Level 93 mg/dL (70-99) Calcium Level 8.0 mg/dL (8.5-10.1) Total Bilirubin 0.8 mg/dL (0.2-1.0) Aspartate Amino Transf (AST/SGOT) 24 U/L (15-37) Alanine Aminotransferase (ALT/SGPT) 23 U/L (16-63) Alkaline Phosphatase 83 U/L (46-116) Total Protein 5.5 g/dL (6.4-8.2) Albumin 2.8 g/dL (3.4-5.0) Albumin/Globulin Ratio 1.0 (1.0-1.7) Medications Current Medications Hydromorphone HCl (Dilaudid) 2 mg PRN Q2HR PRN IVP PAIN Last administered on 08/13/20at 19:27; Start 08/08/20 at 21:45 Acetaminophen/ Hydrocodone Bitart (Lortab 10/325) 1 tab PRN Q6HRS PRN PO PAIN Last administered on 08/13/20 20:01; Start 08/08/20 at 21:45 Sodium Chloride 1,000 ml @ 45 mls/hr [id number] IV Last administered on 08/14/20at 17:14; Start 08/08/20 at 21:45; Stop 08/15/20 at 07:50; Status DC Gabapentin (Neurontin) 600 mg TID PO Last administered on 08/15/20at 20:44; Start 08/08/20 at 22:00 Lidocaine (Lidoderm) 2 patch DAILY TD Last administered on 08/15/20at 08:42; Start 08/09/20 at 10:30 Miscellaneous (Lidoderm Patch Removal) 1 ea QHS MC Last administered on 08/15/20 20:44; Start 08/09/20 at 21:00 Polyethylene Glycol (miraLAX PACKET) 17 gm 1X ONCE PO ; Start 08/10/20 at 13:00; Stop 08/10/20 at 13:07; Status DC Polyethylene Glycol (miraLAX PACKET) 17 gm DAILY PO Last administered on 08/15/20 08:18; Start 08/11/20 at 09:00 Docusate Sodium (Colace) 100 mg DAILY PO Last administered on 08/15/20 08:17; Start 08/11/20 at 09:00 Albuterol Sulfate (Ventolin Neb Soln) 2.5 mg PRN Q4HRS PRN NEB SHORTNESS OF BREATH Last administered on 08/12/20at 03:10; Start 08/11/20 at 03:15; Stop 08/13/20 at 02:47; Status DC Lorazepam (Ativan Inj) 0.5 mg PRN Q4HRS PRN IVP ANXIETY / AGITATION Last administered on 08/12/20 20:20; Start 08/11/20 at 03:15 Metoprolol Succinate (Toprol Xl) 12.5 mg DAILY PO Last administered on 08/15/20 08:17; Start 08/11/20 at 15:00 Apixaban (Eliquis) 5 mg BID PO Last administered on 08/15/20 20:44; Start 08/12/20 at 09:00 Dexamethasone (Decadron) 6 mg DAILYWBKFT PO Last administered on 08/15/20 08:18; Start 08/12/20 at 17:30 Ascorbic Acid (Vitamin C) 500 mg DAILY PO Last administered on 08/15/20 08:17; Start 08/12/20 at 17:30 Vitamin D (Vitamin D3) 1,000 unit DAILY PO Last administered on 08/15/20 08:16; Start 08/12/20 at 17:30 Zinc Sulfate (Orazinc) 220 mg DAILY PO Last administered on 08/15/20 08:18; Start 08/12/20 at 17:30 Albuterol Sulfate (Ventolin Hfa) 2 puff PRN Q4HRS PRN INH SHORTNESS OF BREATH Last administered on 08/13/20at 02:51; Start 08/13/20 at 03:00 Info (Anti-Coagulation Monitoring By Pharmacy) 1 each PRN DAILY PRN MC PER PROTOCOL Last administered on 08/14/20at 13:51; Start 08/13/20 at 12:30 Iohexol (Omnipaque 350 Mg/ml) 100 ml 1X ONCE IV ; Start 08/15/20 at 08:00; Stop 08/15/20 at 08:01; Status DC Info (CONTRAST GIVEN -- Rx MONITORING) 1 each PRN DAILY PRN MC SEE COMMENTS; Start 08/15/20 at 07:30; Stop 08/17/20 at 07:29 Acetaminophen (Tylenol) 650 mg PRN Q6HRS PRN PO MILD PAIN / TEMP > 100.3'F; Start 08/15/20 at 08:00 Hydralazine HCl (Apresoline Inj) 10 mg PRN Q4HRS PRN IVP ELEVATED BP, SEE COMMENTS; Start 08/15/20 at 08:00 Psyllium Hydrophilic Mucilloid (Metamucil Fiber Packet) 1 pkt QHS PO Last administered on 08/15/20at 20:44; Start 08/15/20 at 21:00 Guaifenesin (Robitussin Dm) 10 ml PRN Q6HRS PRN PO COUGH; Start 08/15/20 at 08:00 Ondansetron HCl (Zofran) 4 mg PRN Q4HRS PRN IVP NAUSEA/VOMITING; Start 08/15/20 at 08:00 Olanzapine (ZyPREXA ZYDIS) 5 mg PRN BID PRN PO ANXIETY / AGITATION; Start 08/15/20 at 08:00 Active Scripts Active Reported Eliquis (Apixaban) 5 Mg Tablet 5 Mg PO BID Neurontin (Gabapentin) 600 Mg Tablet 600 Mg PO TID Vitals/I & O Vital Sign - Last 24 Hours 08/15/20 08/15/20 08/15/20 08/15/20 11:00 15:00 19:00 20:00 Temp 97.1 97.0 98.0 97.1 97.0 98.0 Pulse 60 88 69 Resp 18 18 20 B/P (MAP) 151/87 (108) 158/79 (105) 147/81 (103) Pulse Ox 95 96 97 O2 Delivery Room Air Room Air 08/15/20 08/16/20 08/16/20 23:33 03:00 08:21 Temp 97.7 97.8 97.7 97.8 Pulse 61 55 Resp 20 20 B/P (MAP) 155/92 (113) 166/99 (121) Pulse Ox 96 97 O2 Delivery Room Air Room Air Room Air Intake and Output 08/15/20 08/15/20 08/16/20 14:59 22:59 06:59 Intake Total 260 ml 200 ml Output Total 400 ml 0 ml Balance -140 ml 200 ml Justifications for Admission Other Justification EMANUEL KUHN MD Aug 16, 2020 08:49
[2020-08-16] MEDS: LIDOCAINE (700MG/PATCH) PATCH. TD SCH (09:55)
[2020-08-16] MEDS: POLYETHYLENE GLYCOL 3350 17 GM PACKET. PO SCH (09:55)
[2020-08-16] MEDS: APIXABAN 5 MG TABLET. PO SCH ×2 (09:56→20:54)
[2020-08-16] MEDS: GABAPENTIN 300 MG CAPSULE. PO SCH ×3 (09:56→20:54)
[2020-08-16] MEDS: ASCORBIC ACID 500 MG TABLET PO SCH (09:56)
[2020-08-16] MEDS: CHOLECALCIFEROL (VITAMIN D3) 1,000 UNIT TABLET PO SCH (09:56)
[2020-08-16] MEDS: DOCUSATE SODIUM 100 MG CAPSULE. PO SCH (09:56)
[2020-08-16] MEDS: DEXAMETHASONE 4 MG TABLET PO SCH (09:56)
[2020-08-16] MEDS: ZINC SULFATE 220 MG CAPSULE. PO SCH (09:56)
[2020-08-16] MEDS: METOPROLOL SUCC 24HR ER 25 MG TAB.ER.24H. PO SCH (09:57)
[2020-08-16] MEDS ORDERED: CONTRAST GIVEN. MC PRN (11:00)
[2020-08-16] MEDS ORDERED: IOHEXOL 350 MG/ML 100 ML VIAL. IV ONE (11:00)
--- NOTE | 2020-08-16 11:49 | PDOC ---
[employer] PROGRESS NOTE Date of Service DOS: DATE: 08/16/20 TIME: 11:47 Chief Complaint Chief Complaint Assessment/Plan fall, acute neck pain MRI back shows acute t7 transferse fracture, T7 vertebral body fracture. - Transversely oriented fracture involving the T7 vertebral body without significant retropulsion or height loss. posterior epidural hematoma resulting in mild mass effect on the thecal sac without compression of the cord. No cord signal alteration is identified. Afib, on eliquis, chronic diastolic CHF, restarted Eliquis obese, BMI 42 Acute dysphagia Hallucinations H/O Prostate cancer. COVID-19 + - with history of previous COVID infection in 11/01 and received both doses of Moderna vaccine since then. needs to wear brace when up except for when showering neurosurgery follow in 2 weeks with thoracic spine films PT May need to go to rehab/ SNF d/w rn Pending CT of the head and neck today Echo: The LV EF is about 55%. The LA is mildly enlarged. The aortic root and the proximal ascending aorta are mildly enlarged. Mild MR and mild TR noted. The PA systolic pressure is mildly elevated. STRESS TEST FINDINGS: 03/04/2017 [facility] Pharmacological Stress Electrocardiogram: The patient's resting heart rate was 65 bpm and the resting blood pressure was 168/68. The patients peak stress heart rate was 91 bpm and the peak stress blood pressure was 158/87. His resting ECG demonstrated atrial fibrillation with a heart rate of 53, there are nonspecific T-wave changes noted. During pharmacologic stress he complained of shortness of breath. This resolved during the recovery phase. During the stress and the recovery phase he had occasional PVCs. He remained in atrial fib throughout. There is no ST segment changes noted. Conclusion: Pharmacologic stress ECG is negative for ischemia. 39 min pt exam, chart review, > 50% of time spent with exam, chart review, pt care coordination History of Present Illness History of Present Illness Mr Donovan is a 75yo M w/ PMHx Afib, HTN transferred from [facility] after a fall while gardening where he sustained a T7 fracture. 08/11: COVID 19 returned positive 08/12: No OE, afebrile. D/w speech therapist same patient did have some phonation after sips of water and coughing spells after drinking water. Cardiology noted hallucinations. Currently we are pending a CT head of neck. 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 Patient was bawling after stating that he lost his recently to Covid. 08/13: No surg plans, to wear brace for 2 weeks and follow in neurosurg office 08/14: pain is too severe for him to get up without assist, may need skilled 08/15: Afebrile. No O2 needs. He is steered still tearful about the loss of his after 55 years of marriage. Frustrated by his diagnosis of COVID-19 despite having previously convalesced 11/02/2019 and had both moderna vaccines. Pain is better controlled. Afebrile. No O2 needs breathing improved. Pain is controlled. Able to sit up in bed and feels he may be up to working with therapy for longer sessions. Fr ustrated about his limited rehab options given his 19 PCR testing returned positive. Still grieving the loss of his . Plan: Acute rehab referral Continue steroids for total of 10 days, Continue Vit. C, D and zinc DVT/GI PPX :Eliquis Vitals/I&O Vitals/I&O: Vital Signs Date Time Temp Pulse Resp B/P (MAP) Pulse Ox O2 Delivery O2 Flow Rate FiO2 08/16/20 11:00 98.1 65 18 152/80 (104) 96 98.1 08/16/20 08:21 Room Air I & O 08/15/20 08/15/20 08/16/20 15:00 23:00 07:00 Intake Total 260 ml 200 ml Output Total 400 ml 0 ml Balance -140 ml 200 ml Physical Exam General: Alert, Oriented X3, Cooperative, No acute distress Heart: Other (irregularly irregular) Lungs: Clear Abdomen: Normal bowel sounds, Soft Extremities: No cyanosis, Other (1+ bilateral LE pitting edema) Skin: No breakdown, No significant lesion Comment Review of Relevant I have reviewed the following items brooks (where applicable) has been applied. Medications: Current Medications Medications (Trade) Dose Ordered Sig/Alon Route PRN Reason Start Time Stop Time Status Last Admin Dose Admin Psyllium Hydrophilic Mucilloid (Metamucil Fiber Packet) 1 pkt QHS PO 08/15/20 21:00 08/15/20 20:44 Justifications for Admission Other Justification SOULEYMANE LEVIN MD Aug 16, 2020 11:49
--- NOTE | 2020-08-16 12:33 | NUR ---
[facility] following. Discussed with RN, pt accepted at [facility] for SNF. Pt's COVID rapid was negative but PCR came back positive. [facility] requesting a repeat COVID PCR test and will only accept pt if that is negative. Pt has had COVID and has had both COVID vaccines. Awaiting repeat COVID result. [facility] will continue to follow.
[2020-08-16] MEDS: PSYLLIUM HUSK (SUGAR FREE) 1 PKT PACKET PO SCH (20:54)
[2020-08-16] MEDS: PATCH REMOVAL. MC SCH (20:54)
[2020-08-17 03:00] VITALS: BP 151/78
[2020-08-17 07:00] VITALS: BP 152/90
--- NOTE | 2020-08-17 07:23 | PDOC ---
[employer] PROGRESS NOTE Date of Service DOS: DATE: 08/17/20 TIME: 07:22 Chief Complaint Chief Complaint Assessment/Plan fall, acute neck pain MRI back shows acute t7 transferse fracture, T7 vertebral body fracture. - Transversely oriented fracture involving the T7 vertebral body without significant retropulsion or height loss. posterior epidural hematoma resulting in mild mass effect on the thecal sac without compression of the cord. No cord signal alteration is identified. Afib, on eliquis, chronic diastolic CHF, restarted Eliquis obese, BMI 42 Acute dysphagia Hallucinations H/O Prostate cancer. COVID-19 + - with history of previous COVID infection in 11/01 and received both doses of Moderna vaccine since then. needs to wear brace when up except for when showering neurosurgery follow in 2 weeks with thoracic spine films PT May need to go to rehab/ SNF d/w rn Pending CT of the head and neck today Echo: The LV EF is about 55%. The LA is mildly enlarged. The aortic root and the proximal ascending aorta are mildly enlarged. Mild MR and mild TR noted. The PA systolic pressure is mildly elevated. STRESS TEST FINDINGS: 03/04/2017 [facility] Pharmacological Stress Electrocardiogram: The patient's resting heart rate was 65 bpm and the resting blood pressure was 168/68. The patients peak stress heart rate was 91 bpm and the peak stress blood pressure was 158/87. His resting ECG demonstrated atrial fibrillation with a heart rate of 53, there are nonspecific T-wave changes noted. During pharmacologic stress he complained of shortness of breath. This resolved during the recovery phase. During the stress and the recovery phase he had occasional PVCs. He remained in atrial fib throughout. There is no ST segment changes noted. Conclusion: Pharmacologic stress ECG is negative for ischemia. 39 min pt exam, chart review, > 50% of time spent with exam, chart review, pt care coordination History of Present Illness History of Present Illness Mr Donovan is a 75yo M w/ PMHx Afib, HTN transferred from [facility] after a fall while gardening where he sustained a T7 fracture. 08/11: COVID 19 returned positive 08/12: No OE, afebrile. D/w speech therapist same patient did have some phonation after sips of water and coughing spells after drinking water. Cardiology noted hallucinations. Currently we are pending a CT head of neck. 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 Patient was bawling after stating that he lost his recently to Covid. 08/13: No surg plans, to wear brace for 2 weeks and follow in neurosurg office 08/14: pain is too severe for him to get up without assist, may need skilled 08/15: Afebrile. No O2 needs. He is steered still tearful about the loss of his after 55 years of marriage. Frustrated by his diagnosis of COVID-19 despite having previously convalesced 11/02/2019 and had both moderna vaccines. Pain is better controlled. 08/16: Afebrile. No O2 needs breathing improved. Pain is controlled. Able to sit up in bed and feels he may be up to working with therapy for longer sessions. Frustrated about his limited rehab options given his 19 PCR testing returned positive. Still grieving the loss of his . Afebrile. He is feeling a little stronger. Pain is controlled. Repeat COVID- 19 PCR again positive. Asymptomatic with regard to this. Therapy recommends acute rehab. Plan: Acute rehab referral Continue steroids for total of 10 days, Continue Vit. C, D and zinc DVT/GI PPX :Eliquis Vitals/I&O Vitals/I&O: Vital Signs Date Time Temp Pulse Resp B/P (MAP) Pulse Ox O2 Delivery O2 Flow Rate FiO2 08/17/20 03:00 97.1 84 17 151/78 (102) 97 Room Air 4.0 97.1 I & O 08/16/20 08/16/20 08/17/20 15:00 23:00 07:00 Intake Total 240 ml 100 ml Output Total 200 ml 100 ml Balance 40 ml 0 ml Physical Exam General: Alert, Oriented X3, Cooperative, No acute distress Heart: Other (irregularly irregular) Lungs: Clear Abdomen: Normal bowel sounds, Soft Extremities: No cyanosis, Other (1+ bilateral LE pitting edema) Skin: No breakdown, No significant lesion Comment Review of Relevant I have reviewed the following items brooks (where applicable) has been applied. Justifications for Admission Other Justification SOULEYMANE LEVIN MD Aug 17, 2020 07:23
--- NOTE | 2020-08-17 09:47 | PDOC ---
PROGRESS NOTES Date of Service DATE: 08/17/20 TIME: 09:45 Subjective Subjective No new complaints. Objective Objective Vital Signs Date Time Temp Pulse Resp B/P (MAP) Pulse Ox O2 Delivery O2 Flow Rate FiO2 08/17/20 07:00 97.6 50 18 152/90 (110) 97 97.6 08/17/20 03:00 Room Air 4.0 Intake and Output 08/17/20 07:00 Intake Total 340 ml Output Total 300 ml Balance 40 ml Intake Oral 340 ml Output Urine Total 300 ml # Voids 3 # Bowel Movements 2 Physical Exam Physical Exam He is working with therapy who recommend him to go to acute rehab unit for continued care. SNF wants repeat Covid-19 PCR test. Plan Plan of Care To continue present rehab efforts as tolerated. Comment Review of Relevant I have reviewed the following items brooks (where applicable) has been applied. Medications Current Medications Hydromorphone HCl (Dilaudid) 2 mg PRN Q2HR PRN IVP PAIN Last administered on 08/13/20 19:27; Start 08/08/20 at 21:45 Acetaminophen/ Hydrocodone Bitart (Lortab 10/325) 1 tab PRN Q6HRS PRN PO MODERATE-SEVERE PAIN Last administered on 08/13/20 20:01; Start 08/08/20 at 21:45 Sodium Chloride 1,000 ml @ 45 mls/hr [id number] IV Last administered on 08/14/20 17:14; Start 08/08/20 at 21:45; Stop 08/15/20 at 07:50; Status DC Gabapentin (Neurontin) 600 mg TID PO Last administered on 08/16/20 20:54; Start 08/08/20 at 22:00 Lidocaine (Lidoderm) 2 patch DAILY TD Last administered on 08/16/20 09:55; Start 08/09/20 at 10:30 Miscellaneous (Lidoderm Patch Removal) 1 ea QHS MC Last administered on 08/16/20 20:54; Start 08/09/20 at 21:00 Polyethylene Glycol (miraLAX PACKET) 17 gm 1X ONCE PO ; Start 08/10/20 at 13:00; Stop 08/10/20 at 13:07; Status DC Polyethylene Glycol (miraLAX PACKET) 17 gm DAILY PO Last administered on 08/16/20 09:55; Start 08/11/20 at 09:00 Docusate Sodium (Colace) 100 mg DAILY PO Last administered on 08/16/20 09:56; Start 08/11/20 at 09:00 Albuterol Sulfate (Ventolin Neb Soln) 2.5 mg PRN Q4HRS PRN NEB SHORTNESS OF BREATH Last administered on 08/12/20at 03:10; Start 08/11/20 at 03:15; Stop 08/13/20 at 02:47; Status DC Lorazepam (Ativan Inj) 0.5 mg PRN Q4HRS PRN IVP ANXIETY / AGITATION Last administered on 08/12/20 20:20; Start 08/11/20 at 03:15 Metoprolol Succinate (Toprol Xl) 12.5 mg DAILY PO Last administered on 08/16/20 09:57; Start 08/11/20 at 15:00 Apixaban (Eliquis) 5 mg BID PO Last administered on 08/16/20 20:54; Start 08/12/20 at 09:00 Dexamethasone (Decadron) 6 mg DAILYWBKFT PO Last administered on 08/16/20 09:56; Start 08/12/20 at 17:30 Ascorbic Acid (Vitamin C) 500 mg DAILY PO Last administered on 08/16/20 09:56; Start 08/12/20 at 17:30 Vitamin D (Vitamin D3) 1,000 unit DAILY PO Last administered on 08/16/20 09:56; Start 08/12/20 at 17:30 Zinc Sulfate (Orazinc) 220 mg DAILY PO Last administered on 08/16/20 09:56; Start 08/12/20 at 17:30 Albuterol Sulfate (Ventolin Hfa) 2 puff PRN Q4HRS PRN INH SHORTNESS OF BREATH Last administered on 08/13/20 02:51; Start 08/13/20 at 03:00 Info (Anti-Coagulation Monitoring By Pharmacy) 1 each PRN DAILY PRN MC PER PROTOCOL Last administered on 08/14/20 13:51; Start 08/13/20 at 12:30 Iohexol (Omnipaque 350 Mg/ml) 100 ml 1X ONCE IV ; Start 08/15/20 at 08:00; Stop 08/15/20 at 08:01; Status DC Info (CONTRAST GIVEN -- Rx MONITORING) 1 each PRN DAILY PRN MC SEE COMMENTS; Start 08/15/20 at 07:30; Stop 08/17/20 at 07:29; Status Cancel Acetaminophen (Tylenol) 650 mg PRN Q6HRS PRN PO MILD PAIN / TEMP > 100.3'F; Start 08/15/20 at 08:00 Hydralazine HCl (Apresoline Inj) 10 mg PRN Q4HRS PRN IVP ELEVATED BP, SEE COMM ENTS; Start 08/15/20 at 08:00 Psyllium Hydrophilic Mucilloid (Metamucil Fiber Packet) 1 pkt QHS PO Last administered on 08/16/20at 20:54; Start 08/15/20 at 21:00 Guaifenesin (Robitussin Dm) 10 ml PRN Q6HRS PRN PO COUGH; Start 08/15/20 at 08:00 Ondansetron HCl (Zofran) 4 mg PRN Q4HRS PRN IVP NAUSEA/VOMITING; Start 08/15/20 at 08:00 Olanzapine (ZyPREXA ZYDIS) 5 mg PRN BID PRN PO ANXIETY / AGITATION; Start 08/15/20 at 08:00 Iohexol (Omnipaque 350 Mg/ml) 100 ml 1X ONCE IV ; Start 08/16/20 at 11:00; Stop 08/16/20 at 11:01; Status DC Info (CONTRAST GIVEN -- Rx MONITORING) 1 each PRN DAILY PRN MC SEE COMMENTS; Start 08/16/20 at 11:00; Stop 08/18/20 at 10:59 Active Scripts Active Reported Eliquis (Apixaban) 5 Mg Tablet 5 Mg PO BID Neurontin (Gabapentin) 600 Mg Tablet 600 Mg PO TID Vitals/I & O Vital Sign - Last 24 Hours 08/16/20 08/16/20 08/16/20 08/16/20 09:57 11:00 15:00 19:00 Temp 98.1 97.9 96.7 98.1 97.9 96.7 Pulse 64 65 59 61 Resp 18 18 18 B/P (MAP) 159/82 152/80 (104) 155/80 (105) 125/67 (86) Pulse Ox 96 96 100 O2 Delivery Room Air O2 Flow Rate 4.0 7/6/21 7/6/21 7/7/21 7/7/21 20:00 22:41 03:00 07:00 Temp 96.7 97.1 97.6 96.7 97.1 97.6 Pulse 70 84 50 Resp 18 17 18 B/P (MAP) 118/73 (88) 151/78 (102) 152/90 (110) Pulse Ox 100 97 97 O2 Delivery Room Air Room Air Room Air O2 Flow Rate 4.0 4.0 Intake and Output 08/16/20 08/16/20 08/17/20 15:00 23:00 07:00 Intake Total 240 ml 100 ml Output Total 200 ml 100 ml Balance 40 ml 0 ml Justifications for Admission Other Justification EMANUEL KUHN MD Aug 17, 2020 09:47
[2020-08-17] MEDS: CHOLECALCIFEROL (VITAMIN D3) 1,000 UNIT TABLET PO SCH (10:35)
[2020-08-17] MEDS: ZINC SULFATE 220 MG CAPSULE. PO SCH (10:35)
[2020-08-17] MEDS: APIXABAN 5 MG TABLET. PO SCH ×2 (10:35→20:38)
[2020-08-17] MEDS: DEXAMETHASONE 4 MG TABLET PO SCH (10:35)
[2020-08-17] MEDS: POLYETHYLENE GLYCOL 3350 17 GM PACKET. PO SCH (10:36)
[2020-08-17] MEDS: DOCUSATE SODIUM 100 MG CAPSULE. PO SCH (10:36)
[2020-08-17] MEDS: METOPROLOL SUCC 24HR ER 25 MG TAB.ER.24H. PO SCH (10:36)
[2020-08-17] MEDS: GABAPENTIN 300 MG CAPSULE. PO SCH ×3 (10:36→20:38)
[2020-08-17] MEDS: LIDOCAINE (700MG/PATCH) PATCH. TD SCH (10:36)
[2020-08-17] MEDS: ASCORBIC ACID 500 MG TABLET PO SCH (10:36)
[2020-08-17 11:00] VITALS: BP 160/85
--- NOTE | 2020-08-17 12:11 | NUR ---
SW following. Discussed with RN, second COVID test still showing POSITIVE. SW has been unable to find facilities to take COVID positive patients the last couple months. SW will continue to follow.
[2020-08-17 15:00] VITALS: BP 155/79
[2020-08-17 19:00] VITALS: BP 119/67
[2020-08-17] MEDS: PSYLLIUM HUSK (SUGAR FREE) 1 PKT PACKET PO SCH ×2 (20:37→20:43)
[2020-08-17] MEDS: PATCH REMOVAL. MC SCH (20:38)
[2020-08-17 23:00] VITALS: BP 131/85
[2020-08-18 03:00] VITALS: BP 159/85
[2020-08-18 07:00] VITALS: BP 170/100
[2020-08-18] MEDS: DOCUSATE SODIUM 100 MG CAPSULE. PO SCH ×2 (09:00→09:23)
[2020-08-18] MEDS: LIDOCAINE (700MG/PATCH) PATCH. TD SCH ×2 (09:00→09:23)
[2020-08-18] MEDS: POLYETHYLENE GLYCOL 3350 17 GM PACKET. PO SCH ×2 (09:00→09:22)
[2020-08-18] MEDS: APIXABAN 5 MG TABLET. PO SCH ×2 (09:23→20:39)
[2020-08-18] MEDS: DEXAMETHASONE 4 MG TABLET PO SCH (09:23)
[2020-08-18] MEDS: ASCORBIC ACID 500 MG TABLET PO SCH (09:23)
[2020-08-18] MEDS: GABAPENTIN 300 MG CAPSULE. PO SCH ×3 (09:23→20:39)
[2020-08-18] MEDS: ZINC SULFATE 220 MG CAPSULE. PO SCH (09:24)
[2020-08-18] MEDS: CHOLECALCIFEROL (VITAMIN D3) 1,000 UNIT TABLET PO SCH (09:24)
[2020-08-18] MEDS: METOPROLOL SUCC 24HR ER 25 MG TAB.ER.24H. PO SCH (09:24)
--- NOTE | 2020-08-18 09:27 | PDOC ---
PROGRESS NOTES Date of Service DATE: 08/18/20 TIME: 09:25 Subjective Subjective Nursing reports of him doing better,except requiring assistance in donning socks. Objective Objective Vital Signs Date Time Temp Pulse Resp B/P (MAP) Pulse Ox O2 Delivery O2 Flow Rate FiO2 08/18/20 07:00 96.9 65 18 170/100 (123) 96 Room Air 96.9 08/17/20 03:00 4.0 Intake and Output 08/18/20 07:00 Intake Total 460 ml Output Total 150 ml Balance 310 ml Intake Oral 460 ml Output Urine Total 150 ml # Voids 2 # Bowel Movements 2 Physical Exam Physical Exam He is moving in bed and walking with roller walker independently in his room. Plan Plan of Care Agree with plans for transfer to a facility that can accept or as he wishes,home with home health follow up when medically stable. Comment Review of Relevant I have reviewed the following items brooks (where applicable) has been applied. Labs Laboratory Tests Test 08/16/20 12:28 SARS-CoV-2 RNA (LORNA) Positive (Negative) Medications Current Medications Hydromorphone HCl (Dilaudid) 2 mg PRN Q2HR PRN IVP PAIN Last administered on 08/13/20 19:27; Start 08/08/20 at 21:45 Acetaminophen/ Hydrocodone Bitart (Lortab 10/325) 1 tab PRN Q6HRS PRN PO MODERATE-SEVERE PAIN Last administered on 08/13/20 20:01; Start 08/08/20 at 21:45 Sodium Chloride 1,000 ml @ 45 mls/hr [id number] IV Last administered on 08/14/20at 17:14; Start 08/08/20 at 21:45; Stop 08/15/20 at 07:50; Status DC Gabapentin (Neurontin) 600 mg TID PO Last administered on 08/17/20 20:38; Start 08/08/20 at 22:00 Lidocaine (Lidoderm) 2 patch DAILY TD Last administered on 08/17/20 10:36; Start 08/09/20 at 10:30 Miscellaneous (Lidoderm Patch Removal) 1 ea QHS MC Last administered on 1at 20:38; Start 08/09/20 at 21:00 Polyethylene Glycol (miraLAX PACKET) 17 gm 1X ONCE PO ; Start 08/10/20 at 13:00; Stop 08/10/20 at 13:07; Status DC Polyethylene Glycol (miraLAX PACKET) 17 gm DAILY PO Last administered on 08/17/20 10:36; Start 08/11/20 at 09:00 Docusate Sodium (Colace) 100 mg DAILY PO Last administered on 08/17/20 10:36; Start 08/11/20 at 09:00 Albuterol Sulfate (Ventolin Neb Soln) 2.5 mg PRN Q4HRS PRN NEB SHORTNESS OF BREATH Last administered on 08/12/20 03:10; Start 08/11/20 at 03:15; Stop 08/13/20 at 02:47; Status DC Lorazepam (Ativan Inj) 0.5 mg PRN Q4HRS PRN IVP ANXIETY / AGITATION Last administered on 08/12/20at 20:20; Start 08/11/20 at 03:15 Metoprolol Succinate (Toprol Xl) 12.5 mg DAILY PO Last administered on 08/17/20 10:36; Start 08/11/20 at 15:00 Apixaban (Eliquis) 5 mg BID PO Last administered on 08/17/20 20:38; Start 08/12/20 at 09:00 Dexamethasone (Decadron) 6 mg DAILYWBKFT PO Last administered on 08/17/20 10:35; Start 08/12/20 at 17:30 Ascorbic Acid (Vitamin C) 500 mg DAILY PO Last administered on 08/17/20 10:36; Start 08/12/20 at 17:30 Vitamin D (Vitamin D3) 1,000 unit DAILY PO Last administered on 08/17/20 10:35; Start 08/12/20 at 17:30 Zinc Sulfate (Orazinc) 220 mg DAILY PO Last administered on 08/17/20 10:35; Start 08/12/20 at 17:30 Albuterol Sulfate (Ventolin Hfa) 2 puff PRN Q4HRS PRN INH SHORTNESS OF BREATH Last administered on 08/13/20 02:51; Start 08/13/20 at 03:00 Info (Anti-Coagulation Monitoring By Pharmacy) 1 each PRN DAILY PRN MC PER PROTOCOL Last administered on 08/14/20 13:51; Start 08/13/20 at 12:30 Iohexol (Omnipaque 350 Mg/ml) 100 ml 1X ONCE IV ; Start 08/15/20 at 08:00; Stop 08/15/20 at 08:01; Status DC Info (CONTRAST GIVEN -- Rx MONITORING) 1 each PRN DAILY PRN MC SEE COMMENTS; Start 08/15/20 at 07:30; Stop 08/17/20 at 07:29; Status Cancel Acetaminophen (Tylenol) 650 mg PRN Q6HRS PRN PO MILD PAIN / TEMP > 100.3'F; Start 08/15/20 at 08:00 Hydralazine HCl (Apresoline Inj) 10 mg PRN Q4HRS PRN IVP ELEVATED BP, SEE COMMENTS; Start 08/15/20 at 08:00 Psyllium Hydrophilic Mucilloid (Metamucil Fiber Packet) 1 pkt QHS PO Last administered on 08/16/20at 20:54; Start 08/15/20 at 21:00 Guaifenesin (Robitussin Dm) 10 ml PRN Q6HRS PRN PO COUGH; Start 08/15/20 at 08:00 Ondansetron HCl (Zofran) 4 mg PRN Q4HRS PRN IVP NAUSEA/VOMITING; Start 08/15/20 at 08:00 Olanzapine (ZyPREXA ZYDIS) 5 mg PRN BID PRN PO ANXIETY / AGITATION; Start 08/15/20 at 08:00 Iohexol (Omnipaque 350 Mg/ml) 100 ml 1X ONCE IV ; Start 08/16/20 at 11:00; Stop 08/16/20 at 11:01; Status DC Info (CONTRAST GIVEN -- Rx MONITORING) 1 each PRN DAILY PRN MC SEE COMMENTS; Start 08/16/20 at 11:00; Stop 08/18/20 at 10:59 Active Scripts Active Reported Eliquis (Apixaban) 5 Mg Tablet 5 Mg PO BID Neurontin (Gabapentin) 600 Mg Tablet 600 Mg PO TID Vitals/I & O Vital Sign - Last 24 Hours 08/17/20 08/17/20 08/17/20 08/17/20 10:36 11:00 15:00 17:59 Temp 97.8 97.9 97.8 97.9 Pulse 50 62 71 Resp 18 18 B/P (MAP) 152/90 160/85 (110) 155/79 (104) Pulse Ox 95 95 O2 Delivery Room Air 08/17/20 08/17/20 08/17/20 08/18/20 19:00 19:15 23:00 03:00 Temp 98.0 98.1 98.6 98.0 98.1 98.6 Pulse 66 60 64 Resp 17 18 18 B/P (MAP) 119/67 (84) 131/85 (100) 159/85 (109) Pulse Ox 94 96 96 O2 Delivery Room Air Room Air Room Air Room Air 08/18/20 07:00 Temp 96.9 96.9 Pulse 65 Resp 18 B/P (MAP) 170/100 (123) Pulse Ox 96 O2 Delivery Room Air Intake and Output 08/17/20 08/17/20 08/18/20 15:00 23:00 07:00 Intake Total 120 ml 340 ml Output Total 150 ml Balance -30 ml 340 ml Justifications for Admission Other Justification EMANUEL KUHN MD Aug 18, 2020 09:27
[2020-08-18 11:00] VITALS: BP 122/73
--- NOTE | 2020-08-18 11:51 | PDOC ---
[employer] PROGRESS NOTE Date of Service DOS: DATE: 08/18/20 TIME: 11:50 Chief Complaint Chief Complaint Assessment/Plan fall, acute neck pain MRI back shows acute t7 transferse fracture, T7 vertebral body fracture. - Transversely oriented fracture involving the T7 vertebral body without significant retropulsion or height loss. posterior epidural hematoma resulting in mild mass effect on the thecal sac without compression of the cord. No cord signal alteration is identified. Afib, on eliquis, chronic diastolic CHF, restarted Eliquis obese, BMI 42 Acute dysphagia Hallucinations H/O Prostate cancer. COVID-19 + - with history of previous COVID infection in 11/01 and received both doses of Moderna vaccine since then. needs to wear brace when up except for when showering neurosurgery follow in 2 weeks with thoracic spine films PT May need to go to rehab/ SNF d/w rn Pending CT of the head and neck today Echo: The LV EF is about 55%. The LA is mildly enlarged. The aortic root and the proximal ascending aorta are mildly enlarged. Mild MR and mild TR noted. The PA systolic pressure is mildly elevated. STRESS TEST FINDINGS: 03/04/2017 [facility] Pharmacological Stress Electrocardiogram: The patient's resting heart rate was 65 bpm and the resting blood pressure was 168/68. The patients peak stress heart rate was 91 bpm and the peak stress blood pressure was 158/87. His resting ECG demonstrated atrial fibrillation with a heart rate of 53, there are nonspecific T-wave changes noted. During pharmacologic stress he complained of shortness of breath. This resolved during the recovery phase. During the stress and the recovery phase he had occasional PVCs. He remained in atrial fib throughout. There is no ST segment changes noted. Conclusion: Pharmacologic stress ECG is negative for ischemia. 39 min pt exam, chart review, > 50% of time spent with exam, chart review, pt care coordination History of Present Illness History of Present Illness Mr Donovan is a 75yo M w/ PMHx Afib, HTN transferred from [facility] after a fall while gardening where he sustained a T7 fracture. 08/11: COVID 19 returned positive 08/12: No OE, afebrile. D/w speech therapist same patient did have some phonation after sips of water and coughing spells after drinking water. Cardiology noted hallucinations. Currently we are pending a CT head of neck. 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 Patient was bawling after stating that he lost his recently to Covid. 08/13: No surg plans, to wear brace for 2 weeks and follow in neurosurg office 08/14: pain is too severe for him to get up without assist, may need skilled 08/15: Afebrile. No O2 needs. He is steered still tearful about the loss of his after 55 years of marriage. Frustrated by his diagnosis of COVID-19 despite having previously convalesced 11/02/2019 and had both moderna vaccines. Pain is better controlled. 08/16: Afebrile. No O2 needs breathing improved. Pain is controlled. Able to sit up in bed and feels he may be up to working with therapy for longer sessions. Frustrated about his limited rehab options given his 19 PCR testing returned positive. Still grieving the loss of his . 08/17: Afebrile. He is feeling a little stronger. Pain is controlled. Repeat COVID-19 PCR again positive. Asymptomatic with regard to this. Therapy recommends acute rehab. Still having pain with transitioning as well as with coughing sneezing and sneezing. When he sitting still his pain is 1-2 out of 10. No significant shortness of breath. No O2 requirements. He is amenable to going to acute rehab and hopefully will help availability in the next 48 hours. He continues to make some progress. Plan: Acute rehab referral Continue steroids for total of 10 days, Continue Vit. C, D and zinc DVT/GI PPX :Eliquis Vitals/I&O Vitals/I&O: Vital Signs Date Time Temp Pulse Resp B/P (MAP) Pulse Ox O2 Delivery O2 Flow Rate FiO2 08/18/20 09:24 65 170/100 08/18/20 07:00 96.9 18 96 Room Air 96.9 I & O 0 08/17/20 08/17/20 08/18/20 15:00 23:00 07:00 Intake Total 120 ml 340 ml Output Total 150 ml Balance -30 ml 340 ml Physical Exam General: Alert, Oriented X3, Cooperative, No acute distress Heart: Other (irregularly irregular) Lungs: Clear Abdomen: Normal bowel sounds, Soft Extremities: No cyanosis, Other (1+ bilateral LE pitting edema) Skin: No breakdown, No significant lesion Comment Review of Relevant I have reviewed the following items brooks (where applicable) has been applied. Justifications for Admission Other Justification SOULEYMANE LEVIN MD Aug 18, 2020 11:51
[2020-08-18 15:00] VITALS: BP 129/75
[2020-08-18 19:00] VITALS: BP 138/82
[2020-08-18] MEDS: PSYLLIUM HUSK (SUGAR FREE) 1 PKT PACKET PO SCH (20:24)
[2020-08-18] MEDS: PATCH REMOVAL. MC SCH (20:24)
[2020-08-18 23:00] VITALS: BP 142/75
[2020-08-19 03:00] VITALS: BP 142/83
[2020-08-19 07:00] VITALS: BP 152/81
[2020-08-19 08:11] LABS: BASO % 1 % (0-3); EOS % 1 % (0-3); HEMATOCRIT 35.1 % (39.0-53.0); HEMOGLOBIN 11.1 g/dL (13.0-17.5); LYMPH # 2.3 x10^3/uL (1.0-4.8); LYMPH % 31 % (24-48); MEAN CORPUSCULAR HEMOGLOBIN 23 pg (25-35); MEAN CORPUSCULAR HGB CONC 32 g/dL (31-37); MEAN CORPUSCULAR VOLUME 73 fL (79-100); MONO # 0.5 x10^3/uL (0.0-1.1); MONO % 7 % (0-9); NEUT # 4.5 x10^3/uL (1.8-7.7); NEUT % 61 % (31-73); PLATELET COUNT 203 x10^3/uL (140-400); RED BLOOD COUNT 4.78 x10^6/uL (4.30-5.70); WHITE BLOOD COUNT 7.4 x10^3/uL (4.0-11.0)
[2020-08-19 08:21] LABS: ALBUMIN 2.8 g/dL (3.4-5.0); CREATININE 1.1 mg/dL (0.7-1.3); GFR 64.9; POTASSIUM 3.3 mmol/L (3.5-5.1); TOTAL BILIRUBIN 0.8 mg/dL (0.2-1.0); TOTAL PROTEIN 5.6 g/dL (6.4-8.2)
[2020-08-19] MEDS: LIDOCAINE (700MG/PATCH) PATCH. TD SCH ×2 (09:00→12:54)
[2020-08-19] MEDS: POLYETHYLENE GLYCOL 3350 17 GM PACKET. PO SCH ×2 (09:00→12:54)
[2020-08-19] MEDS: DOCUSATE SODIUM 100 MG CAPSULE. PO SCH ×2 (09:00→12:53)
[2020-08-19] MEDS: GABAPENTIN 300 MG CAPSULE. PO SCH ×3 (09:00→21:30)
--- NOTE | 2020-08-19 09:43 | PDOC ---
PROGRESS NOTES Date of Service DATE: 08/19/20 TIME: 09:42 Subjective Subjective No new complaints. Objective Objective Vital Signs Date Time Temp Pulse Resp B/P (MAP) Pulse Ox O2 Delivery O2 Flow Rate FiO2 08/19/20 07:00 51 17 152/81 (104) 97 Room Air 08/19/20 03:00 98.4 98.4 08/17/20 03:00 4.0 Intake and Output 08/19/20 07:00 Intake Total 840 ml Balance 840 ml Intake Oral 840 ml # Voids 5 # Bowel Movements 2 Physical Exam Physical Exam He continues to do well with mobility and plans for him to got to SNF tomorrow. Plan Plan of Care Agree with plans. Comment Review of Relevant I have reviewed the following items brooks (where applicable) has been applied. Labs Laboratory Tests Test 08/19/20 06:45 White Blood Count 7.4 x10^3/uL (4.0-11.0) Red Blood Count 4.78 x10^6/uL (4.30-5.70) Hemoglobin 11.1 g/dL (13.0-17.5) Hematocrit 35.1 % (39.0-53.0) Mean Corpuscular Volume 73 fL (79-100) Mean Corpuscular Hemoglobin 23 pg (25-35) Mean Corpuscular Hemoglobin Concent 32 g/dL (31-37) Red Cell Distribution Width 17.0 % (11.5-14.5) Platelet Count 203 x10^3/uL (140-400) Neutrophils (%) (Auto) 61 % (31-73) Lymphocytes (%) (Auto) 31 % (24-48) Monocytes (%) (Auto) 7 % (0-9) Eosinophils (%) (Auto) 1 % (0-3) Basophils (%) (Auto) 1 % (0-3) Neutrophils # (Auto) 4.5 x10^3/uL (1.8-7.7) Lymphocytes # (Auto) 2.3 x10^3/uL (1.0-4.8) Monocytes # (Auto) 0.5 x10^3/uL (0.0-1.1) Eosinophils # (Auto) 0.0 x10^3/uL (0.0-0.7) Basophils # (Auto) 0.0 x10^3/uL (0.0-0.2) Sodium Level 148 mmol/L (136-145) Potassium Level 3.3 mmol/L (3.5-5.1) Chloride Level 110 mmol/L (98-107) Carbon Dioxide Level 32 mmol/L (21-32) Anion Gap 6 (6-14) Blood Urea Nitrogen 18 mg/dL (8-26) Creatinine 1.1 mg/dL (0.7-1.3) Estimated GFR (Cockcroft-Gault) 64.9 BUN/Creatinine Ratio 16 (6-20) Glucose Level 82 mg/dL (70-99) Calcium Level 8.0 mg/dL (8.5-10.1) Total Bilirubin 0.8 mg/dL (0.2-1.0) Aspartate Amino Transf (AST/SGOT) 15 U/L (15-37) Alanine Aminotransferase (ALT/SGPT) 24 U/L (16-63) Alkaline Phosphatase 79 U/L (46-116) Total Protein 5.6 g/dL (6.4-8.2) Albumin 2.8 g/dL (3.4-5.0) Albumin/Globulin Ratio 1.0 (1.0-1.7) Laboratory Tests Test 08/19/20 06:45 White Blood Count 7.4 x10^3/uL (4.0-11.0) Red Blood Count 4.78 x10^6/uL (4.30-5.70) Hemoglobin 11.1 g/dL (13.0-17.5) Hematocrit 35.1 % (39.0-53.0) Mean Corpuscular Volume 73 fL (79-100) Mean Corpuscular Hemoglobin 23 pg (25-35) Mean Corpuscular Hemoglobin Concent 32 g/dL (31-37) Red Cell Distribution Width 17.0 % (11.5-14.5) Platelet Count 203 x10^3/uL (140-400) Neutrophils (%) (Auto) 61 % (31-73) Lymphocytes (%) (Auto) 31 % (24-48) Monocytes (%) (Auto) 7 % (0-9) Eosinophils (%) (Auto) 1 % (0-3) Basophils (%) (Auto) 1 % (0-3) Neutrophils # (Auto) 4.5 x10^3/uL (1.8-7.7) Lymphocytes # (Auto) 2.3 x10^3/uL (1.0-4.8) Monocytes # (Auto) 0.5 x10^3/uL (0.0-1.1) Eosinophils # (Auto) 0.0 x10^3/uL (0.0-0.7) Basophils # (Auto) 0.0 x10^3/uL (0.0-0.2) Sodium Level 148 mmol/L (136-145) Potassium Level 3.3 mmol/L (3.5-5.1) Chloride Level 110 mmol/L (98-107) Carbon Dioxide Level 32 mmol/L (21-32) Anion Gap 6 (6-14) Blood Urea Nitrogen 18 mg/dL (8-26) Creatinine 1.1 mg/dL (0.7-1.3) Estimated GFR (Cockcroft-Gault) 64.9 BUN/Creatinine Ratio 16 (6-20) Glucose Level 82 mg/dL (70-99) Calcium Level 8.0 mg/dL (8.5-10.1) Total Bilirubin 0.8 mg/dL (0.2-1.0) Aspartate Amino Transf (AST/SGOT) 15 U/L (15-37) Alanine Aminotransferase (ALT/SGPT) 24 U/L (16-63) Alkaline Phosphatase 79 U/L (46-116) Total Protein 5.6 g/dL (6.4-8.2) Albumin 2.8 g/dL (3.4-5.0) Albumin/Globulin Ratio 1.0 (1.0-1.7) Medications Current Medications Hydromorphone HCl (Dilaudid) 2 mg PRN Q2HR PRN IVP PAIN Last administered on 08/13/20 19:27; Start 08/08/20 at 21:45 Acetaminophen/ Hydrocodone Bitart (Lortab 10/325) 1 tab PRN Q6HRS PRN PO MODERATE-SEVERE PAIN Last administered on 08/13/20 20:01; Start 08/08/20 at 21:45 Sodium Chloride 1,000 ml @ 45 mls/hr [id number] IV Last administered on 08/14/20at 17:14; Start 08/08/20 at 21:45; Stop 08/15/20 at 07:50; Status DC Gabapentin (Neurontin) 600 mg TID PO Last administered on 08/18/20 20:39; Start 08/08/20 at 22:00 Lidocaine (Lidoderm) 2 patch DAILY TD Last administered on 08/17/20 10:36; Sta rt 08/09/20 at 10:30 Miscellaneous (Lidoderm Patch Removal) 1 ea QHS MC Last administered on 08/18/20 20:24; Start 08/09/20 at 21:00 Polyethylene Glycol (miraLAX PACKET) 17 gm 1X ONCE PO ; Start 08/10/20 at 13:00; Stop 08/10/20 at 13:07; Status DC Polyethylene Glycol (miraLAX PACKET) 17 gm DAILY PO Last administered on 08/17/20 10:36; Start 08/11/20 at 09:00 Docusate Sodium (Colace) 100 mg DAILY PO Last administered on 08/17/20 10:36; Start 08/11/20 at 09:00 Albuterol Sulfate (Ventolin Neb Soln) 2.5 mg PRN Q4HRS PRN NEB SHORTNESS OF BREATH Last administered on 08/12/20 03:10; Start 08/11/20 at 03:15; Stop 08/13/20 at 02:47; Status DC Lorazepam (Ativan Inj) 0.5 mg PRN Q4HRS PRN IVP ANXIETY / AGITATION Last administered on 08/12/20 20:20; Start 08/11/20 at 03:15 Metoprolol Succinate (Toprol Xl) 12.5 mg DAILY PO Last administered on 08/18/20 09:24; Start 08/11/20 at 15:00 Apixaban (Eliquis) 5 mg BID PO Last administered on 08/18/20 20:39; Start 08/12/20 at 09:00 Dexamethasone (Decadron) 6 mg DAILYWBKFT PO Last administered on 08/18/20 09:23; Start 08/12/20 at 17:30; Stop 08/21/20 at 08:01 Ascorbic Acid (Vitamin C) 500 mg DAILY PO Last administered on 08/18/20 09:23; Start 08/12/20 at 17:30 Vitamin D (Vitamin D3) 1,000 unit DAILY PO Last administered on 08/18/20at 09:24; Start 08/12/20 at 17:30 Zinc Sulfate (Orazinc) 220 mg DAILY PO Last administered on 08/18/20at 09:24; Start 08/12/20 at 17:30 Albuterol Sulfate (Ventolin Hfa) 2 puff PRN Q4HRS PRN INH SHORTNESS OF BREATH Last administered on 08/13/20at 02:51; Start 08/13/20 at 03:00 Info (Anti-Coagulation Monitoring By Pharmacy) 1 each PRN DAILY PRN MC PER PROTOCOL Last administered on 08/14/20at 13:51; Start 08/13/20 at 12:30 Iohexol (Omnipaque 350 Mg/ml) 100 ml 1X ONCE IV ; Start 08/15/20 at 08:00; Stop 08/15/20 at 08:01; Status DC Info (CONTRAST GIVEN -- Rx MONITORING) 1 each PRN DAILY PRN MC SEE COMMENTS; Start 08/15/20 at 07:30; Stop 08/17/20 at 07:29; Status Cancel Acetaminophen (Tylenol) 650 mg PRN Q6HRS PRN PO MILD PAIN / TEMP > 100.3'F; Start 08/15/20 at 08:00 Hydralazine HCl (Apresoline Inj) 10 mg PRN Q4HRS PRN IVP ELEVATED BP, SEE COMMENTS; Start 08/15/20 at 08:00 Psyllium Hydrophilic Mucilloid (Metamucil Fiber Packet) 1 pkt QHS PO Last administered on 08/16/20at 20:54; Start 08/15/20 at 21:00 Guaifenesin (Robitussin Dm) 10 ml PRN Q6HRS PRN PO COUGH; Start 08/15/20 at 08:00 Ondansetron HCl (Zofran) 4 mg PRN Q4HRS PRN IVP NAUSEA/VOMITING; Start 08/15/20 at 08:00 Olanzapine (ZyPREXA ZYDIS) 5 mg PRN BID PRN PO ANXIETY / AGITATION; Start 08/15/20 at 08:00 Iohexol (Omnipaque 350 Mg/ml) 100 ml 1X ONCE IV ; Start 08/16/20 at 11:00; Stop 08/16/20 at 11:01; Status DC Info (CONTRAST GIVEN -- Rx MONITORING) 1 each PRN DAILY PRN MC SEE COMMENTS; Start 08/16/20 at 11:00; Stop 08/18/20 at 10:59; Status DC Active Scripts Active Reported Eliquis (Apixaban) 5 Mg Tablet 5 Mg PO BID Neurontin (Gabapentin) 600 Mg Tablet 600 Mg PO TID Vitals/I & O Vital Sign - Last 24 Hours 08/18/20 08/18/20 08/18/20 08/18/20 11:00 15:00 19:00 19:00 Temp 95.8 96.2 97.2 95.8 96.2 97.2 Pulse 56 68 61 Resp 18 18 16 B/P (MAP) 122/73 (89) 129/75 (93) 138/82 (100) Pulse Ox 97 100 98 O2 Delivery Room Air Room Air Room Air Room Air 08/18/20 08/19/20 08/19/20 23:00 03:00 07:00 Temp 96.9 98.4 96.9 98.4 Pulse 61 82 51 Resp 16 20 17 B/P (MAP) 142/75 (97) 142/83 (102) 152/81 (104) Pulse Ox 96 98 97 O2 Delivery Room Air Room Air Room Air Intake and Output 08/18/20 08/18/20 08/19/20 15:00 23:00 07:00 Intake Total 600 ml 240 ml Balance 600 ml 240 ml Justifications for Admission Other Justification EMANUEL KUHN MD Aug 19, 2020 09:43
[2020-08-19] MEDS ORDERED: CONTRAST GIVEN. MC PRN (10:30)
[2020-08-19] MEDS ORDERED: IOHEXOL 350 MG/ML 100 ML VIAL. IV ONE (10:30)
[2020-08-19 11:00] VITALS: BP 120/70
[2020-08-19] MEDS: ANTI-COAG MONITOR BY PHARMACY. MC PRN (11:59)
--- NOTE | 2020-08-19 12:15 | PDOC ---
[employer] PROGRESS NOTE Date of Service DOS: DATE: 08/19/20 TIME: 12:14 Chief Complaint Chief Complaint Assessment/Plan fall, acute neck pain MRI back shows acute t7 transferse fracture, T7 vertebral body fracture. - Transversely oriented fracture involving the T7 vertebral body without significant retropulsion or height loss. posterior epidural hematoma resulting in mild mass effect on the thecal sac without compression of the cord. No cord signal alteration is identified. Afib, on eliquis, chronic diastolic CHF, restarted Eliquis obese, BMI 42 Acute dysphagia Hallucinations H/O Prostate cancer. COVID-19 + - with history of previous COVID infection in 11/01 and received both doses of Moderna vaccine since then. needs to wear brace when up except for when showering neurosurgery follow in 2 weeks with thoracic spine films PT May need to go to rehab/ SNF d/w rn Pending CT of the head and neck today Echo: The LV EF is about 55%. The LA is mildly enlarged. The aortic root and the proximal ascending aorta are mildly enlarged. Mild MR and mild TR noted. The PA systolic pressure is mildly elevated. STRESS TEST FINDINGS: 03/04/2017 [facility] Pharmacological Stress Electrocardiogram: The patient's resting heart rate was 65 bpm and the resting blood pressure was 168/68. The patients peak stress heart rate was 91 bpm and the peak stress blood pressure was 158/87. His resting ECG demonstrated atrial fibrillation with a heart rate of 53, there are nonspecific T-wave changes noted. During pharmacologic stress he complained of shortness of breath. This resolved during the recovery phase. During the stress and the recovery phase he had occasional PVCs. He remained in atrial fib throughout. There is no ST segment changes noted. Conclusion: Pharmacologic stress ECG is negative for ischemia. 39 min pt exam, chart review, > 50% of time spent with exam, chart review, pt care coordination History of Present Illness History of Present Illness Mr Donovan is a 75yo M w/ PMHx Afib, HTN transferred from [facility] after a fall while gardening where he sustained a T7 fracture. 08/11: COVID 19 returned positive 08/12: No OE, afebrile. D/w speech therapist same patient did have some phonation after sips of water and coughing spells after drinking water. Cardiology noted hallucinations. Currently we are pending a CT head of neck. 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 Patient was bawling after stating that he lost his recently to Covid. 08/13: No surg plans, to wear brace for 2 weeks and follow in neurosurg office 08/14: pain is too severe for him to get up without assist, may need skilled 08/15: Afebrile. No O2 needs. He is steered still tearful about the loss of his after 55 years of marriage. Frustrated by his diagnosis of COVID-19 despite having previously convalesced 11/02/2019 and had both moderna vaccines. Pain is better controlled. 08/16: Afebrile. No O2 needs breathing improved. Pain is controlled. Able to sit up in bed and feels he may be up to working with therapy for longer sessions. Frustrated about his limited rehab options given his 19 PCR testing returned positive. Still grieving the loss of his . 08/17: Afebrile. He is feeling a little stronger. Pain is controlled. Repeat COVID-19 PCR again positive. Asymptomatic with regard to this. Therapy recommends acute rehab. 08/18: Still having pain with transitioning as well as with coughing sneezing and sneezing. When he sitting still his pain is 1-2 out of 10. No significant shortness of breath. No O2 requirements. He is amenable to going to acute rehab and hopefully will help availability in the next 48 hours. He continues to make some progress. Pain improved to the point where he is able to lay flat had a CT chest that was ordered several days ago. Still no O2 requirements. Still pretty weak and needing some assistance. Still wants to go to acute rehab. Potassium 3.3 today on oral replacement. Plan: Acute rehab referral Continue steroids for total of 10 days, Continue Vit. C, D and zinc DVT/GI PPX :Eliquis Vitals/I&O Vitals/I&O: Vital Signs Date Time Temp Pulse Resp B/P (MAP) Pulse Ox O2 Delivery O2 Flow Rate FiO2 08/19/20 07:00 51 17 152/81 (104) 97 Room Air 08/19/20 03:00 98.4 98.4 I & O 08/18/20 08/18/20 08/19/20 15:00 23:00 07:00 Intake Total 600 ml 240 ml Balance 600 ml 240 ml Physical Exam General: Alert, Oriented X3, Cooperative, No acute distress Heart: Other (irregularly irregular) Lungs: Clear Abdomen: Normal bowel sounds, Soft Extremities: No cyanosis, Other (1+ bilateral LE pitting edema) Skin: No breakdown, No significant lesion Labs Labs: Laboratory Tests Test 08/19/20 06:45 White Blood Count 7.4 x10^3/uL (4.0-11.0) Red Blood Count 4.78 x10^6/uL (4.30-5.70) Hemoglobin 11.1 g/dL (13.0-17.5) Hematocrit 35.1 % (39.0-53.0) Mean Corpuscular Volume 73 fL (79-100) Mean Corpuscular Hemoglobin 23 pg (25-35) Mean Corpuscular Hemoglobin Concent 32 g/dL (31-37) Red Cell Distribution Width 17.0 % (11.5-14.5) Platelet Count 203 x10^3/uL (140-400) Neutrophils (%) (Auto) 61 % (31-73) Lymphocytes (%) (Auto) 31 % (24-48) Monocytes (%) (Auto) 7 % (0-9) Eosinophils (%) (Auto) 1 % (0-3) Basophils (%) (Auto) 1 % (0-3) Neutrophils # (Auto) 4.5 x10^3/uL (1.8-7.7) Lymphocytes # (Auto) 2.3 x10^3/uL (1.0-4.8) Monocytes # (Auto) 0.5 x10^3/uL (0.0-1.1) Eosinophils # (Auto) 0.0 x10^3/uL (0.0-0.7) Basophils # (Auto) 0.0 x10^3/uL (0.0-0.2) Sodium Level 148 mmol/L (136-145) Potassium Level 3.3 mmol/L (3.5-5.1) Chloride Level 110 mmol/L (98-107) Carbon Dioxide Level 32 mmol/L (21-32) Anion Gap 6 (6-14) Blood Urea Nitrogen 18 mg/dL (8-26) Creatinine 1.1 mg/dL (0.7-1.3) Estimated GFR (Cockcroft-Gault) 64.9 BUN/Creatinine Ratio 16 (6-20) Glucose Level 82 mg/dL (70-99) Calcium Level 8.0 mg/dL (8.5-10.1) Total Bilirubin 0.8 mg/dL (0.2-1.0) Aspartate Amino Transf (AST/SGOT) 15 U/L (15-37) Alanine Aminotransferase (ALT/SGPT) 24 U/L (16-63) Alkaline Phosphatase 79 U/L (46-116) Total Protein 5.6 g/dL (6.4-8.2) Albumin 2.8 g/dL (3.4-5.0) Albumin/Globulin Ratio 1.0 (1.0-1.7) Comment Review of Relevant I have reviewed the following items brooks (where applicable) has been applied. Medications: Current Medications Medications (Trade) Dose Ordered Sig/Alon Route PRN Reason Start Time Stop Time Status Last Admin Dose Admin Iohexol (Omnipaque 350 Mg/ml) 100 ml 1X ONCE IV 08/19/20 10:30 08/19/20 10:31 DC 08/19/20 11:15 Justifications for Admission Other Justification SOULEYMANE LEVIN MD Aug 19, 2020 12:15
[2020-08-19] MEDS ORDERED: POTASSIUM CHLORIDE 20 MEQ TABLET.ER. PO ONE (12:30)
[2020-08-19] MEDS: ASCORBIC ACID 500 MG TABLET PO SCH (12:51)
[2020-08-19] MEDS: ZINC SULFATE 220 MG CAPSULE. PO SCH (12:52)
[2020-08-19] MEDS: CHOLECALCIFEROL (VITAMIN D3) 1,000 UNIT TABLET PO SCH (12:52)
[2020-08-19] MEDS: APIXABAN 5 MG TABLET. PO SCH ×2 (12:52→21:30)
[2020-08-19] MEDS: METOPROLOL SUCC 24HR ER 25 MG TAB.ER.24H. PO SCH (12:53)
[2020-08-19] MEDS: DEXAMETHASONE 4 MG TABLET PO SCH (12:56)
--- NOTE | 2020-08-19 14:37 | RAD ---
PQRS Compliance Statement: One or more of the following individualized dose reduction techniques were utilized for this examinat ion: 1. Automated exposure control 2. Adjustment of the mA and/or kV according to patient size 3. Use of iterative reconstruction technique Exam performed: CT pulmonary angiogram chest HISTORY: Hypoxia. DATE OF SERVICE: March 2020. COMPARISON: Chest from 12/31/2020. TECHNIQUE: Contiguous helical acquisitions are obtained through the chest during intravenous administ ration of IV contrast. Sagittal and coronal MIP images are obtained and reviewed. FINDINGS: Structures at the thoracic inlet including both lobes of the gland appear grossly normal. Neck and in trathoracic great vessels appear grossly normal. There is adequate opacification of the pulmonary art eries. No filling defects to suggest pulmonary embolism is noted. Heart size is normal without perica rdial effusion. Interrogation of lungs demonstrates linear bibasilar opacities likely atelectasis. There is no pleura l effusion or pneumothorax. There are spondylotic changes involving the thoracic spine. Upper abdomin al structures demonstrate no definite abnormality. IMPRESSION: Study is negative for pulmonary embolism. Linear bibasilar opacities in both lung bases likely atelectasis. Electronically signed by: Lazara Dior MD (08/19/2020 2:34 PM) [facility]
[2020-08-19 15:00] VITALS: BP 120/70
[2020-08-19 19:25] VITALS: BP 125/72
[2020-08-19] MEDS: PATCH REMOVAL. MC SCH (21:00)
[2020-08-19] MEDS: PSYLLIUM HUSK (SUGAR FREE) 1 PKT PACKET PO SCH (21:30)
[2020-08-19 23:11] VITALS: BP 138/81
[2020-08-20 03:57] VITALS: BP 138/85
[2020-08-20 07:00] VITALS: BP 147/87
[2020-08-20] MEDS: CHOLECALCIFEROL (VITAMIN D3) 1,000 UNIT TABLET PO SCH (08:41)
[2020-08-20] MEDS: APIXABAN 5 MG TABLET. PO SCH (08:41)
[2020-08-20] MEDS: ASCORBIC ACID 500 MG TABLET PO SCH (08:41)
[2020-08-20] MEDS: DEXAMETHASONE 4 MG TABLET PO SCH (08:41)
[2020-08-20] MEDS: DOCUSATE SODIUM 100 MG CAPSULE. PO SCH (08:41)
[2020-08-20] MEDS: GABAPENTIN 300 MG CAPSULE. PO SCH ×2 (08:41→13:28)
[2020-08-20] MEDS: ZINC SULFATE 220 MG CAPSULE. PO SCH (08:44)
[2020-08-20] MEDS: POLYETHYLENE GLYCOL 3350 17 GM PACKET. PO SCH (08:44)
[2020-08-20] MEDS: METOPROLOL SUCC 24HR ER 25 MG TAB.ER.24H. PO SCH (08:57)
[2020-08-20] MEDS: LIDOCAINE (700MG/PATCH) PATCH. TD SCH (09:00)
--- NOTE | 2020-08-20 09:07 | PDOC ---
[employer] PROGRESS NOTE Date of Service DOS: DATE: 08/20/20 TIME: 09:06 Chief Complaint Chief Complaint Assessment/Plan fall, acute neck pain MRI back shows acute t7 transferse fracture, T7 vertebral body fracture. - Transversely oriented fracture involving the T7 vertebral body without significant retropulsion or height loss. posterior epidural hematoma resulting in mild mass effect on the thecal sac without compression of the cord. No cord signal alteration is identified. Afib, on eliquis, chronic diastolic CHF, restarted Eliquis obese, BMI 42 Acute dysphagia Hallucinations H/O Prostate cancer. COVID-19 + - with history of previous COVID infection in 11/01 and received both doses of Moderna vaccine since then. needs to wear brace when up except for when showering neurosurgery follow in 2 weeks with thoracic spine films PT May need to go to rehab/ SNF d/w rn Pending CT of the head and neck today Echo: The LV EF is about 55%. The LA is mildly enlarged. The aortic root and the proximal ascending aorta are mildly enlarged. Mild MR and mild TR noted. The PA systolic pressure is mildly elevated. STRESS TEST FINDINGS: 03/04/2017 [facility] Pharmacological Stress Electrocardiogram: The patient's resting heart rate was 65 bpm and the resting blood pressure was 168/68. The patients peak stress heart rate was 91 bpm and the peak stress blood pressure was 158/87. His resting ECG demonstrated atrial fibrillation with a heart rate of 53, there are nonspecific T-wave changes noted. During pharmacologic stress he complained of shortness of breath. This resolved during the recovery phase. During the stress and the recovery phase he had occasional PVCs. He remained in atrial fib throughout. There is no ST segment changes noted. Conclusion: Pharmacologic stress ECG is negative for ischemia. 39 min pt exam, chart review, > 50% of time spent with exam, chart review, pt care coordination History of Present Illness History of Present Illness Mr Donovan is a 75yo M w/ PMHx Afib, HTN transferred from [facility] after a fall while gardening where he sustained a T7 fracture. 08/11: COVID 19 returned positive 08/12: No OE, afebrile. D/w speech therapist same patient did have some phonation after sips of water and coughing spells after drinking water. Cardiology noted hallucinations. Currently we are pending a CT head of neck. 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 Patient was bawling after stating that he lost his recently to Covid. 08/13: No surg plans, to wear brace for 2 weeks and follow in neurosurg office 08/14: pain is too severe for him to get up without assist, may need skilled 08/15: Afebrile. No O2 needs. He is steered still tearful about the loss of his after 55 years of marriage. Frustrated by his diagnosis of COVID-19 despite having previously convalesced 11/02/2019 and had both moderna vaccines. Pain is better controlled. 08/16: Afebrile. No O2 needs breathing improved. Pain is controlled. Able to sit up in bed and feels he may be up to working with therapy for longer sessions. Frustrated about his limited rehab options given his 19 PCR testing returned positive. Still grieving the loss of his . 08/17: Afebrile. He is feeling a little stronger. Pain is controlled. Repeat COVID-19 PCR again positive. Asymptomatic with regard to this. Therapy recommends acute rehab. 08/18: Having pain with transitioning as well as with coughing sneezing and sneezing. Sitting still his pain is 1-2 out of 10. No shortness of breath. No O2 requirements. He is amenable to going to acute rehab and hopefully will help availability in the next 48 hours. 08/19: Pain improved to the point where he is able to lay flat had a CT chest that was ordered several days ago. Still no O2 requirements. Still pretty weak and needing some assistance. Still wants to go to acute rehab. Potassium 3.3 today on oral replacement. Pain stable. CTPA with no acute abnormalities. Weak and needing assistance. Going to acute rehab today Plan: Acute rehab referral Continue steroids for total of 1 additional day Continue Vit. C, D and zinc DVT/GI PPX :Eliquis Vitals/I&O Vitals/I&O: Vital Signs Date Time Temp Pulse Resp B/P (MAP) Pulse Ox O2 Delivery O2 Flow Rate FiO2 08/20/20 08:57 62 147/87 08/20/20 03:57 97.7 20 97 Room Air 97.7 I & O 08/19/20 08/19/20 08/20/20 15:00 23:00 07:00 Intake Total 0 ml 540 ml 0 ml Output Total 0 ml Balance 0 ml 540 ml 0 ml Physical Exam General: Alert, Oriented X3, Cooperative, No acute distress Heart: Other (irregularly irregular) Lungs: Clear Abdomen: Normal bowel sounds, Soft Extremities: No cyanosis, Other (1+ bilateral LE pitting edema) Skin: No breakdown, No significant lesion Comment Review of Relevant I have reviewed the following items brooks (where applicable) has been applied. Medications: Current Medications Medications (Trade) Dose Ordered Sig/Alon Route PRN Reason Start Time Stop Time Status Last Admin Dose Admin Iohexol (Omnipaque 350 Mg/ml) 100 ml 1X ONCE IV 08/19/20 10:30 08/19/20 10:31 DC 08/19/20 11:15 Potassium Chloride (Klor-Con) 40 meq 1X ONCE PO 08/19/20 12:30 08/19/20 12:31 DC 08/19/20 12:56 Justifications for Admission Other Justification SOULEYMANE LEVIN MD Aug 20, 2020 09:07
[2020-08-20] MEDS: ANTI-COAG MONITOR BY PHARMACY. MC PRN (09:33)
[2020-08-20] MEDS ORDERED: CHOL10004 PO (10:11)
[2020-08-20] MEDS ORDERED: ZINC220C5 PO (10:11)
[2020-08-20] MEDS ORDERED: METO-239 PO (10:11)
[2020-08-20] MEDS ORDERED: PSYL3.4P PO (10:11)
[2020-08-20] MEDS ORDERED: ACET325T21 PO (10:11)
[2020-08-20] MEDS ORDERED: ASCO500T4 PO (10:11)
[2020-08-20] MEDS ORDERED: DEXA4TAB63 PO (10:11)
[2020-08-20] MEDS ORDERED: POLY17PO52 PO (10:11)
--- NOTE | 2020-08-20 10:11 | PDOC ---
PROGRESS NOTES Date of Service DATE: 08/20/20 TIME: 10:06 Subjective Subjective No new complaints. Objective Objective Vital Signs Date Time Temp Pulse Resp B/P (MAP) Pulse Ox O2 Delivery O2 Flow Rate FiO2 08/20/20 08:57 62 147/87 08/20/20 07:00 97.7 17 99 Room Air 97.7 08/17/20 03:00 4.0 Intake and Output 08/20/20 07:00 Intake Total 540 ml Output Total 0 ml Balance 540 ml Intake Oral 540 ml Output Urine Total 0 ml # Voids 4 # Bowel Movements 1 Physical Exam Physical Exam He is alert,sitting at edge of bed and dressing and he denies any significant back or right lower rib cage area pain.He did walk for 10' with roller walker on level surface. Plan Plan of Care Agree with plans for SNF transfer for a short time period. Comment Review of Relevant I have reviewed the following items brooks (where applicable) has been applied. Labs Laboratory Tests Test 08/19/20 06:45 White Blood Count 7.4 x10^3/uL (4.0-11.0) Red Blood Count 4.78 x10^6/uL (4.30-5.70) Hemoglobin 11.1 g/dL (13.0-17.5) Hematocrit 35.1 % (39.0-53.0) Mean Corpuscular Volume 73 fL (79-100) Mean Corpuscular Hemoglobin 23 pg (25-35) Mean Corpuscular Hemoglobin Concent 32 g/dL (31-37) Red Cell Distribution Width 17.0 % (11.5-14.5) Platelet Count 203 x10^3/uL (140-400) Neutrophils (%) (Auto) 61 % (31-73) Lymphocytes (%) (Auto) 31 % (24-48) Monocytes (%) (Auto) 7 % (0-9) Eosinophils (%) (Auto) 1 % (0-3) Basophils (%) (Auto) 1 % (0-3) Neutrophils # (Auto) 4.5 x10^3/uL (1.8-7.7) Lymphocytes # (Auto) 2.3 x10^3/uL (1.0-4.8) Monocytes # (Auto) 0.5 x10^3/uL (0.0-1.1) Eosinophils # (Auto) 0.0 x10^3/uL (0.0-0.7) Basophils # (Auto) 0.0 x10^3/uL (0.0-0.2) Sodium Level 148 mmol/L (136-145) Potassium Level 3.3 mmol/L (3.5-5.1) Chloride Level 110 mmol/L (98-107) Carbon Dioxide Level 32 mmol/L (21-32) Anion Gap 6 (6-14) Blood Urea Nitrogen 18 mg/dL (8-26) Creatinine 1.1 mg/dL (0.7-1.3) Estimated GFR (Cockcroft-Gault) 64.9 BUN/Creatinine Ratio 16 (6-20) Glucose Level 82 mg/dL (70-99) Calcium Level 8.0 mg/dL (8.5-10.1) Total Bilirubin 0.8 mg/dL (0.2-1.0) Aspartate Amino Transf (AST/SGOT) 15 U/L (15-37) Alanine Aminotransferase (ALT/SGPT) 24 U/L (16-63) Alkaline Phosphatase 79 U/L (46-116) Total Protein 5.6 g/dL (6.4-8.2) Albumin 2.8 g/dL (3.4-5.0) Albumin/Globulin Ratio 1.0 (1.0-1.7) Medications Current Medications Hydromorphone HCl (Dilaudid) 2 mg PRN Q2HR PRN IVP PAIN Last administered on 08/13/20 19:27; Start 08/08/20 at 21:45 Acetaminophen/ Hydrocodone Bitart (Lortab 10/325) 1 tab PRN Q6HRS PRN PO MODERATE-SEVERE PAIN Last administered on 08/13/20 20:01; Start 08/08/20 at 21:45 Sodium Chloride 1,000 ml @ 45 mls/hr [id number] IV Last administered on 08/14/20 17:14; Start 08/08/20 at 21:45; Stop 08/15/20 at 07:50; Status DC Gabapentin (Neurontin) 600 mg TID PO Last administered on 08/20/20 08:41; Start 08/08/20 at 22:00 Lidocaine (Lidoderm) 2 patch DAILY TD Last administered on 08/17/20 10:36; Start 08/09/20 at 10:30 Miscellaneous (Lidoderm Patch Removal) 1 ea QHS MC Last administered on 08/18/20 20:24; Start 08/09/20 at 21:00 Polyethylene Glycol (miraLAX PACKET) 17 gm 1X ONCE PO ; Start 08/10/20 at 13:00; Stop 08/10/20 at 13:07; Status DC Polyethylene Glycol (miraLAX PACKET) 17 gm DAILY PO Last administered on 08/20/20 08:44; Start 08/11/20 at 09:00 Docusate Sodium (Colace) 100 mg DAILY PO Last administered on 08/20/20 08:41; Start 08/11/20 at 09:00 Albuterol Sulfate (Ventolin Neb Soln) 2.5 mg PRN Q4HRS PRN NEB SHORTNESS OF BREATH Last administered on 08/12/20 03:10; Start 08/11/20 at 03:15; Stop 08/13/20 at 02:47; Status DC Lorazepam (Ativan Inj) 0.5 mg PRN Q4HRS PRN IVP ANXIETY / AGITATION Last administered on 08/19/20 10:49; Start 08/11/20 at 03:15 Metoprolol Succinate (Toprol Xl) 12.5 mg DAILY PO Last administered on 08/20/20 08:57; Start 08/11/20 at 15:00 Apixaban (Eliquis) 5 mg BID PO Last administered on 08/20/20 08:41; Start 08/12/20 at 09:00 Dexamethasone (Decadron) 6 mg DAILYWBKFT PO Last administered on 08/20/20 08:41; Start 08/12/20 at 17:30; Stop 08/21/20 at 08:01 Ascorbic Acid (Vitamin C) 500 mg DAILY PO Last administered on 08/20/20 08:41; Start 08/12/20 at 17:30 Vitamin D (Vitamin D3) 1,000 unit DAILY PO Last administered on 08/20/20 08:41; Start 08/12/20 at 17:30 Zinc Sulfate (Orazinc) 220 mg DAILY PO Last administered on 08/20/20 08:44; Start 08/12/20 at 17:30 Albuterol Sulfate (Ventolin Hfa) 2 puff PRN Q4HRS PRN INH SHORTNESS OF BREATH Last administered on 08/13/20at 02:51; Start 08/13/20 at 03:00 Info (Anti-Coagulation Monitoring By Pharmacy) 1 each PRN DAILY PRN MC PER PROTOCOL Last administered on 08/20/20at 09:33; Start 08/13/20 at 12:30 Iohexol (Omnipaque 350 Mg/ml) 100 ml 1X ONCE IV ; Start 08/15/20 at 08:00; Stop 08/15/20 at 08:01; Status DC Info (CONTRAST GIVEN -- Rx MONITORING) 1 each PRN DAILY PRN MC SEE COMMENTS; Start 08/15/20 at 07:30; Stop 08/17/20 at 07:29; Status Cancel Acetaminophen (Tylenol) 650 mg PRN Q6HRS PRN PO MILD PAIN / TEMP > 100.3'F; Start 08/15/20 at 08:00 Hydralazine HCl (Apresoline Inj) 10 mg PRN Q4HRS PRN IVP ELEVATED BP, SEE COMMENTS; Start 08/15/20 at 08:00 Psyllium Hydrophilic Mucilloid (Metamucil Fiber Packet) 1 pkt QHS PO Last administered on 08/19/20at 21:30; Start 08/15/20 at 21:00 Guaifenesin (Robitussin Dm) 10 ml PRN Q6HRS PRN PO COUGH; Start 08/15/20 at 08:00 Ondansetron HCl (Zofran) 4 mg PRN Q4HRS PRN IVP NAUSEA/VOMITING; Start 08/15/20 at 08:00 Olanzapine (ZyPREXA ZYDIS) 5 mg PRN BID PRN PO ANXIETY / AGITATION Last administered on 08/19/20at 10:13; Start 08/15/20 at 08:00 Iohexol (Omnipaque 350 Mg/ml) 100 ml 1X ONCE IV ; Start 08/16/20 at 11:00; Stop 08/16/20 at 11:01; Status DC Info (CONTRAST GIVEN -- Rx MONITORING) 1 each PRN DAILY PRN MC SEE COMMENTS; Start 08/16/20 at 11:00; Stop 08/18/20 at 10:59; Status DC Iohexol (Omnipaque 350 Mg/ml) 100 ml 1X ONCE IV Last administered on 08/19/20at 11:15; Start 08/19/20 at 10:30; Stop 08/19/20 at 10:31; Status DC Info (CONTRAST GIVEN -- Rx MONITORING) 1 each PRN DAILY PRN MC SEE COMMENTS; Start 08/19/20 at 10:30; Stop 08/21/20 at 10:29 Potassium Chloride (Klor-Con) 40 meq 1X ONCE PO Last administered on 08/19/20at 12:56; Start 08/19/20 at 12:30; Stop 08/19/20 at 12:31; Status DC Active Scripts Active Reported Eliquis (Apixaban) 5 Mg Tablet 5 Mg PO BID Neurontin (Gabapentin) 600 Mg Tablet 600 Mg PO TID Vitals/I & O Vital Sign - Last 24 Hours 08/19/20 08/19/20 08/19/20 08/19/20 11:00 12:53 15:00 19:25 Temp 97.3 97.3 98.4 97.3 97.3 98.4 Pulse 64 51 64 63 Resp 18 18 18 B/P (MAP) 120/70 (87) 152/81 120/70 (87) 125/72 (89) Pulse Ox 99 94 96 O2 Delivery Room Air Room Air 08/19/20 08/19/20 08/20/20 08/20/20 20:15 23:11 03:57 07:00 Temp 97.8 97.7 97.7 97.8 97.7 97.7 Pulse 59 53 58 Resp 18 20 17 B/P (MAP) 138/81 (100) 138/85 (102) 147/87 (107) Pulse Ox 96 97 99 O2 Delivery Room Air Room Air Room Air Room Air 08/20/20 08:57 Pulse 62 B/P (MAP) 147/87 Intake and Output 08/19/20 08/19/20 08/20/20 15:00 23:00 07:00 Intake Total 0 ml 540 ml 0 ml Output Total 0 ml Balance 0 ml 540 ml 0 ml Justifications for Admission Other Justification EMANUEL KUHN MD Aug 20, 2020 10:11
--- NOTE | 2020-08-20 10:13 | SNU/HH DC ---
DISCHARGE ORDERS DISCHARGE INFORMATION: DISCHARGE DATE: Aug 20, 2020 FINAL DIAGNOSIS T7 fracture CONDITION ON DISCHARGE: Stable CODE STATUS: Code Status: Full FCI: SNF STAY <30 DAYS: Yes POST DISCHARGE ORDERS: ACTIVITY ORDERS: Resume previous activity WEIGHT BEARING STATUS: Full weight bearing DIET AFTER DISCHARGE: Cardiac WOUND/INCISION CARE: Ice to area for comfort CHECKS AFTER DISCHARGE: CHECKS AFTER DISCHARGE: Check blood press - daily TREATMENT/EQUIPMENT ORDERS: Physical Therapy For: Evalulation/Treatment Occupational Therapy For: Evaluation/Treatment DISCHARGE MEDICATIONS: Home Meds Active Scripts Cholecalciferol (Vitamin D3) (Vitamin D3 ) 25 Mcg Tablet, 1000 UNIT PO DAILY for Vit D def for 30 Days, #30 TAB Prov:SOULEYMANE LEVIN MD 08/20/20 Dexamethasone (Decadron) 4 Mg Tablet, 6 MG PO DAILYWBKFT for COVID for 1 Day, #2 TAB Prov:SOULEYMANE LEVIN MD 08/20/20 Ascorbic Acid (VITAMIN C) 500 Mg Tablet, 500 MG PO DAILY for SYEDA for 30 Days, #30 TAB Prov:SOULEYMANE LEVIN MD 08/20/20 Psyllium Husk/Aspartame (METAMUCIL FIBER SINGLES PACKET) 3.4 Gm Powd.pack, 1 PKT PO QHS for Constipation for 30 Days, #30 PKT Prov:SOULEYMANE LEVIN MD 08/20/20 Polyethylene Glycol 3350 (POLYETHYLENE GLYCOL 3350) 17 Gm Powd.pack, 17 GM PO DAILY for Constipation for 30 Days, #30 PKT Prov:SOULEYMANE LEVIN MD 08/20/20 Zinc Sulfate (Zinc Sulfate) 50 Mg Capsule, 50 MG PO DAILY for COVID for 30 Days, #30 CAP Prov:SOULEYMANE LEVIN MD 08/20/20 Acetaminophen (ACETAMINOPHEN) 325 Mg Tablet, 650 MG PO PRN Q6HRS PRN for MILD PAIN / TEMP > 100.3'F for 30 Days, #120 TAB Prov:SOULEYMANE LEVIN MD 08/20/20 Metoprolol Succinate (METOPROLOL SUCCINATE ( XL )) 25 Mg Tab.er.24h, 12.5 MG PO DAILY for CHF for 30 Days, #15 TAB.SR 2 Refills Prov:SOULEYMANE LEVIN MD 08/20/20 Lidocaine (Lidocaine PATCH ) 1 Each Adh..patch, 1 PATCH TD DAILY for back pain, #10 PATCH Prov:IDANIA TALAMANTES MD 08/10/20 Oxycodone HCl/Acetaminophen (Percocet 5-325 mg Tablet) 1 Each Tablet, 1 TAB PO PRN TID PRN for PAIN MDD 3 Tablet(s), #20 TAB 0 Refills Prov:IDANIA TALAMANTES MD 08/10/20 Reported Medications Apixaban (ELIQUIS) 5 Mg Tablet, 5 MG PO BID for afib, TAB 08/09/20 Gabapentin (NEURONTIN) 600 Mg Tablet, 600 MG PO TID for NEUROGENIC PAIN, TAB 08/08/20 SOULEYMANE LEVIN MD Aug 20, 2020 10:13
[2020-08-20 11:00] VITALS: BP 134/72
--- NOTE | 2020-08-20 12:29 | PDOC3 ---
Discharge Summary Visit Information Date of Admission: Aug 08, 2020 Date of Discharge: Aug 20, 2020 Admitting Diagnosis: T7 Fracture Final Diagnosis T7 fracture Brief Hospital Course Allergies Allergies Coded Allergies Type Severity Reaction Last Updated Verified No Known Drug Allergies 08/08/20 No Vital Signs Vital Signs Date Time Temp Pulse Resp B/P (MAP) Pulse Ox O2 Delivery O2 Flow Rate FiO2 08/20/20 11:00 97.8 56 17 134/72 (92) 97 Room Air 97.8 Lab Results Laboratory Tests Test 08/19/20 06:45 White Blood Count 7.4 x10^3/uL (4.0-11.0) Red Blood Count 4.78 x10^6/uL (4.30-5.70) Hemoglobin 11.1 g/dL (13.0-17.5) Hematocrit 35.1 % (39.0-53.0) Mean Corpuscular Volume 73 fL (79-100) Mean Corpuscular Hemoglobin 23 pg (25-35) Mean Corpuscular Hemoglobin Concent 32 g/dL (31-37) Red Cell Distribution Width 17.0 % (11.5-14.5) Platelet Count 203 x10^3/uL (140-400) Neutrophils (%) (Auto) 61 % (31-73) Lymphocytes (%) (Auto) 31 % (24-48) Monocytes (%) (Auto) 7 % (0-9) Eosinophils (%) (Auto) 1 % (0-3) Basophils (%) (Auto) 1 % (0-3) Neutrophils # (Auto) 4.5 x10^3/uL (1.8-7.7) Lymphocytes # (Auto) 2.3 x10^3/uL (1.0-4.8) Monocytes # (Auto) 0.5 x10^3/uL (0.0-1.1) Eosinophils # (Auto) 0.0 x10^3/uL (0.0-0.7) Basophils # (Auto) 0.0 x10^3/uL (0.0-0.2) Sodium Level 148 mmol/L (136-145) Potassium Level 3.3 mmol/L (3.5-5.1) Chloride Level 110 mmol/L (98-107) Carbon Dioxide Level 32 mmol/L (21-32) Anion Gap 6 (6-14) Blood Urea Nitrogen 18 mg/dL (8-26) Creatinine 1.1 mg/dL (0.7-1.3) Estimated GFR (Cockcroft-Gault) 64.9 BUN/Creatinine Ratio 16 (6-20) Glucose Level 82 mg/dL (70-99) Calcium Level 8.0 mg/dL (8.5-10.1) Total Bilirubin 0.8 mg/dL (0.2-1.0) Aspartate Amino Transf (AST/SGOT) 15 U/L (15-37) Alanine Aminotransferase (ALT/SGPT) 24 U/L (16-63) Alkaline Phosphatase 79 U/L (46-116) Total Protein 5.6 g/dL (6.4-8.2) Albumin 2.8 g/dL (3.4-5.0) Albumin/Globulin Ratio 1.0 (1.0-1.7) Brief Hospital Course Mr Donovan is a 75yo M w/ PMHx Afib, HTN transferred from [facility] after a fall while gardening where he sustained a T7 fracture. 08/11: COVID 19 returned positive 08/12: No OE, afebrile. D/w speech therapist same patient did have some phonation after sips of water and coughing spells after drinking water. Cardiology noted hallucinations. Currently we are pending a CT head of neck. 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 Patient was bawling after stating that he lost his recently to Covid. 08/13: No surg plans, to wear brace for 2 weeks and follow in neurosurg office 08/14: pain is too severe for him to get up without assist, may need skilled 08/15: Afebrile. No O2 needs. He is steered still tearful about the loss of his after 55 years of marriage. Frustrated by his diagnosis of COVID-19 despite having previously convalesced 11/02/2019 and had both moderna vaccines. Pain is better controlled. 08/16: Afebrile. No O2 needs breathing improved. Pain is controlled. Able to sit up in bed and feels he may be up to working with therapy for longer sessions. Frustrated about his limited rehab options given his 19 PCR testing returned positive. Still grieving the loss of his . 08/17: Afebrile. He is feeling a little stronger. Pain is controlled. Repeat COVID-19 PCR again positive. Asymptomatic with regard to this. Therapy recommends acute rehab. 08/18: Having pain with transitioning as well as with coughing sneezing and sneezing. Sitting still his pain is 1-2 out of 10. No shortness of breath. No O2 requirements. He is amenable to going to acute rehab and hopefully will help availability in the next 48 hours. 08/19: Pain improved to the point where he is able to lay flat had a CT chest that was ordered several days ago. Still no O2 requirements. Still pretty weak and needing some assistance. Still wants to go to acute rehab. Potassium 3.3 today on oral replacement. Pain stable. CTPA with no acute abnormalities. Weak and needing assistance. Going to acute rehab today Consults: PMR, Cardiology, Pulmonology Problem list: fall, acute neck pain MRI back shows acute t7 transferse fracture, T7 vertebral body fracture. - Transversely oriented fracture involving the T7 vertebral body without significant retropulsion or height loss. posterior epidural hematoma resulting in mild mass effect on the thecal sac without compression of the cord. No cord signal alteration is identified. Afib, on eliquis, chronic diastolic CHF, restarted Eliquis obese, BMI 42 Acute dysphagia Hallucinations H/O Prostate cancer. COVID-19 + - with history of previous COVID infection in 11/01 and received both doses of Moderna vaccine since then. Echo: The LV EF is about 55%. The LA is mildly enlarged. The aortic root and the proximal ascending aorta are mildly enlarged. Mild MR and mild TR noted. The PA systolic pressure is mildly elevated. STRESS TEST FINDINGS: 03/04/2017 [facility] Pharmacological Stress Electrocardiogram: The patient's resting heart rate was 65 bpm and the resting blood pressure was 168/68. The patients peak stress heart rate was 91 bpm and the peak stress blood pressure was 158/87. His resting ECG demonstrated atrial fibrillation with a heart rate of 53, there are nonspecific T-wave changes noted. During pharmacologic stress he complained of shortness of breath. This resolved during the recovery phase. During the stress and the recovery phase he had occasional PVCs. He remained in atrial fib throughout. There is no ST segment changes noted. Conclusion: Pharmacologic stress ECG is negative for ischemia. Plan: Acute rehab referral Continue steroids for total of 1 additional day Continue Vit. C, D and zinc DVT/GI PPX :Eliquis needs to wear brace when up except for when showering neurosurgery follow in 2 weeks with thoracic spine films Greater than 30 minutes spent on d/c to [facility] for acute rehab Discharge Information Condition at Discharge: Improved Follow Up: Weeks (1) Disposition/Orders: D/C to Another Facility ([facility]) Scheduled Apixaban (Eliquis) 5 Mg Tablet, 5 MG PO BID for afib, (Reported) Entered as Reported by: KELSEA BRANDON on 08/09/2011 Last Action: Edited on 08/12/[address]15 by Re [address] [facility] Ascorbic Acid (Vitamin C) 500 Mg Tablet, 500 MG PO DAILY for SYEDA for 30 Days, #30 Prescribed by: SOULEYMANE LEVIN MD on 08/20/20 1011 Cholecalciferol (Vitamin D3) (Vitamin D3 ) 25 Mcg Tablet, 1,000 UNIT PO DAILY for Vit D def for 30 Days, #30 Prescribed by: SOULEYMANE LEVIN MD on 08/20/20 1011 Dexamethasone (Decadron) 4 Mg Tablet, 6 MG PO DAILYWBKFT for COVID for 1 Days, #2 Prescribed by: SOULEYMANE LEVIN MD on 08/20/20 1011 Gabapentin (Neurontin) 600 Mg Tablet, 600 MG PO TID for NEUROGENIC PAIN, (Reported) Entered as Reported by: KELSEA BRANDON on 08/08/202141 Last Action: Reviewed on 08/09/20710 by KELSEA BRANDON Lidocaine (Lidocaine PATCH ) 1 Each Adh..patch, 1 PATCH TD DAILY for back pain, #10 Prescribed by: IDANIA TALAMANTES on 08/10/20 1159 Metoprolol Succinate (Metoprolol Succinate ( Xl )) 25 Mg Tab.er.24h, 12.5 MG PO DAILY for CHF for 30 Days, #15 Ref 2 Prescribed by: SOULEYMANE LEVIN MD on 08/20/20 1011 Polyethylene Glycol 3350 (Polyethylene Glycol 3350) 17 Gm Powd.pack, 17 GM PO DAILY for Constipation for 30 Days, #30 Prescribed by: SOULEYMANE LEVIN MD on 08/20/20 1011 Psyllium Husk/Aspartame (Metamucil Fiber Singles Packet) 3.4 Gm Powd.pack, 1 PKT PO QHS for Constipation for 30 Days, #30 Prescribed by: SOULEYMANE LEVIN MD on 08/20/20 1011 Zinc Sulfate (Zinc Sulfate) 50 Mg Capsule, 50 MG PO DAILY for COVID for 30 Days, #30 Prescribed by: SOULEYMANE LEVIN MD on 08/20/20 1011 Scheduled PRN Acetaminophen (Acetaminophen) 325 Mg Tablet, 650 MG PO PRN Q6HRS PRN for MILD PAIN / TEMP > 100.3'F for 30 Days, #120 Prescribed by: SOULEYMANE LEVIN MD on 08/20/20 1011 Oxycodone HCl/Acetaminophen (Percocet 5-325 mg Tablet) 1 Each Tablet, 1 TAB PO PRN TID PRN for PAIN MDD 3 Tablet(s), #20 Ref 0 Prescribed by: IDANIA TALAMANTES on 08/10/20 1159 Justicifation of Admission Dx: Justifications for Admission: Justification of Admission Dx: Yes Fracture: Fracture SOULEYMANE LEVIN MD Aug 20, 2020 12:29
--- NOTE | 2020-08-20 14:30 | NUR ---
Report called to JORGE Gaytan at [facility]. Discharge orders have been faxed. Follow up appointments was discussed with Lucila and the pt. Appointment card and contact information given. Pt awaiting transportation from [facility] to arrive.
== END 2020-08-20 13:05 | DRG 551 ==
LOC: 4 NORTH 20:25 → 6 SOUTH 08-12 16:13
PROVIDERS: ADMIT Internal Medicine; ATTEND Internal Medicine
DX: S22.069A Unspecified fracture of T7-T8 vertebra, initial encounter for closed fracture (principal); U07.1 COVID-19; J96.01 Acute respiratory failure with hypoxia; I48.21 Permanent atrial fibrillation; I50.32 Chronic diastolic (congestive) heart failure; J98.11 Atelectasis; Z68.41 Body mass index [BMI] 40.0-44.9, adult; C61 Malignant neoplasm of prostate; E66.01 Morbid (severe) obesity due to excess calories; G62.9 Polyneuropathy, unspecified; I11.0 Hypertensive heart disease with heart failure; I25.10 Atherosclerotic heart disease of native coronary artery without angina pectoris; J20.8 Acute bronchitis due to other specified organisms; M48.02 Spinal stenosis, cervical region; R13.10 Dysphagia, unspecified; W01.0XXA Fall on same level from slipping, tripping and stumbling without subsequent striking against object, initial encounter; Y92.009 Unspecified place in unspecified non-institutional (private) residence as the place of occurrence of the external cause; Z79.01 Long term (current) use of anticoagulants; Z85.46 Personal history of malignant neoplasm of prostate; Z86.73 Personal history of transient ischemic attack (TIA), and cerebral infarction without residual deficits; Z87.891 Personal history of nicotine dependence; Z96.653 Presence of artificial knee joint, bilateral; K21.9 Gastro-esophageal reflux disease without esophagitis; M19.90 Unspecified osteoarthritis, unspecified site; Z60.2 Problems related to living alone; Y93.89 Activity, other specified; Y99.8 Other external cause status
CPT/HCPCS: 36415; 70450; 71045; 71275; 72125; 72146; 80048; 80053; 80061; 82306; 82607; 82728; 83735; 84443; 85025; 87426; 93005; 93306; 94640; 94760; G0238; J1170; J2060; J7030; Q9967; U0003; U0005; 92526-GN; 92610-GN; 97110-GP; 97116-GP; 97530-GO; 97530-GP; 97535-GO; G0378; J7613

== ENCOUNTER → 2020-08-31 | Outpatient (CLI) | payer MEDICARE, OTHER ==
[2020-08-20 11:00] VITALS: BP 134/72
[~2020-08-31] MED LIST: ACET325T21 PO; APIX5TAB PO; ASCO500T4 PO; CHOL10004 PO; DEXA4TAB63 PO; GABA600T PO; LIDO700A21 TD; METO-239 PO; OXYC-325 PO; POLY17PO52 PO; PSYL3.4P PO; ZINC220C5 PO
--- NOTE | 2020-09-01 08:28 | RAD ---
XR THORACIC SPINE 3VIEWS 09/01/2020 8:20 AM Indication: T7 fracture Comparison: There are thoracic spine August 09, 2020 Technique: 2 views of the thoracic spine Findings: Bone mineralization appears decreased, limiting bony detail. T7 fracture identified on MRI is radiogr aphically occult. The vertebral body heights are maintained. There is flowing marginal osteophytosis. There is joint space narrowing throughout the thoracic spine. Impression: 1. Previously identified T7 fractures not seen by x-ray. There is no vertebral body height loss. 2. Degenerative disc disease throughout the thoracic spine. Electronically signed by: Carlos Rondon (09/01/2020 8:26 AM) [id number]
== END ==
LOC: RAD 15:23
PROVIDERS: ATTEND Neurological Surgery
DX: M51.34 Other intervertebral disc degeneration, thoracic region (principal); M48.04 Spinal stenosis, thoracic region
CPT/HCPCS: 72072